=== PATIENT | female | born 1965 | race Two or more races ===

== ENCOUNTER 2020-01-31 10:23 | Emergency (ER) | payer OTHER, SELFPAY ==
[2020-01-31 11:57] VITALS: BP 127/67; PULSE 65; RESP 16; TEMP 37; O2SAT 98; BMI 37.4
[2020-01-31 13:04] VITALS: BP 124/73; PULSE 55; RESP 14; TEMP 36.7; O2SAT 97
--- NOTE | 2020-01-31 13:09 | ECG_ITS ---
Test Reason : CHEST PAIN Blood Pressure : / mmHG Vent. Rate : 055 BPM Atrial Rate : 055 BPM P-R Int : 152 ms QRS Dur : 084 ms QT Int : 430 ms P-R-T Axes : 042 014 012 degrees QTc Int : 411 ms Sinus bradycardia Otherwise normal ECG When compared with ECG of 03/20/18 No significant changes seen Referred By: Tanner Edmondson Electronically Signed By:KARLA HERNANDEZ MD
--- NOTE | 2020-01-31 13:09 | XR_ITS ---
EXAMINATION: XR CHEST CLINICAL INFORMATION: Chest pain COMPARISON: 10/26/2012 TECHNIQUE: Frontal view of the chest was obtained. FINDINGS: Cardiac leads overlie the chest. The lungs are well expanded. Right suprahilar opacity noted. No edema or effusion. No pneumothorax. The cardiomediastinal silhouette is within normal limits. No acute osseous abnormality. IMPRESSION: Right suprahilar airspace opacity may represent atelectasis or pneumonia. Aspiration possible.
[2020-01-31 13:48] LABS: MANUAL DIFF FLAG NO
[2020-01-31 13:52] LABS: Basophils Percent Auto 0.4 % (0-2); Eosinophils Absolute Auto 0.1 X10*3/uL (0.0-0.4); Eosinophils Percent Auto 1.5 % (0-4); Hematocrit 35.6 % (37-47); Hemoglobin 11.8 g/dl (12.0-16.0); Imm Gran Abs Auto 0.02 X10*3/uL (0.00-0.03); Imm Gran Pct Auto 0.4 % (0.0-0.4); Lymphocytes Absolute Auto 1.9 X10*3/uL (1.2-4.9); Lymphocytes Percent Auto 36.8 % (20-40); Mean Corpuscular HGB Conc 33.1 g/dl (31.0-35.0); Mean Corpuscular Hemoglobin 28.9 pg (27.0-33.0); Mean Platelet Volume 11.4 fL (9.4-12.3); Monocytes Absolute Auto 0.4 X10*3/uL (0.1-1.2); Monocytes Percent Auto 7.6 % (2-11); Neutrophils Absolute Auto 2.8 X10*3/uL (2.0-8.3); Neutrophils Percent Auto 53.3 % (45-73); Platelet Count 198 X10*3/uL (160-400); Red Blood Count 4.09 X10*6/uL (4.20-5.50); White Blood Count 5.3 X10*3/uL (4.8-10.8)
[2020-01-31 14:00] VITALS: BP 126/78; PULSE 58; RESP 14; TEMP 36.7; O2SAT 98
[2020-01-31 14:10] LABS: D Dimer 202 NG/ML
[2020-01-31 14:11] LABS: Anion Gap 13 (12-20); Blood Urea Nitrogen 17 mg/dL (9-16); Calcium 8.8 mg/dL (8.4-10.2); Carbon Dioxide 25 mmol/L (22-29); Chloride 105 mmol/L (96-108); Estimated Glomerular Filt Rate > 60; Glucose Random 80 mg/dL (60-115); Potassium 4.1 mmol/l (3.3-5.1); Sodium 139 mmol/L (135-145)
--- NOTE | 2020-01-31 14:16 | ED.CHESTPAIN ---
HPI - Chest Pain General Chief Complaint: Chest Pain Stated Complaint: CHEST PAIN Time Seen by Provider: 01/31/20 13:08 Source: patient Mode of arrival: ambulatory Limitations: no limitations History of Present Illness HPI narrative: otherwise healthy 55-year-old female who reports that she has had some right-sided chest pain for the past couple of days with mild rhinorrhea and some cough that resolved. She otherwise denies any fever chills. 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 She denies any travel. No recent antibiotics. No history of asthma. MD complaint: chest pain Onset (ago): day(s) Onset: during rest Pain location: right chest Pain radiation: none Severity: mild Quality: aching Relieving factors: other ( Has not done anything) Exacerbating factors: nothing Treatment prior to arrival: none Risk Factors Coronary artery disease risk factors: none Related Data Previous Rx's Medication Instructions Recorded azithromycin [Zithromax Z-Wallace] 250 mg PO DAILY 5 Days #6 tab 01/31/20 doxycycline hyclate 100 mg PO BID #20 tab 01/31/20 Allergies Allergy/AdvReac Type Severity Reaction Status Date / Time ibuprofen [IBUPROFEN] Allergy Unknown GI UPSET Unverified 01/03/20 15:17 Review of Systems Review of Systems: Constitutional: No Weight loss, No Fever, + Chills, No Night Sweats, No Fatigue, No Malaise ENT/Mouth: No Hearing loss, No Ear Pain, No Nasal Congestion, No Sinus Pain, No Hoarseness, No sore throat, No Rhinorrhea, No Swallowing Difficulty Eyes: No Eye Pain, No Swelling, No Redness, No Foreign Body, No Discharge, No Vision Changes Cardiovascular: + Chest Pain, No SOB, No Dyspnea on Exertion, No Orthopnea, No Edema, No Palpitations Respiratory: No Cough, No Sputum, No Wheezing, No Smoke Exposure, No Dyspnea Gastrointestinal: No Nausea, No Vomiting, No Diarrhea, No Constipation, No abdominal Pain, No Hematochezia, No Melena Genitourinary: no irregular bleeding, No Dysuria, No Urinary Frequency, No Hematuria, No Urinary Incontinence, No Urgency, No Flank Pain, No Urinary Flow Changes, No Hesitancy Musculoskeletal: No joint pain, No Myalgias, No Joint Swelling Skin: No Skin Lesions, No rash Neuro: No Weakness, No Numbness, No Paresthesias, No Loss of Consciousness, No Dizziness, No Headache Psych: No Anxiety/Panic, No Depression, No SI/HI/AH/VH, No Social Issues, Heme/Lymph: No Bruising, No Bleeding,No Lymphadenopathy Endocrine: No Polyuria, No Polydipsia, No Temperature Intolerance [facility] Past Medical History Medical History (Updated 01/31/20 @ 16:08 by Tanner Edmondson NP) No known health problems Surgical History (Updated 01/31/20 @ 11:59 by Clayton Smiley) Knee joint replacement status S/P cholecystectomy Social History Social History Advance Directives: No Advance Directives Information Provided: No Physical Exam Vital Signs: Vital Signs: Vital Signs Temp Pulse Resp BP Pulse Ox 01/31/20 15:37 98.2 F 61 15 99/59 L 95 01/31/20 14:00 98.1 F 58 14 126/78 98 01/31/20 13:04 98.1 F 55 14 124/73 97 01/31/20 11:57 98.6 F 65 16 127/67 98 Body Mass Index 37.4 Reviewed Const: General: cooperative and healthy appearing; No acute distress or intoxicated appearing Nutritional Appearance: average body habitus Orientation/consciousness: patient oriented x3 HENMT: Head: Yes normal to inspection Ears: hearing grossly normal bilaterally Eyes: General: appearance normal, both eyes and all related structures Visual Peñaloza: normal visual peñaloza by confrontation Neck: Neck: Yes normal visual inspection and No tender Thyroid: Thyroid normal Chest: Chest palpation & inspection: normal inspection of the chest Resp: Effort & Inspection: normal respiratory effort Cardio: Jugular venous distension: no JVD GI: Inspection: Yes normal to inspection Percussion: Yes normal to percussion Auscultation: normal bowel sounds : General: Yes no CVA tenderness Back/Spine/Pelvis: Back: no CVA tenderness Skin: General skin exam: no rashes or lesions noted Neuro: General: patient oriented x3 Extrem: General: Yes normal to inspection Course Course Course Narrative: x-ray findings consistent with atypical pneumonia in the right side did have mild cough but resolved. Mild rhinorrhea. Otherwise hemodynamically stable. No leukocytosis. Afebrile. COVID-19 negative. No shortness of breath on exertion. Pulse ox 100% on room air. Will discharge home with course of antibiotics with close follow-up for repeat x-ray for resolution. Plan reviewed and agreeable. Stable for discharge. MDM - Chest Pain Differential Diagnosis Differential diagnosis: Likely unstable angina pectoris, atypical chest pain ( pneumonia, costochondritis) and chest pain; Unlikely fracture of rib and pneumothorax Lab Data Attestation: I reviewed the patient's lab results. Result diagrams: 01/31/20 01:40 01/31/20 13:31 Labs: Lab Results 01/31/20 01/31/20 01/31/20 Range/Units 01:40 13:31 13:31 WBC 5.3 (4.8-10.8) X10*3/uL RBC 4.09 L (4.20-5.50) X10*6/uL Hgb 11.8 L (12.0-16.0) g/dl Hct 35.6 L (37-47) % MCV 87.0 (80-98) fL MCH 28.9 (27.0-33.0) pg MCHC 33.1 (31.0-35.0) g/dl RDW 14.0 (11.0-16.0) % Plt Count 198 (160-400) X10*3/uL MPV 11.4 (9.4-12.3) fL Immature Gran % (Auto) 0.4 (0.0-0.4) % Neut % (Auto) 53.3 (45-73) % Lymph % (Auto) 36.8 (20-40) % [place] % (Auto) 7.6 (2-11) % Eos % (Auto) 1.5 (0-4) % Baso % (Auto) 0.4 (0-2) % Lymph # (Auto) 1.9 (1.2-4.9) X10*3/uL [place] # (Auto) 0.4 (0.1-1.2) X10*3/uL Eos # (Auto) 0.1 (0.0-0.4) X10*3/uL Baso # (Auto) 0.0 (0.0-0.2) X10*3/uL Abs Immat Gran (auto) 0.02 (0.00-0.03) X10*3/uL Absolute Neuts (auto) 2.8 (2.0-8.3) X10*3/uL Absolute Nucleated RBC 0.000 (0.0-0.012) X10*3/uL Nucleated RBC % (auto) 0.0 (0.0-0.2) /100WBC D-Dimer NG/ML Sodium 139 (135-145) mmol/L Potassium 4.1 (3.3-5.1) mmol/l Chloride 105 (96-108) mmol/L Carbon Dioxide 25 (22-29) mmol/L Anion Gap 13 (12-20) BUN 17 H (9-16) mg/dL Creatinine 0.67 (0.5-1.4) mg/dL Estim Creat Clear Calc 115.0 Estimated GFR > 60 Random Glucose 80 (60-115) mg/dL Calcium 8.8 (8.4-10.2) mg/dL Troponin I High Sens < 3.5 (<3.5-17.0) ng/L Coronavirus (PCR) (Negative) 01/31/20 01/31/20 Range/Units 13:31 14:05 WBC (4.8-10.8) X10*3/uL RBC (4.20-5.50) X10*6/uL Hgb (12.0-16.0) g/dl Hct (37-47) % MCV (80-98) fL MCH (27.0-33.0) pg MCHC (31.0-35.0) g/dl RDW (11.0-16.0) % Plt Count (160-400) X10*3/uL MPV (9.4-12.3) fL Immature Gran % (Auto) (0.0-0.4) % Neut % (Auto) (45-73) % Lymph % (Auto) (20-40) % [place] % (Auto) (2-11) % Eos % (Auto) (0-4) % Baso % (Auto) (0-2) % Lymph # (Auto) (1.2-4.9) X10*3/uL [place] # (Auto) (0.1-1.2) X10*3/uL Eos # (Auto) (0.0-0.4) X10*3/uL Baso # (Auto) (0.0-0.2) X10*3/uL Abs Immat Gran (auto) (0.00-0.03) X10*3/uL Absolute Neuts (auto) (2.0-8.3) X10*3/uL Absolute Nucleated RBC (0.0-0.012) X10*3/uL Nucleated RBC % (auto) (0.0-0.2) /100WBC D-Dimer 202 NG/ML Sodium (135-145) mmol/L Potassium (3.3-5.1) mmol/l Chloride (96-108) mmol/L Carbon Dioxide (22-29) mmol/L Anion Gap (12-20) BUN (9-16) mg/dL Creatinine (0.5-1.4) mg/dL Estim Creat Clear Calc Estimated GFR Random Glucose (60-115) mg/dL Calcium (8.4-10.2) mg/dL Troponin I High Sens (<3.5-17.0) ng/L Coronavirus (PCR) NEGATIVE (Negative) Imaging Data Chest x-ray: Radiologist's impression: [place] [id number] XRay Report Signed Patient: Carolyn Stokes LMR#: [id number] : 1965Acct:[id number] Age/Sex: 55 / FADM Date: 01/31/20 Loc: .ED Attending Dr: Ordering Physician: Tanner Edmondson NP Date of Service: 01/31/20 Procedure(s): XR chest 1V Accession Number(s): [id number] cc: Tanner Edmondson MARKETING INFORMATION COORDINATOR~ EXAMINATION: XR CHEST CLINICAL INFORMATION: Chest pain COMPARISON: 10/26/2012 TECHNIQUE: Frontal view of the chest was obtained. FINDINGS: Cardiac leads overlie the chest. The lungs are well expanded. Right suprahilar opacity noted. No edema or effusion. No pneumothorax. The cardiomediastinal silhouette is within normal limits. No acute osseous abnormality. IMPRESSION: Right suprahilar airspace opacity may represent atelectasis or pneumonia. Aspiration possible. Dictated By:LANEY GREEN MD Signed By:<Electronically signed by LANEY GREEN MD in OV>01/31/20 1344 DD/ 1309 TD/TT: Building Cleaner: DONNA Discharge Plan Discharge Clinical Impression: Pneumonia Qualifiers: Pneumonia type: due to unspecified organism Laterality: right Lung location: unspecified part of lung Qualified Code(s): J18.9 - Pneumonia, unspecified organism Patient Disposition: Home, Self-Care Instructions: Community Acquired Pneumonia (ED) Additional Instructions: today you were evaluated for your right-sided chest pain and the workup shows that you have developing pneumonia on the right side Your blood work overall was okay including blood work for heart Your COVID test was negative Drink plenty of fluids Take medications as prescribed for the full course return if any concerns or worsening symptoms otherwise follow up with her primary care doctor and 1 week for re-evaluation. Thank you Prescriptions: New azithromycin [Zithromax Z-Wallace] 250 mg tablet 250 mg PO DAILY 5 Days Qty: 6 RF: 0 doxycycline hyclate 100 mg tablet 100 mg PO BID Qty: 20 RF: 0 Referrals: Po,Negra Mcpherson MD [Primary Care Provider] - 1 week Stand Alone Forms: Work/School Release
[2020-01-31 14:33] LABS: Troponin-I High Sensitivity < 3.5 ng/L (<3.5-17.0)
[2020-01-31 15:14] LABS: SARS COV2 PCR INHOUSE NEGATIVE (Negative)
[2020-01-31 15:37] VITALS: BP 99/59; PULSE 61; RESP 15; TEMP 36.8; O2SAT 95
== END 2020-01-31 16:42 | disposition home or self-care (01) ==
PROVIDERS: Nurse Practitioner Primary Care; Emergency Provider Emergency Medicine; PCP Internal Medicine
DX: J18.9 Pneumonia, unspecified organism (principal); Z20.828 Contact with and (suspected) exposure to other viral communicable diseases
CPT/HCPCS: 36415; 71045; 80048; 84484; 85025; 85379; 87635; 93005; 99284

== ENCOUNTER 2020-04-11 03:05 | Emergency (ER) | payer OTHER, SELFPAY ==
[2020-04-11 03:20] VITALS: BP 132/84; PULSE 120; RESP 18; TEMP 37.7; O2SAT 95; BMI 43.0
--- NOTE | 2020-04-11 03:47 | XR_ITS ---
EXAMINATION: CHEST 1 VIEW CLINICAL INFORMATION: Covid positivity. COMPARISON: 01/31/2020. TECHNIQUE: An AP view of the chest is provided. FINDINGS: The cardiac silhouette is not enlarged. The mediastinal and hilar contours are unremarkable. There are neither pleural effusions nor pneumothoraces. There are no consolidations. The osseous structures are stable. XR/XR chest 1V IMPRESSION: No evidence for acute disease.
[2020-04-11 04:46] LABS: IDNOW Serial# 9DD0AD1C
[2020-04-11] MEDS: Acetaminophen 325 MG TABLET 650 MG PO (04:46)
[2020-04-11] MEDS: dexAMETHasone 6 MG TABLET PO (04:46)
[2020-04-11 04:48] VITALS: BP 134/63; PULSE 101; RESP 18; O2SAT 95
[2020-04-11 04:48] LABS: COVID-19 Test Positive (Negative)
--- NOTE | 2020-04-11 04:53 | ED_ITS ---
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 cough body ache since yesterday also complaining of headache she worked yesterday no one at home is sick denies any shortness of breath no known COVID-19 contact MD elicited complaint: fever, cough and sore throat Onset (ago): day(s) (2) Consistency: constant Severity: moderate Description of mucous: clear Able to tolerate fluids by mouth: Yes Exacerbating factors: nothing Relieving factors: nothing Associated symptoms: fever, chills, myalgias, headache, rhinorrhea, nasal congestion and sore throat Treatments prior to arrival: none Related Data Previous Rx's Medication Instructions Recorded azithromycin [Zithromax Z-Wallace] 250 mg PO DAILY 5 Days #6 tab 01/31/20 doxycycline hyclate 100 mg PO BID #20 tab 01/31/20 azithromycin [Zithromax] 250 mg PO DAILY 4 Days #4 tab 04/11/20 dexamethasone [Decadron] 6 mg PO DAILY #7 tab 04/11/20 Allergies Allergy/AdvReac Type Severity Reaction Status Date / Time ibuprofen [IBUPROFEN] Allergy Unknown GI UPSET Unverified 01/03/20 15:17 Review of Systems Review of Systems: Constitutional : No Weight loss, ENT/Mouth : No sore throat, No Rhinorrhea Eyes: No Eye Pain, No Swelling Cardiovascular : No Chest Pain, no palpitations Respiratory : No Sputum, no shortness of breath Gastrointestinal : no Nausea, No Vomiting, No Diarrhea, No abdominal Pain, no black stools Genitourinary : No Dysuria, No Urinary Frequency Musculoskeletal : No joint pain, ++ Myalgias, No Joint Swelling Skin : No Skin Lesions, No rash Neuro : No Weakness, No Numbness, No Dizziness, No Headache Psych : No Anxiety/Panic, No Depression Heme/Lymph: No Bruising, No Lymphadenopathy Endocrine : No Polyuria, No Polydipsia All other systems reviewed and are negative PMFSH Past Medical History Medical History Hospital discharge follow-up No known health problems Pneumonia Surgical History History of arthroscopy of both knees History of foot surgery History of tubal ligation Knee joint replacement status S/P cholecystectomy Family History Family History Father Diabetes Hypertension Mother No problems noted. Social History Social History Advance Directives: No Advance Directives Information Provided: No Physical Exam Vital Signs: Vital Signs: Last Vital Signs Temp 99.9 F 04/11/20 03:20 Pulse 101 H 04/11/20 04:48 Resp 18 04/11/20 04:48 BP 134/63 04/11/20 04:48 Pulse Ox 95 04/11/20 04:48 Body Mass Index 43.0 Appearance: Alert. Oriented X3. No acute distress. Eyes: Pupils equal, round and reactive to light. ENT: Pharynx normal. Neck: Normal inspection. Neck supple. CVS: Tachycardia, normal rhythm no murmur Pulses normal. Respiratory: No respiratory distress. Breath sounds normal. Abdomen: Soft and nontender. Bowel sounds are present, no mass palpable, no CVA tenderness Skin: Skin warm and dry. Normal skin color. Normal skin turgor. Extremities: No lower extremity edema. Neuro: Oriented X 3. No motor deficit. No sensory deficit. MDM - URI/Sore Throat MDM Narrative Medical decision making narrative: Is COVID-19 positive 95% saturating at room air chest x-ray negative will discharge her home on Decadron and Zithromax Lab Data Attestation: I reviewed the patient's lab results. Labs: Lab Results 04/11/20 Range/Units 04:08 COVID-19 (STEVEN) Positive A (Negative) COVID-19 Clin Com See Note Discharge Plan Discharge Clinical Impression: COVID-19 Patient Disposition: Home, Self-Care Instructions: COVID-19 (Coronavirus Disease 2019) (ED) Additional Instructions: Drink plenty of fluid take Tylenol for fever take medication as prescribed. Keep social distancing. Report to the ER/PCP if increased shortness of breath Prescriptions: New azithromycin [Zithromax] 250 mg tablet 250 mg PO DAILY 4 Days Qty: 4 RF: 0 dexamethasone [Decadron] 6 mg tablet 6 mg PO DAILY Qty: 7 RF: 0 No Action azithromycin [Zithromax Z-Wallace] 250 mg tablet 250 mg PO DAILY 5 Days Qty: 6 RF: 0 doxycycline hyclate 100 mg tablet 100 mg PO BID Qty: 20 RF: 0
[2020-04-11] MEDS: Azithromycin 500 MG TABLET PO (05:09)
[2020-04-11 05:34] VITALS: O2SAT 95
== END 2020-04-11 05:36 | disposition home or self-care (01) ==
PROVIDERS: Emergency Provider Internal Medicine; PCP Internal Medicine
DX: U07.1 COVID-19 (principal); R05 Cough; M79.10 Myalgia, unspecified site; R51.9 Headache, unspecified; Z79.899 Other long term (current) drug therapy
CPT/HCPCS: 71045; 87635; 99283; 99285; J8540

== ENCOUNTER 2020-04-21 17:59 | Emergency (ER) | payer OTHER, SELFPAY ==
[2020-04-21 18:45] VITALS: BP 133/73; PULSE 88; RESP 20; TEMP 37.4; O2SAT 97; BMI 36.3
--- NOTE | 2020-04-21 19:02 | XR_ITS ---
EXAMINATION: XR CHEST CLINICAL INFORMATION: Worsening shortness of breath and cough COMPARISON: 04/11/2020, 01/31/2020 and 10/26/2012 TECHNIQUE: Frontal view of the chest was obtained. FINDINGS: Compared to the prior study, lung volumes are decreased. I suspect that there are subtle ill-defined patchy infiltrates present bilaterally. No gross consolidation is seen. No pleural effusions are present. Heart size normal without CHF. XR/XR chest 1V IMPRESSION: Hypoventilated lungs with ill-defined patchy infiltrates.
--- NOTE | 2020-04-21 19:24 | ED.SOB ---
HPI - SOB/Dyspnea General Chief Complaint: Dyspnea Stated Complaint: SOB Time Seen by Provider: 04/21/20 18:47 Source: patient Mode of arrival: ambulatory Limitations: no limitations History of Present Illness HPI Narrative: Patient comes to the emergency room complaining of shortness of breath. Patient states she was diagnosed with COVID on April 11. Patient states that she told a friend that she was having shortness of breath, and they told her to come to the emergency room. MD elicited complaint: shortness of breath and cough Related Data Previous Rx's Medication Instructions Recorded azithromycin [Zithromax Z-Wallace] 250 mg PO DAILY 5 Days #6 tab 01/31/20 doxycycline hyclate 100 mg PO BID #20 tab 01/31/20 azithromycin [Zithromax] 250 mg PO DAILY 4 Days #4 tab 04/11/20 dexamethasone [Decadron] 6 mg PO DAILY #7 tab 04/11/20 benzonatate [Tessalon Perles] 100 mg PO TID PRN #14 cap 04/21/20 dexamethasone 6 mg PO DAILY #5 tab 04/21/20 Allergies Allergy/AdvReac Type Severity Reaction Status Date / Time ibuprofen [IBUPROFEN] Allergy Unknown GI UPSET Verified 04/21/20 20:55 Review of Systems Review of Systems: Constitutional : No Weight loss, No Fever, No Chills, No Night Sweats, No Fatigue, No Malaise ENT/Mouth : No Hearing loss, No Ear Pain, No Nasal Congestion, No Sinus Pain, No Hoarseness, No sore throat, No Rhinorrhea, No Swallowing Difficulty Eyes: No Eye Pain, No Swelling, No Redness, No Foreign Body, No Discharge, No Vision Changes Cardiovascular : No Chest Pain, No SOB, No Dyspnea on Exertion, No Orthopnea, No Edema, No Palpitations Respiratory : Complaining of cough, shortness of breath while coughing No Wheezing, No Smoke Exposure Gastrointestinal : No Nausea, No Vomiting, No Diarrhea, No Constipation, No abdominal Pain, No Hematochezia, No Melena Genitourinary : no irregular bleeding, No Dysuria, No Urinary Frequency, No Hematuria, No Urinary Incontinence, No Urgency, No Flank Pain, No Urinary Flow Changes, No Hesitancy Musculoskeletal : No joint pain, No Myalgias, No Joint Swelling Skin : No Skin Lesions, No rash Neuro : No Weakness, No Numbness, No Paresthesias, No Loss of Consciousness, No Dizziness, No Headache Psych : No Anxiety/Panic, No Depression, No SI/HI/AH/VH, No Social Issues, Heme/Lymph: No Bruising, No Bleeding,No Lymphadenopathy Endocrine : No Polyuria, No Polydipsia, No Temperature Intolerance [facility] Past Medical History Medical History Hospital discharge follow-up No known health problems Pneumonia Surgical History History of arthroscopy of both knees History of foot surgery History of tubal ligation Knee joint replacement status S/P cholecystectomy Family History Family History Father Diabetes Hypertension Mother No problems noted. Social History Social History Alcohol intake: never Smoking Status: Never smoker Advance Directives: No Advance Directives Information Provided: Yes Physical Exam Vital Signs: Vital Signs: Last Vital Signs Temp 99.3 F 04/21/20 18:45 Pulse 88 04/21/20 18:45 Resp 20 04/21/20 18:45 BP 133/73 04/21/20 18:45 Pulse Ox 97 04/21/20 18:45 Body Mass Index 36.3 Appearance: Alert. Oriented X3. No acute distress. Eyes: Pupils equal, round and reactive to light. ENT: Pharynx normal. Neck: Normal inspection. Neck supple. No lymph nodes noted. No crepitus CVS: Normal heart rate and rhythm. Pulses normal. Normal S1 and S2 Respiratory: No respiratory distress. Breath sounds normal. No Wheezing. No rales , actively coughing Abdomen: Soft and nontender. No rigidity. No distention. good BS x4 Skin: Skin warm and dry. Normal skin color. Normal skin turgor. Extremities: No lower extremity edema. No lower extremity edema. No Lacerations. No Rash Neuro: Oriented X 3. No motor deficit. No sensory deficit. Moving all extermities. No slurred speech. Course Course Course Narrative: Patient is known to have COVID-19. Chest x-ray shows that there is decrease lung volume, however, patient's oxygen saturation remains constantly at 95-96%. Patient will be sent home with oral Decadron MDM - SOB/Dyspnea Imaging Data Chest x-ray: Radiologist's impression: Compared to the prior study, lung volumes are decreased. I suspect that there are subtle ill-defined patchy infiltrates present bilaterally. No gross consolidation is seen. No pleural effusions are present. Heart size normal without CHF. XR/XR chest 1V IMPRESSION: Hypoventilated lungs with ill-defined patchy infiltrates. Discharge Plan Discharge Clinical Impression: COVID-19, Cough Patient Disposition: Home, Self-Care Instructions: COVID-19 (Coronavirus Disease 2019) (ED) Additional Instructions: Please follow-up with your primary care physician tomorrow. If you have any worsening or new symptoms, please return to the emergency room or call 911 Prescriptions: New benzonatate [Tessalon Perles] 100 mg capsule 100 mg PO TID PRN (Reason: cough) Qty: 14 RF: 0 dexamethasone 6 mg tablet 6 mg PO DAILY Qty: 5 RF: 0 No Action azithromycin [Zithromax] 250 mg tablet 250 mg PO DAILY 4 Days Qty: 4 RF: 0 dexamethasone [Decadron] 6 mg tablet 6 mg PO DAILY Qty: 7 RF: 0 azithromycin [Zithromax Z-Wallace] 250 mg tablet 250 mg PO DAILY 5 Days Qty: 6 RF: 0 doxycycline hyclate 100 mg tablet 100 mg PO BID Qty: 20 RF: 0
[2020-04-21] MEDS: dexAMETHasone 6 MG TABLET PO (21:06)
[2020-04-21] MEDS: Benzonatate 100 MG CAPSULE PO (21:06)
[2020-04-21 21:07] VITALS: PULSE 91; O2SAT 97
== END 2020-04-21 21:11 | disposition home or self-care (01) ==
PROVIDERS: Emergency Provider Emergency Medicine
DX: R05 Cough (principal); R06.02 Shortness of breath; Z86.16 Personal history of COVID-19
CPT/HCPCS: 71045; 99283; 99284; J8540

== ENCOUNTER → 2020-06-17 14:27 | Outpatient (BNVA) | payer OTHER, SELFPAY | PROVIDERS: PCP Internal Medicine; Visit Provider Orthopaedic Surgery | DX: M17.12 Unilateral primary osteoarthritis, left knee (principal) | CPT/HCPCS: 20610; J1040 ==

== ENCOUNTER → 2021-01-05 09:16 | Outpatient (BNVA) | payer SELFPAY | PROVIDERS: PCP Internal Medicine ==

== ENCOUNTER 2021-02-07 08:04 | Outpatient (REF) | payer OTHER, SELFPAY ==
--- NOTE | ~2021-02-07 | MM_ITS ---
EXAMINATION: MM SCREENING DIGITAL BREAST TOMOSYNTHESIS, BILATERAL CLINICAL INFORMATION: Screening. Asymptomatic. The lifetime risk of breast cancer based on the Tyrer-Cuzick Model is 6%. COMPARISON: Mammography: 10/13/2019, 09/23/2018, 08/13/2017 TECHNIQUE: Digital breast tomosynthesis is performed in both the craniocaudal and mediolateral oblique views along with computer-aided detection (CAD). Synthesized 2D images are generated from the tomosynthesis. FINDINGS: The breasts are almost entirely fatty (ACR BI-RADS breast composition Category a). There are no significant masses, abnormal calcifications, or other abnormalities. Background stromal markings are stable. The axilla and skin contours are unremarkable. No significant changes. MM/MM tomosynthesis screening BI IMPRESSION: No mammographic evidence of malignancy. ASSESSMENT: BI-RADS 1: Negative RECOMMENDATION: Routine annual mammography screening. This patient's information was entered into a reminder system with a target due date for their next mammogram.
== END 2021-02-07 08:05 | disposition home or self-care (01) ==
LOC: HO.MAMMO 08:04
PROVIDERS: PCP Internal Medicine; Visit Provider Internal Medicine
DX: Z12.31 Encounter for screening mammogram for malignant neoplasm of breast (principal)
CPT/HCPCS: 77063; 77067

== ENCOUNTER 2021-02-26 07:23 | Outpatient (REF) | payer OTHER, SELFPAY ==
[2021-02-26 11:16] LABS: MANUAL DIFF FLAG NO
[2021-02-26 11:24] LABS: Basophils Percent Auto 0.5 % (0-2); Eosinophils Absolute Auto 0.1 X10*3/uL (0.0-0.4); Eosinophils Percent Auto 1.6 % (0-4); Hematocrit 39.7 % (37.0-47.0); Hemoglobin 12.5 g/dl (12.0-16.0); Imm Gran Abs Auto 0.01 X10*3/uL (0.00-0.03); Imm Gran Pct Auto 0.2 % (0.0-0.4); Lymphocytes Absolute Auto 1.9 X10*3/uL (1.2-4.9); Lymphocytes Percent Auto 33.3 % (20-40); Mean Corpuscular HGB Conc 31.5 g/dl (31.0-35.0); Mean Corpuscular Hemoglobin 27.1 pg (27.0-33.0); Mean Corpuscular Volume 86.1 fL (80.0-98.0); Mean Platelet Volume 12.4 fL (9.4-12.3); Monocytes Absolute Auto 0.5 X10*3/uL (0.1-1.2); Monocytes Percent Auto 8.5 % (2-11); Neutrophils Absolute Auto 3.2 x10*3/uL (2.0-8.3); Neutrophils Percent Auto 55.9 % (45-73); Platelet Count 254 X10*3/uL (160-400); Red Blood Count 4.61 X10*6/uL (4.20-5.50); Red Cell Distribution Width 14.8 % (11.0-16.0); White Blood Count 5.7 X10*3/uL (4.8-10.8)
[2021-02-26 11:46] LABS: Alanine Aminotransferase 18 U/L (0-31); Albumin Level 4.2 g/dL (3.5-5.0); Alkaline Phosphatase 106 U/L (39-117); Anion Gap 12 (12-20); Aspartate Amino Transferase 17 U/L (5-31); Bilirubin Total 0.5 mg/dL (0.0-1.0); Blood Urea Nitrogen 15 mg/dL (9-16); Calcium 8.5 mg/dL (8.4-10.2); Carbon Dioxide 24 mmol/L (22-29); Chloride 107 mmol/L (96-108); Cholesterol 196 mg/dL; Estimated Glomerular Filt Rate > 60; Glucose Random 95 mg/dL (60-115); HDL Cholesterol 62 mg/dL; LDL Cholesterol Calculated 115 mg/dl; Potassium 4.3 mmol/L (3.3-5.1); Sodium 139 mmol/L (135-145); Total Protein 7.4 g/dL (6.5-8.0); Triglycerides 96 mg/dL
[2021-02-26 11:59] LABS: Free T4 (Free Thyroxine) 1.02 ng/dL (0.71-1.85); Thyroid Stimulating Hormone 1.38 uIU/mL (0.32-4.0); Vitamin D 25-OH Total 7.7 ng/mL (>30)
[2021-02-26 12:19] LABS: Folate 7.9 ng/mL (> or = 4.0); Vitamin B12 280 pg/mL (200-900)
== END 2021-02-26 07:24 | disposition home or self-care (01) ==
LOC: HO.HMGCLDS 07:23
PROVIDERS: PCP Internal Medicine; Visit Provider Internal Medicine
DX: E78.00 Pure hypercholesterolemia, unspecified (principal); K21.9 Gastro-esophageal reflux disease without esophagitis
CPT/HCPCS: 36415; 80053; 80061; 82306; 82607; 82746; 84439; 84443; 85025

== ENCOUNTER → 2021-06-25 15:22 | Outpatient (BNVA) | payer OTHER, SELFPAY | PROVIDERS: PCP Internal Medicine; Visit Provider Orthopaedic Surgery ==

== ENCOUNTER → 2021-08-03 12:12 | Outpatient (REF) | payer OTHER, SELFPAY ==
--- NOTE | 2021-08-03 12:23 | ECG_ITS ---
Test Reason : CHEST PAIN Blood Pressure : / mmHG Vent. Rate : 076 BPM Atrial Rate : 076 BPM P-R Int : 150 ms QRS Dur : 072 ms QT Int : 368 ms P-R-T Axes : 033 009 001 degrees QTc Int : 414 ms Normal sinus rhythm Normal ECG When compared with ECG of 31-JAN-2020 13:38, No significant change was found Referred By: Negra Herrera Electronically Signed By:ABHINAV ALEJANDRO MD
[2021-08-03 12:37] LABS: MANUAL DIFF FLAG NO
[2021-08-03 13:24] LABS: Basophils Percent Auto 0.6 % (0-2); Eosinophils Absolute Auto 0.1 X10*3/uL (0.0-0.4); Eosinophils Percent Auto 1.7 % (0-4); Hematocrit 39.6 % (37.0-47.0); Hemoglobin 12.7 g/dl (12.0-16.0); Imm Gran Abs Auto 0.01 X10*3/uL (0.00-0.03); Imm Gran Pct Auto 0.1 % (0.0-0.4); Lymphocytes Absolute Auto 2.5 X10*3/uL (1.2-4.9); Lymphocytes Percent Auto 34.2 % (20-40); Mean Corpuscular HGB Conc 32.1 g/dl (31.0-35.0); Mean Corpuscular Hemoglobin 27.9 pg (27.0-33.0); Mean Platelet Volume 12.4 fL (9.4-12.3); Monocytes Absolute Auto 0.5 X10*3/uL (0.1-1.2); Monocytes Percent Auto 7.3 % (2-11); Neutrophils Absolute Auto 4.1 x10*3/uL (2.0-8.3); Neutrophils Percent Auto 56.1 % (45-73); Platelet Count 254 X10*3/uL (160-400); Red Blood Count 4.55 X10*6/uL (4.20-5.50); Red Cell Distribution Width 14.5 % (11.0-16.0); White Blood Count 7.3 X10*3/uL (4.8-10.8)
== END ==
LOC: HO.CARD 12:12
PROVIDERS: PCP Internal Medicine; Visit Provider Internal Medicine
DX: R07.9 Chest pain, unspecified (principal)
CPT/HCPCS: 36415; 85025; 93005

== ENCOUNTER → 2021-08-27 15:07 | Outpatient (BNVA) | payer OTHER, SELFPAY | PROVIDERS: Visit Provider Physician Assistant | DX: M17.12 Unilateral primary osteoarthritis, left knee (principal) ==

== ENCOUNTER 2021-09-01 07:49 | Inpatient (IN) | payer OTHER, SELFPAY ==
[2021-08-27 14:11] VITALS: BP 131/73; PULSE 86; RESP 20; O2SAT 97; BMI 40.6
--- NOTE | 2021-08-27 14:20 | P.CONAN_ITS ---
Documented by User: Marielle Kennedy NP 08/27/21 14:32 HPI - Anesthesia Eval Consult details Narrative: 56yo F for Left Knee Replacement Total PCP cleared s/p R TKA 2018 with spinal/block Pt with nasal piercing that will not remove. Aware of risks. PMFSH Active Problems Active Problems: All Active Problems (Updated 08/26/21 @ 08:26 by Genesis Garcia RN) Primary osteoarthritis of left knee (Acute) Hypercholesterolemia (Acute) Macromastia (Acute) Constipation (Acute) Annual physical exam (Acute) Right-sided chest pain (Acute) Obesity (BMI 30-39.9) (Acute) GERD (gastroesophageal reflux disease) (Acute) Past Medical History Medical History (Updated 08/26/21 @ 08:26 by Genesis Garcia RN) Anxiety and depression COVID-19 Fibromyalgia GERD (gastroesophageal reflux disease) History of anemia History of vitamin D deficiency Hx of low back pain IBS (irritable bowel syndrome) Migraine Obesity (BMI 30-39.9) Osteoarthritis Peripheral vascular disease Pneumonia Psoriasis Recurrent major depression Family History Family History Father Diabetes Hypertension Mother No problems noted. Surgical History Surgical History (Updated 08/26/21 @ 08:30 by Genesis Garcia RN) History of arthroscopy of both knees History of bunionectomy of both great toes History of colonoscopy History of foot surgery History of total right knee replacement (TKR) History of tubal ligation S/P cholecystectomy S/P right unicompartmental knee replacement Social History Social History (Updated 07/20/21 @ 18:37 by Negra Herrera MD) Household Members: Spouse Housing: House Are you a primary progressive care nurse to a significant other at home: No Do you presently have visiting nurse or other home services: No Alcohol intake: never Patient Tobacco Use Status: Former Tobacco user Quit Date: 20 yrs ago Tobacco use type: Cigarette Years Smoked: 2009 quit e-Cigarette/Vaping Use: Never Used Second Hand Smoke Exposure: No Current occupational status: employed Cognitive needs: No Hearing needs: No Vision needs: Yes Narrative Narrative: No recent illness No CP/SOB within limits of pain Increased GERD symptoms recently, PCP started on omeprazole but patient hasnt taken yet. Will start today. Meds Allergies Allergy/AdvReac Type Severity Reaction Status Date / Time ibuprofen [IBUPROFEN] Allergy Unknown GI UPSET Verified 08/26/21 08:36 Home Medications Medication Instructions Recorded Confirmed Last Taken Type acetaminophen 325 mg tablet 325 mg PO QID PRN 02/19/21 08/26/21 Unknown History (Tylenol) axlijli-otmqgchxqejff-jmjmwrtt 250 1 tab PO Q4-6H PRN 07/20/21 08/26/21 Unknown History mg-250 mg-65 mg tablet (Excedrin Migraine) Exam Exam Date and Time: August 27, 2021 1420 Height,Weight and Vital Signs: Height 5 ft 5 in Weight 110.677 kg Last Vital Signs Pulse 86 08/27/21 14:11 Resp 20 08/27/21 14:11 BP 131/73 08/27/21 14:11 Pulse Ox 97 08/27/21 14:11 Narrative Narrative: EKG 07/2021 Vent. Rate : 076 BPM ? ? Atrial Rate : 076 BPM ?? P-R Int : 150 ms? QRS Dur : 072 ms ? ? QT Int : 368 ms ? ? ? P-R-T Axes : 033 009 001 degrees ?? QTc Int : 414 ms ? Normal sinus rhythm Normal ECG When compared with ECG of 31-JAN-2020 13:38, No significant change was found Airway Mallampati Class: II TM Dist: >3cm Neck ROM: Full Loose/Missing/Broken Teeth: Yes (Molars pulled) Heart: RRR Lungs: CTAB Assessment and Plan Assessment Anesthesia Assessment: Anesthesia Plan Discussed and PAT Visit Documented by User: Mark Pimentel MD 09/01/21 18:34 [facility] Past Medical History Medical History (Updated 08/26/21 @ 08:26 by Genesis Garcia RN) Anxiety and depression COVID-19 Fibromyalgia GERD (gastroesophageal reflux disease) History of anemia History of vitamin D deficiency Hx of low back pain IBS (irritable bowel syndrome) Migraine Obesity (BMI 30-39.9) Osteoarthritis Peripheral vascular disease Pneumonia Psoriasis Recurrent major depression Family History Family History Father Diabetes Hypertension Mother No problems noted. Family history of problems with anesthesia: No Surgical History Surgical History (Updated 08/26/21 @ 08:30 by Genesis Garcia RN) History of arthroscopy of both knees History of bunionectomy of both great toes History of colonoscopy History of foot surgery History of total right knee replacement (TKR) History of tubal ligation S/P cholecystectomy S/P right unicompartmental knee replacement History of Problems with Anesthesia: No Social History Social History (Updated 07/20/21 @ 18:37 by Negra Herrera MD) Household Members: Spouse Housing: House Are you a primary progressive care nurse to a significant other at home: No Do you presently have visiting nurse or other home services: No Alcohol intake: never Patient Tobacco Use Status: Former Tobacco user Quit Date: 20 yrs ago Tobacco use type: Cigarette Years Smoked: 2009 quit e-Cigarette/Vaping Use: Never Used Second Hand Smoke Exposure: No Current occupational status: employed Cognitive needs: No Hearing needs: No Vision needs: Yes Meds Allergies Allergy/AdvReac Type Severity Reaction Status Date / Time ibuprofen [IBUPROFEN] Allergy Unknown GI UPSET Verified 08/26/21 08:36 Home Medications Medication Instructions Recorded Confirmed Last Taken Type acetaminophen 325 mg tablet 325 mg PO QID PRN 02/19/21 08/26/21 Unknown History (Tylenol) fxzgfox-kgrmjwkmewhrg-krgckrka 250 1 tab PO Q4-6H PRN 07/20/21 08/26/21 Unknown History mg-250 mg-65 mg tablet (Excedrin Migraine) Exam Airway Mallampati Class: III Loose/Missing/Broken Teeth: Yes (Molars pulled, chipped teeth ) Assessment and Plan Assessment Anesthesia Assessment: Chart Reviewed Final Anesthetic Review Family History of Problems with Anesthesia: No History of Problems with Anesthesia: No NPO: Yes ASA Class: III Final Preanesthetic Review: Meds/Allgs Chart Reviewed, Consent Obtained/Reviewed and Anes Risks/Benef Reviewed Patient Risk: Intermediate Procedure Risk: Intermediate Anesthetic Plan Anesthetic Plan: Spinal and Regional Block Disposition: Inp. Admit - Standard Bed
[2021-08-27 16:33] LABS: Anion Gap 12 (12-20); Blood Urea Nitrogen 10 mg/dL (9-16); Calcium 9.1 mg/dL (8.4-10.2); Carbon Dioxide 28 mmol/L (22-29); Chloride 108 mmol/L (96-108); Creatinine Clr Calc Pharmacy 98.3; Estimated Glomerular Filt Rate > 60; Glucose Random 79 mg/dL (60-115); Potassium 4.5 mmol/L (3.3-5.1); Sodium 143 mmol/L (135-145)
[2021-08-28 11:45] LABS: MRSA Nasal PCR NEGATIVE (Negative); SA Nasal PCR NEGATIVE (Negative)
[2021-09-01] VITALS (22 sets, daily range): BP systolic 90–141; BP diastolic 32–75; PULSE 53–99; RESP 12–20; TEMP 36.2–37.2; O2SAT 94–100
--- NOTE | ~2021-09-01 | XR_ITS ---
EXAMINATION: XR KNEE, LEFT CLINICAL INFORMATION: Left total knee arthroplasty COMPARISON: 04/03/2019 TECHNIQUE: Two views of the left knee. FINDINGS: Patient is postop with surgical satnam present. A new left knee arthroplasty is present with components in good position. Air is seen in the surrounding tissues consistent with a postop state. XR/XR knee LT 2V IMPRESSION: Appropriate alignment of the left total knee arthroplasty.
--- NOTE | 2021-09-01 08:22 | PHA.MEDREC ---
Pharmacy Consult ? Medication Reconciliation Pharmacy has reviewed the medication reconciliation.
[2021-09-01 08:30] LABS: Hematocrit 39.8 % (37.0-47.0); Hemoglobin 12.8 g/dl (12.0-16.0)
[2021-09-01 08:41] LABS: IDNOW Serial# 16C4AD1C
[2021-09-01 08:42] LABS: COVID-19 Test Negative (Negative)
[2021-09-01] MEDS: Lactated Ringers 1,000 ML 100 ML IVCONT ×2 (09:17→16:34)
--- NOTE | 2021-09-01 10:04 | PC.NURSE ---
Patient unable to remove nose piercing x1. Patient educated on risks of bringing metal into the OR. Piercing taped.
--- NOTE | 2021-09-01 10:20 | MHC.SHP ---
Pre-Procedural Eval Section A Date of Service: 09/01/21 The patient is an INPATIENT: No Changes since office visit: Yes Patient answered all questions; No Cold of Flu in the past 2 weeks, No New Medical Problems and No Changes in Medication The History & Physical has been completed within 30 days and I have reviewed it.: Yes Section B Chief Complaint: LT TKA Allergies: Allergies Allergy/AdvReac Type Severity Reaction Status Date / Time ibuprofen [IBUPROFEN] Allergy Unknown GI UPSET Verified 08/26/21 08:36 Plan I have reviewed the history and physical and performed a pertinent physical examination on my patient. No changes have occurred unless specified.
--- NOTE | 2021-09-01 12:51 | PM.OP ---
Brief Operative Note Date of Service: 09/01/21 Pre-op diagnosis: Left knee OA Post-op diagnosis: same Procedure: Left TKA Implants: [place] Triathalon cruciate retaining press fit 05/21/11 Surgeon: Elder Whitaker MD Anesthesia: regional and spinal Was an Engineer Automated Equipment used for this Procedure?: Yes Engineer Automated Equipment: Sherry Amador Estimated blood loss (mL): 150 IV fluids (mL): 1,000 Pathology: other Condition: stable Disposition: PACU
[2021-09-01] MEDS: Acetaminophen 325 MG TABLET 650 MG PO (13:07)
[2021-09-01] MEDS: fentaNYL citrate/PF 100 MCG/2 ML VIAL 25 MCG IVPUSH (13:08)
[2021-09-01] MEDS: HYDROmorphone HCl 0.5 MG/0.5 ML SYRINGE 0.25 MG IVPUSH ×5 (13:30→15:53)
[2021-09-01] MEDS: oxyCODONE HCl Immed Release 5 MG TABLET PO (15:35)
[2021-09-01] MEDS: ceFAZolin Sodium/Dextrose,Iso 2 GM/50 ML PIGGYBACK IV (16:34)
[2021-09-01] MEDS: oxyCODONE HCl Immed Release 5 MG TABLET 10 MG PO (17:18)
[2021-09-01] MEDS: Docusate Sodium 100 MG CAPSULE PO (20:46)
[2021-09-01] MEDS: Celecoxib 200 MG CAPSULE PO (20:46)
[2021-09-01] MEDS: oxyCODONE HCl ER 10 MG TAB.ER.12H 20 MG PO (20:46)
[2021-09-01] MEDS: HYDROmorphone HCl 1 MG/ML SYRINGE 0.25 MG IVPUSH (20:46)
[2021-09-01] MEDS: 0.9 % Sodium Chloride Flush 3 ML SYRINGE IVFLUSH (20:50)
[2021-09-02] VITALS (8 sets, daily range): BP systolic 115–134; BP diastolic 52–68; PULSE 76–100; RESP 16–18; TEMP 36.3–37.2; O2SAT 91–96
[2021-09-02] MEDS: oxyCODONE HCl Immed Release 5 MG TABLET 10 MG PO ×3 (00:45→18:45)
[2021-09-02] MEDS: Lactated Ringers 1,000 ML 100 ML IVCONT (03:20)
[2021-09-02] MEDS: Acetaminophen 325 MG TABLET 650 MG PO (04:27)
[2021-09-02 06:25] LABS: MANUAL DIFF FLAG NO
[2021-09-02 06:38] LABS: Basophils Percent Auto 0.2 % (0-2); Eosinophils Percent Auto 0.2 % (0-4); Hematocrit 30.9 % (37.0-47.0); Hemoglobin 10.2 g/dl (12.0-16.0); Imm Gran Abs Auto 0.04 X10*3/uL (0.00-0.03); Imm Gran Pct Auto 0.4 % (0.0-0.4); Lymphocytes Absolute Auto 1.6 X10*3/uL (1.2-4.9); Mean Corpuscular Hemoglobin 28.3 pg (27.0-33.0); Mean Corpuscular Volume 85.6 fL (80.0-98.0); Mean Platelet Volume 12.5 fL (9.4-12.3); Monocytes Absolute Auto 0.8 X10*3/uL (0.1-1.2); Monocytes Percent Auto 7.9 % (2-11); Neutrophils Absolute Auto 7.3 x10*3/uL (2.0-8.3); Neutrophils Percent Auto 75.3 % (45-73); Platelet Count 172 X10*3/uL (160-400); Red Blood Count 3.61 X10*6/uL (4.20-5.50); Red Cell Distribution Width 14.6 % (11.0-16.0); White Blood Count 9.7 X10*3/uL (4.8-10.8)
[2021-09-02 07:05] LABS: Anion Gap 11 (12-20); Blood Urea Nitrogen 12 mg/dL (9-16); Carbon Dioxide 27 mmol/L (22-29); Chloride 100 mmol/L (96-108); Creatinine Clr Calc Pharmacy 104.8; Estimated Glomerular Filt Rate > 60; Glucose Fasting 111 mg/dL (60-99); Potassium 4.3 mmol/L (3.3-5.1); Sodium 134 mmol/L (135-145)
--- NOTE | 2021-09-02 07:33 | P.PNOP_ITS ---
Subjective Subjective Date of Service: 09/02/21 Interval history: POD1 s/p LTKA. Pain is well managed. Resting comfortably in bed. No overnight events. No additional complaints. Physical Exam Vital Signs: Vital Signs: Last Vital Signs Temp 97.6 F 09/02/21 03:09 Pulse 98 09/02/21 03:09 Resp 16 09/02/21 03:09 BP 123/54 L 09/02/21 03:09 Pulse Ox 93 09/02/21 03:09 BMI result Body Mass Index 40.6 Const: General: cooperative, healthy appearing and no acute distress Resp: Effort & Inspection: normal respiratory effort and able to speak in c omplete sentences Cardio: Rate: regular rate Peripheral pulses: Peripheral pulses 2+ throughout GI: Palpation (GI): Soft to palpation Skin: Lesions: no lesions Rashes: no rashes Extrem: Other: Left knee Aquacel is clean, dry, and intact. NVI Procedures Date of Service Date of Service: 09/02/21 Progress Note: A&P Assessment and plan (1) Status post total knee replacement, left: Status: Acute Plan Continue pain mgmnt Begin ASA for dvt ppx begin PT for LTKA Dispo planning-Pending PT eval, pain mgmnt Time Spent With Patient Time: Total time spent is greater than 50% in coordination of care (as documented) at patient's floor/unit and/or counseling patient: Quality Stroke Does the patient have a stroke diagnosis?: No VTE Prior VTE?: No VTE Risk Level:: Surgical - very high VTE Device Contraindication: N/A - Device Ordered VTE Drug Contraindication: N/A - Med Ordered
[2021-09-02 07:34] LABS: Calcium 8.2 mg/dL (8.4-10.2)
[2021-09-02] MEDS: oxyCODONE HCl ER 10 MG TAB.ER.12H 20 MG PO ×2 (09:08→21:14)
[2021-09-02] MEDS: Docusate Sodium 100 MG CAPSULE PO ×2 (09:09→21:13)
[2021-09-02] MEDS: Omeprazole 20 MG CAPSULE.DR PO (09:09)
[2021-09-02] MEDS: Celecoxib 200 MG CAPSULE PO ×2 (09:09→21:14)
[2021-09-02] MEDS: Aspirin 325 MG TABLET PO ×2 (09:09→21:14)
--- NOTE | 2021-09-02 14:14 | HO.POSTANES ---
Post Anesthesia Evaluation Post Anesthesia Evaluation Vital Signs: Vital Signs Temp Pulse Resp BP Pulse Ox 09/02/21 11:32 98.6 F 94 18 129/66 96 09/02/21 08:48 95 122/68 96 09/02/21 07:30 97.4 F 95 18 122/68 96 09/02/21 03:09 97.6 F 98 16 123/54 L 93 Anesthesia: Spinal and Nerve Block Mental Status: Awake Pain Control: Satisfactory Nausea/Vomiting: None Hydration: Adequate Anesthesia-Related Issues: No Anes. Related Issues
--- NOTE | 2021-09-02 15:45 | PC.NURSE ---
11:35 am Patient PIV infiltrated,patient c/o pain at site. Notified Rory MONSALVE who gave order via [employer] connect to d/c iv fluid and iv access could remain out as long as patient is not getting iv dilaudid. IV not restarted.
[2021-09-03 03:29] VITALS: BP 103/43; PULSE 99; RESP 16; O2SAT 92
[2021-09-03] MEDS: Acetaminophen 325 MG TABLET 650 MG PO (03:34)
[2021-09-03] MEDS: Omeprazole 20 MG CAPSULE.DR PO (05:51)
[2021-09-03 06:45] LABS: MANUAL DIFF FLAG NO
[2021-09-03 07:13] LABS: Basophils Percent Auto 0.3 % (0-2); Eosinophils Absolute Auto 0.1 X10*3/uL (0.0-0.4); Eosinophils Percent Auto 1.2 % (0-4); Hematocrit 28.1 % (37.0-47.0); Hemoglobin 9.1 g/dl (12.0-16.0); Imm Gran Abs Auto 0.04 X10*3/uL (0.00-0.03); Imm Gran Pct Auto 0.4 % (0.0-0.4); Lymphocytes Absolute Auto 1.7 X10*3/uL (1.2-4.9); Lymphocytes Percent Auto 17.3 % (20-40); Mean Corpuscular HGB Conc 32.4 g/dl (31.0-35.0); Mean Corpuscular Hemoglobin 27.7 pg (27.0-33.0); Mean Corpuscular Volume 85.7 fL (80.0-98.0); Mean Platelet Volume 11.8 fL (9.4-12.3); Monocytes Absolute Auto 0.8 X10*3/uL (0.1-1.2); Monocytes Percent Auto 8.6 % (2-11); Neutrophils Percent Auto 72.2 % (45-73); Platelet Count 141 X10*3/uL (160-400); Red Blood Count 3.28 X10*6/uL (4.20-5.50); Red Cell Distribution Width 14.6 % (11.0-16.0); White Blood Count 9.7 X10*3/uL (4.8-10.8)
[2021-09-03 07:16] LABS: Anion Gap 11 (12-20); Blood Urea Nitrogen 9 mg/dL (9-16); Calcium 8.1 mg/dL (8.4-10.2); Carbon Dioxide 27 mmol/L (22-29); Chloride 102 mmol/L (96-108); Creatinine Clr Calc Pharmacy 110.6; Estimated Glomerular Filt Rate > 60; Glucose Fasting 115 mg/dL (60-99); Potassium 3.7 mmol/L (3.3-5.1); Sodium 136 mmol/L (135-145)
--- NOTE | 2021-09-03 08:03 | P.CDIC_ITS ---
CDI Concurrent Query Documentation Clarification: PHYSICIAN'S DOCUMENTATION REQUEST Date of Query: 09/03/2105 Patient Name: Carolyn Stokes Admit Date: 09/01/21 Dear Doctor, A review of the medical record indicates additional documentation may be needed. Please review below and update the documentation accordingly. Clinical Indicators: Risk Factors/Clinical Indicators/Treatments Body mass index: 40.6 5' 5 in height. If possible, please provide an associated diagnosis related to the abnormal BMI, such as: For a BMI >= 40: * Overweight * Obesity * Due to excess calories * Drug induced * Due to other cause * Severe or Morbid Obesity * With alveolar hypoventilation * Without alveolar hypoventilation Or: * BMI is not significant * Other (please specify) * Unable to determine Use of terms such as suspected, likely, concern for, or probable (associated with a specific diagnosis that is being evaluated, monitored, or treated as if it exists) are acceptable and can be coded in the inpatient setting, when documented at the time of discharge. Thank you, Gabriela Echols [facility], CDIS Extension: [phone] Please use your independent medical judgment in providing your response. THIS QUERY IS PART OF THE PERMANENT MEDICAL RECORD
--- NOTE | 2021-09-03 08:03 | MHC.CDI.CONC ---
CDI Concurrent Query Documentation Clarification: PHYSICIAN'S DOCUMENTATION REQUEST Date of Query: 09/03/2105 Patient Name: Carolyn Stokes Admit Date: 09/01/21 Dear Doctor, A review of the medical record indicates additional documentation may be needed. Please review below and update the documentation accordingly. Clinical Indicators: Risk Factors/Clinical Indicators/Treatments Body mass index: 40.6 5' 5 in height. If possible, please provide an associated diagnosis related to the abnormal BMI, such as: For a BMI >= 40: Overweight Obesity Due to excess calories Drug induced Due to other cause Severe or Morbid Obesity With alveolar hypoventilation Without alveolar hypoventilation Or: BMI is not significant Other (please specify) Unable to determine Use of terms such as suspected, likely, concern for, or probable (associated with a specific diagnosis that is being evaluated, monitored, or treated as if it exists) are acceptable and can be coded in the inpatient setting, when documented at the time of discharge. Thank you, Gabriela Echols [facility], CDIS Extension: [phone] Please use your independent medical judgment in providing your response. THIS QUERY IS PART OF THE PERMANENT MEDICAL RECORD
[2021-09-03 08:05] VITALS: BP 109/66; PULSE 97; RESP 18; TEMP 36.3; O2SAT 97
--- NOTE | 2021-09-03 08:36 | MHC.CM.PN ---
PATIENT LIVES WITH SPOUSE HAS CANE AND WALKER PLAN [facility] SP[facility]SE TO TRANSPORT.
--- NOTE | 2021-09-03 09:10 | P.DS_ITS ---
DS: Providers Provider Date of Service: 09/04/21 Date of admission: 09/01/21 07:49 Primary care physician: Negra Herrera MD DS: Diagnosis Discharge Diagnosis (1) Status post total knee replacement, left: Status: Acute DS: Summary Hospital Course Hospital Course: The patient underwent a successful left total knee arthroplasty, they were transferred to PACU and then to the floor to recover. During their stay, their vitals were stable, afebrile at 97.4. Labs were unremarkable, H/H 9.1/28.1. POD 1 they were started on Aspirin 325mg po bid for DVT ppx, they also received Physical Therapy services twice a day. Prior to discharge, their dressing was changed, incision clean dry and intact, new Aquacel dressing applied and the plan was to be discharged home with VNA services. Time Spent with Patient Time attestation: Total time spent providing and/or coordinating discharge services: Discharge coordination time: Less than 30 minutes Quality: Safe Use of Opioids Does Pt have an Active Cancer Diagnosis on the Problem List?: No Quality: Stroke Does the patient have a stroke diagnosis?: No Physical Exam Vital Signs: Vital Signs: Last Vital Signs Temp 97.4 F 09/03/21 08:05 Pulse 97 09/03/21 08:05 Resp 18 09/03/21 08:05 BP 109/66 09/03/21 08:05 Pulse Ox 97 09/03/21 08:05 BMI result Body Mass Index 40.6 Const: General: cooperative, healthy appearing and no acute distress Resp: Effort & Inspection: normal respiratory effort and able to speak in complete sentences Cardio: Rate: regular rate Peripheral pulses: Peripheral pulses 2+ throughout GI: Palpation (GI): Soft to palpation Skin: Lesions: no lesions Rashes: no rashes Extrem: Other: Left knee Teresa intact No erythema or drainage. Patient is ambulating with a walker. Sensation intact. New Aquacel dressing applied. NVI DS: Data Data Completed and Pending Pending studies at discharge: Pending at discharge 09/01/21 11:59 Surgical [PTH] Routine Labs on day of discharge: Laboratory Results - last 24 hr 09/03/21 09/03/21 06:35 06:40 WBC 9.7 RBC 3.28 L Hgb 9.1 L Hct 28.1 L MCV 85.7 MCH 27.7 MCHC 32.4 RDW 14.6 Plt Count 141 L MPV 11.8 Immature Gran % (Auto) 0.4 Neut % (Auto) 72.2 Lymph % (Auto) 17.3 L Clinch % (Auto) 8.6 Eos % (Auto) 1.2 Baso % (Auto) 0.3 Lymph # (Auto) 1.7 Clinch # (Auto) 0.8 Eos # (Auto) 0.1 Baso # (Auto) 0.0 Abs Immat Gran (auto) 0.04 H Absolute Neuts (auto) 7.0 Absolute Nucleated RBC 0.000 Nucleated RBC % (auto) 0.0 Sodium 136 Potassium 3.7 Chloride 102 Carbon Dioxide 27 Anion Gap 11 L BUN 9 Creatinine 0.72 Estim Creat Clear Calc 110.6 Estimated GFR > 60 Fasting Glucose 115 H Calcium 8.1 L Discharge Plan Discharge Patient Disposition: Home Health Service Discharge Diagnosis: s/p LTKA Referrals: Astrid PYLE [Outside] - 1 Week Sherry Amador PA-C [Physician Systems Development Manager] - 09/17/21 1:30 am Discharge Medications: New celecoxib 200 mg Capsule 200 mg PO BID 30 Days Qty: 60 0RF acetaminophen 325 mg Tablet 650 mg PO Q6H PRN (Reason: Pain, Mild (Pain Scale 1-3)) 30 Days Qty: 240 0RF aspirin 325 mg Tablet 325 mg PO BID 42 Days Qty: 84 0RF docusate sodium 100 mg Capsule 100 mg PO BID 30 Days Qty: 60 0RF oxycodone 5 mg Tablet 10 mg PO Q4H PRN (Reason: Pain, Moderate (Pain Scale 4-6) 7 Days Qty: 42 0RF Continued omeprazole 20 mg capsule,delayed release(DR/EC) 20 mg PO DAILY 90 Days Qty: 90 2RF Excedrin Migraine 250-250-65 mg tablet 1 tab PO Q4-6H PRN (Reason: Migraine Headache) 0RF Discontinued acetaminophen [Tylenol] 325 mg tablet 325 mg PO QID PRN (Reason: Pain) 0RF Discharge Orders: Discharge Order (Routine); Ordered 09/03/21 Ordered By: Ann Ordoñez Diet: regular diet Activity on Discharge: Use cane or walker Stand Alone Forms: Patient Portal Discharge page Care Plan Goals: restor fxn to left knee Health Concerns: none Plan of Treatment: Physical Therapy for ROM 0-120, quad strength, gait training. Use walker for ambulation Limit stair climbing, No shower, No tub bath, No driving Continue anticoagulant Keep Aquacel dressing clean, dry and intact. Follow up with orthopedics in 2 weeks Assessment: stable for d/c Discharge Date/Time: 09/03/21 12:00
--- NOTE | 2021-09-03 09:23 | MHC.CM.PN ---
DC HOME TODAY - NEW [facility] RN AWARE OF PLAN.
[2021-09-03] MEDS: Docusate Sodium 100 MG CAPSULE PO (10:27)
[2021-09-03] MEDS: Aspirin 325 MG TABLET PO (10:27)
[2021-09-03] MEDS: Celecoxib 200 MG CAPSULE PO (10:27)
[2021-09-03] MEDS: oxyCODONE HCl ER 10 MG TAB.ER.12H 20 MG PO (10:28)
--- NOTE | 2021-09-03 10:37 | P.F2F_ITS ---
Service Date Service Date: 09/03/21 Encounter Date of encounter: 09/03/21 Reasons for Services Signs and symptoms assessed: Pt. is considered homebound due to recent surgery. Unable to drive, poor balance, poor gait mechanics. Reason for physical therapy: home safety and mobility, therapeutic exercises, restore joint function, gait/transfer training and ADL training Reason for occupational therapy: home safety and mobility, therapeutic exercises, restore joint function, gait/transfer training and ADL training Homebound: Leaving the home is medically contraindicated at this time without the asist of a device and/or another person due th the listed conditions above and below. Reason homebound: unsteady gait / fall risk, leg weakness, pain with ambulation, pain with transfers, poor balance / fall risk and unable to drive Homebound supporting statement: Pt. is considered homebound due to recent surgery. Unable to drive, poor balance, poor gait mechanics. Certification: Based on the above findings, I certify that this patient is confined to the home and needs intermittent care home care, physical therapy and/or speech therapy, or continues to need occupational therapy. The patient is under my care, and I have initiated the establishment of the plan of care. The patient will be followed by a physician who will periodically review the plan of care.
--- NOTE | 2021-09-08 10:26 | P.OP_ITS ---
Operative Note Operative Note Date of Service: 09/01/21 Narrative: Date of Service: 09/01/21 Pre-op diagnosis: Left knee OA Post-op diagnosis: same Procedure: Left TKA Implants: [place] Triathalon cruciate retaining press fit 05/21/11 Surgeon: Elder Whitaker MD Anesthesia: regional and spinal Was an Transit Clerk used for this Procedure?: Yes Transit Clerk: Sherry Amador Estimated blood loss (mL): 150 IV fluids (mL): 1,000 Pathology: other Condition: stable Disposition: PACU Procedure in detail: The patient was brought to the operating room and prepped and draped in standard sterile fashion. A time-out was called to identify proper site proper procedure proper surgeon and IV antibiotics were administered. 1 g of IV tranexamic acid was administered. I began by making a midline incision to the retinaculum and performed a medial parapatellar arthrotomy. The patella was translated laterally and the knee was flexed up. The medial compartment was eburnated. I performed a small medial peel and resected the infrapatellar fat pad. Harper's line was then used to drill my intramedullary femoral guide and my distal femur cut of 12 mm was made in 5 degrees of valgus while protecting the soft tissues. I then measured a # 2 femur and placed my cutting guide and made my anterior posterior and chamfer cuts protecting the soft tissues at all times. Once I was satisfied with my cuts I turned my attention to the tibia. I removed the meniscus medially and laterally and , using an external cutting guide, in line with the tibial crest and the third ray, I made my distal tibial cut in 3 deg slope of while protecting the PCL the posterior soft tissues at all times. An extension block was used to confirm appropriate amount of bony resection. I then sized a #3 tibia and once I was satisfied that there was complete tibial coverage I placed my trial and with the trial femur in place took the knee through range of motion. I was satisfied with the extension and flexion as well as the stability at 0, 30 and 90 degrees. I then turned my attention to the patella where I removed 1 cm from the undersurface of the patella and then trialed a 29a patellar button. Again the knee was taken through range of motion I was satisfied with the tracking. I then returned to the femur and drilled my femoral lug holes and prepared the tibia. A femoral bone plug was placed and the knee was irrigated copiously. I then press fit the patella, tibia and femur in standard fashion. I trialed different inserts until I selected a #12 insert. The final insert was placed and a 3 minutes iodine soak with local TXA was performed. A Werewolf cautery wand was used to maintain hemostasis over the capsule and meniscal beds, the gutters and peripatellar soft tissues. The knee was then closed with a running Quill suture, a 3 0 Vicryl and satnam on the skin. Patient was then placed in sterile dressing and brought to recovery room in stable condition there were no known complications.
== END 2021-09-03 12:00 | disposition home health service (06) | DRG 302 ==
LOC: HO.SSSA 07:55 → HO.S3 16:03
PROVIDERS: Nurse Practitioner; Physician Assistant; Admitting Provider Orthopaedic Surgery; PCP Internal Medicine; Visit Provider Orthopaedic Surgery
PROC: 0SRD0JA Replacement of Left Knee Joint with Synthetic Substitute, Uncemented, Open Approach (ICD-10-PCS; CPT 27447; principal; 2021-09-01 10:00)
DX: M17.12 Unilateral primary osteoarthritis, left knee (principal); E66.01 Morbid (severe) obesity due to excess calories; F32.A Depression, unspecified; F41.9 Anxiety disorder, unspecified; Z86.16 Personal history of COVID-19; M79.7 Fibromyalgia; Z20.822 Contact with and (suspected) exposure to COVID-19; Z87.01 Personal history of pneumonia (recurrent); Z87.891 Personal history of nicotine dependence; Z88.6 Allergy status to analgesic agent; Z79.899 Other long term (current) drug therapy
CPT/HCPCS: 36415; 73560; 80048; 85014; 85018; 85025; 86850; 86900; 86901; 87635; 87640; 87641; 88305; 88311; 97110; 97116; 97162; 97530; C1776; J0690; J1170; J2250; J2550; J2795; J3010

== ENCOUNTER → 2021-09-08 07:37 | Outpatient (BNVA) | payer OTHER, SELFPAY | PROVIDERS: PCP Internal Medicine; Visit Provider Orthopaedic Surgery | DX: Z13.89 Encounter for screening for other disorder (principal) ==

== ENCOUNTER → 2021-09-17 13:20 | Outpatient (BNVA) | payer OTHER, SELFPAY | PROVIDERS: PCP Internal Medicine; Visit Provider Physician Assistant | DX: Z13.89 Encounter for screening for other disorder (principal) ==

== ENCOUNTER 2021-11-16 08:04 | Outpatient (REF) | payer OTHER, SELFPAY ==
--- NOTE | ~2021-11-16 | XR_ITS ---
EXAMINATION: XR KNEE, LEFT XR KNEE AP STANDING CLINICAL INFORMATION: Pain. COMPARISON: Radiographs dated 09/01/2021. TECHNIQUE: Lateral and axial views of the left knee were obtained. AP bilateral standing view of the knees was obtained. FINDINGS: Prosthetic components of the bilateral total knee arthroplasties are appropriately aligned without periprosthetic fracture or abnormal lucency. No component migration. A small left knee joint effusion is suspected. XR/XR knee standing BI IMPRESSION: 1. Appropriate alignment of the bilateral total knee arthroplasties. 2. A small left knee joint effusion is suspected.
--- NOTE | ~2021-11-16 | XR_ITS ---
EXAMINATION: XR KNEE, LEFT XR KNEE AP STANDING CLINICAL INFORMATION: Pain. COMPARISON: Radiographs dated 09/01/2021. TECHNIQUE: Lateral and axial views of the left knee were obtained. AP bilateral standing view of the knees was obtained. FINDINGS: Prosthetic components of the bilateral total knee arthroplasties are appropriately aligned without periprosthetic fracture or abnormal lucency. No component migration. A small left knee joint effusion is suspected. XR/XR knee LT 2V IMPRESSION: 1. Appropriate alignment of the bilateral total knee arthroplasties. 2. A small left knee joint effusion is suspected.
== END 2021-11-16 08:05 | disposition home or self-care (01) ==
LOC: HO.HOSX 08:04
PROVIDERS: Visit Provider Orthopaedic Surgery
DX: M25.562 Pain in left knee (principal)
CPT/HCPCS: 73560; 73565

== ENCOUNTER 2021-11-16 17:00 | Outpatient (RCR) | payer OTHER, SELFPAY ==
--- NOTE | 2021-09-17 14:53 | MHC.PT.EP ---
[facility] [place] Office [place] Office [place] Office [address] Jennifer Velazquez [address] [phone] F: [phone] F: [phone] F: [phone] F: [phone] Physical Therapy Plan of Care Date of Evaluation: Date of Surgery: 09/01/21 Diagnosis: S/P LEFT TKA Assessment: Pt IS A 56 YO FEMALE REF TO PT S/P LEFT TKA 09/01/21- SHE IS CURRENTLY AMB W A W/WALKER AND HAS BEEN OOW SINCE HER SURGERY- SHE WORKS FULL-TIME A [employer] FOR [employer] (IN AN OFF-SITE OFFICE). SHE RESIDES W HER SPOUSE IN A 1 LEVEL HOME AND IS CURRENTLY AMB W A W/WALKER . OBJECTIVE FINDINGS: LIMITED AROM (roxanne exten)Lt KNEE, TIGHT PSOAS MM SONY AND DECR ANKLE DF SONY; DECR STRENGTH IN PROX / LUMBOPELVIC AND Lt LE, POST-OP PAIN IN LEFT KNEE ,AND HEALING ANT Lt KNEE INCISION. FUNCTIONALLY, Pt HAS COMPENSATORY GAIT, MODIFIED STAIR MGMT, DECR STANDING, SLEEPING, AND DECR YURI TO ADLs. Pt IS A VERY GOOD PT CANDIDATE TO GUIDE HER IN HER POST-OP TKA COURSE AND TO ADDRESS THE ABOVE FINDINGS, PAIN MGMT, DEV A PROGRESSIVE HEP AND SELF- SX MGMT STRATEGIES, AND MAXIMIZING FUNCTIONAL INDEPENDENCE. Frequency and Duration: The patient will be seen 2 x WK x 8 WKS Short Term Goals: Pt DEMON PROPER QUAD SET IN 1 WK Pt'S KNEE PAIN DECREASED TO 2-3/10 IN 2 WKS Pt DEMON WFL AROM HIP EXT AND ANKLE DF/PF AND AROM LEFT KNEE 0* TO 120* IN 4 WKS Pt DEMO IMPROVED GAIT MECH W LEAST RESTRICTIVE AD ON LEVEL GROUND AND STAIRS IN 2 WKS Pt INDEP W SCAR MOBILITY LEFT ANT KNEE IN 3 WKS Alf Goals: Pt INDEP W HEP PROGRESSION AND SELF-SX MGMT STRATEGIES IN 8 WKS Pt RESUME REG ADLs EVIDENT W IMPROVED LEFI SCORE BY 8-10 POINTS (AT EVAL 47/80) IN 8 WKS Pt INCR LE STRENGTH BY 1 GRADE IN 8 WKS Treatment Plan: Modalities to reduce pain, spasms and effusion. Manual therapy to restore motion and function. Therapeutic exercise to improve strength and flexibility. Neuromuscular re-education for posture and balance. Therapeutic activities to return to functional activities of daily living. Electronically signed by: Gayathri GilmorePT Please sign and return to therapist. Thank you for your referral.
== END 2022-03-15 12:38 | disposition home or self-care (01) ==
LOC: HO.PT 17:00
PROVIDERS: Visit Provider Physician Assistant
DX: Z96.652 Presence of left artificial knee joint (principal)
CPT/HCPCS: 97110; 97116; 97140; 97162; 97530

== ENCOUNTER 2022-02-13 10:07 | Outpatient (REF) | payer OTHER, SELFPAY ==
--- NOTE | ~2022-02-13 | MM_ITS ---
EXAMINATION: MM SCREENING DIGITAL BREAST TOMOSYNTHESIS, BILATERAL CLINICAL INFORMATION: Screening. Asymptomatic. The lifetime risk of breast cancer based on the Tyrer-Cuzick Model is 5%. COMPARISON: Mammography: 02/07/2021, 10/13/2019, 09/23/2018 TECHNIQUE: Digital breast tomosynthesis is performed in both the craniocaudal and mediolateral oblique views along with computer-aided detection (CAD). Synthesized 2D images are generated from the tomosynthesis. FINDINGS: The breasts are almost entirely fatty (ACR BI-RADS breast composition Category a). There are no significant masses, abnormal calcifications, or other abnormalities. Background stromal markings are normal. No developing density or architectural abnormality. The axilla and skin contours are unremarkable. MM/MM tomosynthesis screening BI IMPRESSION: No mammographic evidence of malignancy. ASSESSMENT: BI-RADS 1: Negative RECOMMENDATION: Routine annual mammography screening. This patient's information was entered into a reminder system with a target due date for their next mammogram.
== END 2022-02-13 10:08 | disposition home or self-care (01) ==
LOC: HO.MAMMO 10:07
PROVIDERS: PCP Internal Medicine; Visit Provider Internal Medicine
DX: Z12.31 Encounter for screening mammogram for malignant neoplasm of breast (principal)
CPT/HCPCS: 77063; 77067

== ENCOUNTER 2022-04-23 08:17 | Emergency (ER) | payer OTHER, SELFPAY ==
--- NOTE | ~2022-04-23 | CT_ITS ---
EXAMINATION: CT ANGIOGRAM OF THE CHEST WITH AND WITHOUT CONTRAST (CT PULMONARY ANGIOGRAM FOR PE) CLINICAL INFORMATION: Reason for Exam r/o PE elevated d-dimer COMPARISON: Radiograph from today. TECHNIQUE: Prior to contrast administration, noncontrast localization images were obtained. Subsequently, multidetector volumetric imaging was performed from the thoracic inlet to below the diaphragms following the administration of 65 mL Omnipaque 350 intravenous contrast. No contrast reaction reported Sagittal, coronal, and MIP oblique sagittal reformatted images were obtained on the CT workstation, uploaded to PACS, and reviewed. This CT examination was performed using dose optimization techniques as appropriate, variously including the following: *Automated exposure control *Adjustment of mA and/or kV according to patient size (this includes techniques or standardized protocols for targeted exams where dose is matched to indication/reason for exam; i.e. extremities or head) *Use of iterative reconstruction technique Total exam dose-length product 468 mGy-cm FINDINGS: QUALITY OF STUDY/CONTRAST BOLUS: Satisfactory. PULMONARY ARTERIES: No central or segmental pulmonary emboli. THORACIC AORTA: No aneurysm or dissection. LUNG: The central airways are patent. Dependent atelectasis on the right. No dense consolidation. No pulmonary nodule identified. PLEURA: No pleural effusion or pneumothorax. MEDIASTINUM: Normal heart size. No pericardial effusion. No hilar or mediastinal lymphadenopathy. No evidence of septal bowing or right heart strain. CORONARY ARTERY CALCIFICATION: None visualized on this study. CHEST WALL/AXILLA: No axillary or internal mammary lymphadenopathy. OSSEOUS STRUCTURES: No acute or suspicious osseous abnormality. UPPER ABDOMEN: No acute abnormalities. Cholecystectomy. No reflux of contrast into the hepatic veins to suggest elevated right heart pressures. CT/CT angio chest PE protocol IMPRESSION: No pulmonary embolism or other acute intrathoracic abnormality. VTE: negative
--- NOTE | ~2022-04-23 | XR_ITS ---
EXAMINATION: XR CHEST CLINICAL INFORMATION: Short of breath COMPARISON: 04/21/2020 TECHNIQUE: 2 views of the chest were obtained. FINDINGS: The lungs are well expanded. There is no focal consolidation, edema, or effusion. No pneumothorax. The cardiomediastinal silhouette is within normal limits. No acute osseous abnormality. Mild degenerative changes throughout the spine. XR/XR chest 2V IMPRESSION: Clear lungs.
[2022-04-23 08:19] VITALS: BP 123/61; PULSE 87; RESP 20; TEMP 36.6; O2SAT 98; BMI 38.6
[2022-04-23 08:39] LABS: MANUAL DIFF FLAG NO
[2022-04-23 08:41] LABS: Basophils Percent Auto 0.6 % (0-2); Eosinophils Absolute Auto 0.2 X10*3/uL (0.0-0.4); Eosinophils Percent Auto 2.8 % (0-4); Hematocrit 40.5 % (37.0-47.0); Hemoglobin 13.1 g/dl (12.0-16.0); Imm Gran Abs Auto 0.02 X10*3/uL (0.00-0.03); Imm Gran Pct Auto 0.3 % (0.0-0.4); Lymphocytes Absolute Auto 2.4 X10*3/uL (1.2-4.9); Lymphocytes Percent Auto 34.3 % (20-40); Mean Corpuscular HGB Conc 32.3 g/dl (31.0-35.0); Mean Corpuscular Hemoglobin 27.5 pg (27.0-33.0); Mean Corpuscular Volume 85.1 fL (80.0-98.0); Mean Platelet Volume 11.2 fL (9.4-12.3); Monocytes Absolute Auto 0.5 X10*3/uL (0.1-1.2); Monocytes Percent Auto 7.5 % (2-11); Neutrophils Absolute Auto 3.8 x10*3/uL (2.0-8.3); Neutrophils Percent Auto 54.5 % (45-73); Platelet Count 283 X10*3/uL (160-400); Red Blood Count 4.76 X10*6/uL (4.20-5.50); Red Cell Distribution Width 14.7 % (11.0-16.0); White Blood Count 6.9 X10*3/uL (4.8-10.8)
--- NOTE | 2022-04-23 08:46 | ED_ITS ---
HPI - SOB/Dyspnea General Chief Complaint: Dyspnea Stated Complaint: SOB Time Seen by Provider: 04/23/22 08:36 Source: patient Mode of arrival: ambulatory Limitations: no limitations History of Present Illness HPI Narrative: This is 57 years old of female presented to the emergency department complaining shortness of breath she was diagnosed last week we could withcovid, she went back today to work the 1st time he is complaining of shortness of breath therefore she came here for eval. Denies any fever chills vomiting and diarrhea MD elicited complaint: shortness of breath Pertinent past history: other (covid 1 week ago) Onset (ago): week(s) (1) Timing: constant Severity: moderate Exacerbating factors: nothing Relieving factors: nothing Related Data Home Medications Medication Instructions Recorded Confirmed [id number] 250 1 tab PO Q4-6H PRN Migraine 07/20/21 08/26/21 mg-250 mg-65 mg tablet (Excedrin Headache Migraine) Previous Rx's Medication Instructions Recorded omeprazole 20 mg capsule,delayed 20 mg PO DAILY 90 days #90 caps 05/19/21 release aspirin 325 mg tablet 325 mg PO BID 42 days #84 tabs 09/03/21 celecoxib 200 mg capsule 200 mg PO BID 30 days #60 caps 09/03/21 oxycodone 5 mg tablet 5 mg PO Q4H PRN Pain, Moderate 10/14/21 (Pain Scale 4-6 7 days #42 tabs docusate sodium 100 mg capsule 100 mg PO BID #60 caps 11/02/21 acetaminophen 325 mg tablet 650 mg PO Q6H PRN for pain #240 12/17/21 tabs Allergies Allergy/AdvReac Type Severity Reaction Status Date / Time ibuprofen [IBUPROFEN] Allergy Unknown GI UPSET Verified 11/16/21 11:24 Review of Systems Constitutional: Constitutional: Reports no additional constitutional complaints Eyes: Eyes: Reports no additional eye complaints Respiratory: Respiratory: Reports no additional respiratory complaints PMFSH Past Medical History Attestation statement: The following information was validated with the patient. Medical History Anxiety and depression COVID-19 Fibromyalgia GERD (gastroesophageal reflux disease) History of anemia History of vitamin D deficiency Hx of low back pain IBS (irritable bowel syndrome) Migraine Obesity (BMI 30-39.9) Osteoarthritis Peripheral vascular disease Pneumonia Psoriasis Recurrent major depression Surgical History History of arthroscopy of both knees History of bunionectomy of both great toes History of colonoscopy History of foot surgery History of total right knee replacement (TKR) History of tubal ligation S/P cholecystectomy S/P right unicompartmental knee replacement Family History Family History Father Diabetes Hypertension Mother No problems noted. Social History Social History Household Members: Spouse Housing: House Are you a primary animal care technician to a significant other at home: No Do you presently have visiting nurse or other home services: No Alcohol intake: never Patient Tobacco Use Status: Former Tobacco user Quit Date: 20 yrs ago Tobacco use type: Cigarette Years Smoked: 2009 quit Smoked in Last 30 Days: No e-Cigarette/Vaping Use: Never Used Second Hand Smoke Exposure: No Use of substances other than those prescribed or required for medical reasons: No Advance Directives: Yes Advance Directives Information Provided: Yes Advance Directives on File: No Patient : No service: No Current occupational status: employed Cognitive needs: No Hearing needs: No Vision needs: Yes Physical Exam Vital Signs: Vital Signs: Last Vital Signs Temp 97.6 F 04/23/22 08:55 Pulse 91 04/23/22 08:55 Resp 16 04/23/22 08:55 BP 141/46 H 04/23/22 08:55 Pulse Ox 95 04/23/22 08:55 O2 Del Method 04/23/22 08:55 BMI result Body Mass Index 38.6 Const: General: cooperative, comfortable, no acute distress, well developed and alert Nutritional Appearance: well nourished Orientation/consciousness: oriented to person, oriented to place, oriented to time and patient oriented x3 Limitations: no limitations HEENT: Head: Yes normal to inspection General nose exam: Normal external nose present Face and sinus: Yes normal facial exam Mouth: Normal oral and palatal mucosa present Neck: Neck: Yes normal visual inspection and Yes full ROM Thyroid: Thyroid normal Chest: Chest palpation & inspection: normal inspection of the chest Resp: Effort & Inspection: normal respiratory effort Auscultation: clear to auscultation bilaterally Percussion: percussion normal Cardio: Jugular venous distension: no JVD Rate: regular rate Rhythm: regular rhythm GI: Inspection: Yes normal to inspection Palpation (GI): Soft to palpation, not firm and nontender Skin: General skin exam: no rashes or lesions noted and elasticity normal Lesions: no lesions Rashes: no rashes Neuro: General: oriented to person, oriented to place, oriented to time and patient oriented x3 Course Reevaluation(s) Reevaluation #1: feels better w/u negative will d/c Time: 11:29 Medications Administered Discontinued Medications Generic Name Dose Route Start Last Admin Trade Name Freq PRN Reason Stop Dose Admin Iohexol 65 ml 04/23/22 10:42 04/23/22 10:43 Iohexol 350 Mg/Ml 100 Ml Infus..Btl IV 04/23/22 10:43 65 ml ONCE ONE Administration Medical Decision Making Medical Decision Making [facility] Narrative: Patient presented with shortness of breath she is post COVID a week ago will get chest x-ray D-dimer Differential Diagnosis Differential Diagnoses: The differential diagnosis associated with the presentation includes Differential diagnoses post COVID pneumonia, pulmonary emboli Admission/Observation Consideration of admission/observation: Escalation of care including admission/observation considered Lab Data [facility] Lab Attestation statement: I reviewed the patient's lab results. 04/23/22 08:35 04/23/22 08:35 Labs: Lab Results 04/23/22 04/23/22 04/23/22 Range/Units 08:35 08:35 09:53 WBC 6.9 (4.8-10.8) X10*3/uL RBC 4.76 D (4.20-5.50) X10*6/uL Hgb 13.1 D (12.0-16.0) g/dl Hct 40.5 D (37.0-47.0) % MCV 85.1 (80.0-98.0) fL MCH 27.5 (27.0-33.0) pg MCHC 32.3 (31.0-35.0) g/dl RDW 14.7 (11.0-16.0) % Plt Count 283 D (160-400) X10*3/uL MPV 11.2 (9.4-12.3) fL Immature Gran % (Auto) 0.3 (0.0-0.4) % Neut % (Auto) 54.5 (45-73) % Lymph % (Auto) 34.3 (20-40) % [place] % (Auto) 7.5 (2-11) % Eos % (Auto) 2.8 (0-4) % Baso % (Auto) 0.6 (0-2) % Lymph # (Auto) 2.4 (1.2-4.9) X10*3/uL [place] # (Auto) 0.5 (0.1-1.2) X10*3/uL Eos # (Auto) 0.2 (0.0-0.4) X10*3/uL Baso # (Auto) 0.0 (0.0-0.2) X10*3/uL Abs Immat Gran (auto) 0.02 (0.00-0.03) X10*3/uL Absolute Neuts (auto) 3.8 (2.0-8.3) x10*3/uL Absolute Nucleated RBC 0.000 (0.0-0.012) X10*3/uL Nucleated RBC % (auto) 0.0 (0.0-0.2) /100WBC D-Dimer High Sensitivty 646 NG/ML Sodium 141 (135-145) mmol/L Potassium 4.6 D (3.3-5.1) mmol/L Chloride 107 (96-108) mmol/L Carbon Dioxide 23 (22-29) mmol/L Anion Gap 16 (12-20) BUN 17 H (9-16) mg/dL Creatinine 0.79 (0.5-1.4) mg/dL Estim Creat Clear Calc 96.9 Estimated GFR > 60 Random Glucose 99 (60-115) mg/dL Calcium 9.1 D (8.4-10.2) mg/dL Independent Interpretation I performed an independent interpretation of an: CT Scan Interpretation: I personally reviewed ct no PE Discharge Plan Discharge Clinical Impression: Dyspnea Prescriptions: No Action omeprazole 20 mg capsule,delayed release(DR/EC) 20 mg PO DAILY 90 Days Qty: 90 2RF oxycodone 5 mg tablet 5 mg PO Q4H PRN (Reason: Pain, Moderate (Pain Scale 4-6) 7 Days Qty: 42 0RF docusate sodium 100 mg capsule 100 mg PO BID Qty: 60 0RF acetaminophen 325 mg tablet 650 mg PO Q6H PRN (Reason: for pain) Qty: 240 0RF celecoxib 200 mg Capsule 200 mg PO BID 30 Days Qty: 60 0RF aspirin 325 mg Tablet 325 mg PO BID 42 Days Qty: 84 0RF Excedrin Migraine 250-250-65 mg tablet 1 tab PO Q4-6H PRN (Reason: Migraine Headache)
[2022-04-23 08:54] LABS: Anion Gap 16 (12-20); Blood Urea Nitrogen 17 mg/dL (9-16); Calcium 9.1 mg/dL (8.4-10.2); Carbon Dioxide 23 mmol/L (22-29); Chloride 107 mmol/L (96-108); Creatinine Clr Calc Pharmacy 96.9; Estimated Glomerular Filt Rate > 60; Glucose Random 99 mg/dL (60-115); Potassium 4.6 mmol/L (3.3-5.1); Sodium 141 mmol/L (135-145)
[2022-04-23 08:55] VITALS: BP 141/46; PULSE 91; RESP 16; TEMP 36.4; O2SAT 95
--- NOTE | 2022-04-23 09:28 | PC.NURSE ---
pt is a/.o x 4 no sob/terri noted speaks in full sentences. lungs - cta. heart sounds regular. abd soft and non-distended/tender. bx + X 4 quads. no edema noted. pt aware of plan of care.
[2022-04-23 10:09] LABS: D Dimer High Sensitivity 646 NG/ML
[2022-04-23] MEDS: iohexoL 350 MG/ML 100 ML INFUS..BTL 65 ML IV (10:43)
[2022-04-23 11:45] VITALS: BP 106/63; PULSE 72; RESP 18; TEMP 36.4; O2SAT 99
== END 2022-04-23 12:00 | disposition home or self-care (01) ==
PROVIDERS: Emergency Provider Emergency Medicine; PCP Internal Medicine
DX: R06.02 Shortness of breath (principal); Z87.891 Personal history of nicotine dependence; Z79.899 Other long term (current) drug therapy
CPT/HCPCS: 36415; 71046; 71275; 80048; 85025; 85379; 99284; Q9967

== ENCOUNTER 2022-07-28 06:02 | Outpatient (REF) | payer OTHER, SELFPAY ==
[2022-07-28 06:10] LABS: MANUAL DIFF FLAG NO
[2022-07-28 07:35] LABS: Basophils Percent Auto 0.6 % (0-2); Eosinophils Absolute Auto 0.1 X10*3/uL (0.0-0.4); Eosinophils Percent Auto 1.7 % (0-4); Hematocrit 39.5 % (37.0-47.0); Hemoglobin 12.5 g/dl (12.0-16.0); Imm Gran Abs Auto 0.01 X10*3/uL (0.00-0.03); Imm Gran Pct Auto 0.2 % (0.0-0.4); Lymphocytes Absolute Auto 2.5 X10*3/uL (1.2-4.9); Lymphocytes Percent Auto 39.4 % (20-40); Mean Corpuscular HGB Conc 31.6 g/dl (31.0-35.0); Mean Corpuscular Hemoglobin 27.6 pg (27.0-33.0); Mean Corpuscular Volume 87.2 fL (80.0-98.0); Monocytes Absolute Auto 0.5 X10*3/uL (0.1-1.2); Monocytes Percent Auto 8.3 % (2-11); Neutrophils Absolute Auto 3.2 x10*3/uL (2.0-8.3); Neutrophils Percent Auto 49.8 % (45-73); Platelet Count 252 X10*3/uL (160-400); Red Blood Count 4.53 X10*6/uL (4.20-5.50); Red Cell Distribution Width 14.4 % (11.0-16.0); White Blood Count 6.4 X10*3/uL (4.8-10.8)
[2022-07-28 08:01] LABS: Alanine Aminotransferase 17 U/L (0-31); Albumin Level 4.2 g/dL (3.5-5.0); Alkaline Phosphatase 115 U/L (39-117); Anion Gap 13 (12-20); Aspartate Amino Transferase 21 U/L (5-31); Bilirubin Total 0.6 mg/dL (0.0-1.0); Blood Urea Nitrogen 14 mg/dL (9-16); Calcium 8.7 mg/dL (8.4-10.2); Carbon Dioxide 26 mmol/L (22-29); Chloride 107 mmol/L (96-108); Cholesterol 212 mg/dL; Estimated Glomerular Filt Rate > 60; Glucose Random 88 mg/dL (60-115); HDL Cholesterol 62 mg/dL; LDL Cholesterol Calculated 126 mg/dl; Potassium 4.5 mmol/L (3.3-5.1); Sodium 141 mmol/L (135-145); Total Protein 7.2 g/dL (6.5-8.0); Triglycerides 121 mg/dL
[2022-07-28 08:23] LABS: Appearance Urine Cloudy; Color Urine Yellow; Glucose Urine UA Negative (Negative); Leukocyte Esterase Urine Negative (Negative); Nitrite Urine Negative (Negative); Specific Gravity - Urine 1.025 (1.005-1.025); Urine Blood Negative (Negative); Urine Ketones Negative (Negative); Urine Protein Trace mg/dL (Neg-Trace)
[2022-07-28 08:28] LABS: Bacteria Urine 2+ (None Seen); Hyaline Casts Urine 0-2 /LPF (0-2); RBC Urine 0-2 /HPF (0-2); Squamous Epithelial Cell Urine >20 /HPF (0-2); WBC Urine 0-5 /HPF (0-5)
[2022-07-28 08:37] LABS: Folate > 20.0 ng/mL (> or = 4.0); Free T4 (Free Thyroxine) 1.02 ng/dL (0.71-1.85); Thyroid Stimulating Hormone 1.56 uIU/mL (0.32-4.0); Vitamin B12 517 pg/mL (200-900)
[2022-07-28 08:58] LABS: Vitamin D 25-OH Total 13.2 ng/mL (>30)
== END 2022-07-28 06:03 | disposition home or self-care (01) ==
LOC: HO.LAB 06:02
PROVIDERS: PCP Internal Medicine; Visit Provider Internal Medicine
DX: E78.00 Pure hypercholesterolemia, unspecified (principal); E55.9 Vitamin D deficiency, unspecified
CPT/HCPCS: 36415; 80053; 80061; 81001; 82306; 82607; 82746; 84439; 84443; 85025

== ENCOUNTER 2023-03-12 10:06 | Outpatient (REF) | payer OTHER, SELFPAY | END 2023-03-12 10:07 | disposition home or self-care (01) | LOC: HO.MAMMO 10:06 | PROVIDERS: PCP Internal Medicine; Visit Provider Internal Medicine | DX: Z12.31 Encounter for screening mammogram for malignant neoplasm of breast (principal) | CPT/HCPCS: 77063; 77067 ==

== ENCOUNTER → 2023-03-12 10:15 | Outpatient (BNV) | payer OTHER, SELFPAY | PROVIDERS: PCP Internal Medicine; Visit Provider Radiology Diagnostic Radiology | DX: Z12.31 Encounter for screening mammogram for malignant neoplasm of breast (principal) | CPT/HCPCS: 77063; 77067 ==

== ENCOUNTER 2023-08-26 12:26 | Outpatient (AMB) | payer OTHER, SELFPAY ==
--- NOTE | 2023-08-26 12:39 | MHC.OFFVIS ---
Intake Visit Reasons: OV-Left TKA 09/01/21 NE Intake Note: Carolyn is a 58 year old female who presents today with complaints of bilateral knee pain and swelling. Hx of left TKA 09/01/21, Right TKA 04/03/2018 Her pain is felt on the lateral aspect of the left knee Allergies ibuprofen [IBUPROFEN] Allergy (Unknown, Verified 07/26/22 17:19) GI UPSET HPI HPI OV-Left TKA 09/01/21 NE: Details: Carolyn is now about 2 years status post left knee replacement. She describes lateral left thigh pain. She states that she is pain with hyperflexion of the knee and difficulty throughout her daily activities. She would like to be more active. [facility] Medical History (Updated 09/02/23 @ 18:42 by Elder Whitaker MD) Osteoarthritis of right knee History of anemia History of vitamin D deficiency Hx of low back pain IBS (irritable bowel syndrome) Anxiety and depression Psoriasis Fibromyalgia Migraine Recurrent major depression Peripheral vascular disease Osteoarthritis Obesity (BMI 30-39.9) GERD (gastroesophageal reflux disease) Primary osteoarthritis of left knee COVID-19 Pneumonia Surgical History History of colonoscopy History of total right knee replacement (TKR) History of bunionectomy of both great toes S/P right unicompartmental knee replacement History of foot surgery History of tubal ligation History of arthroscopy of both knees S/P cholecystectomy Family History (Updated 07/26/22 @ 17:38 by Negra Herrera MD) Father Diabetes Hypertension Mother Myocardial infarct Other CVA (cerebral vascular accident) Social History (Updated 07/26/22 @ 17:39 by Negra Herrera MD) Household Members: Spouse Housing: House Are you a primary healthcare advisory services manager to a significant other at home: No Do you presently have visiting nurse or other home services: No Alcohol intake: current Alcohol intake frequency: holidays/special occasions only Patient Tobacco Use Status: Former Tobacco user Quit Date: 20 yrs ago Tobacco use type: Cigarette Years Smoked: 2009 quit e-Cigarette/Vaping Use: Never Used Second Hand Smoke Exposure: No service: No Current occupational status: employed Cognitive needs: No Hearing needs: No Vision needs: Yes Physical Exam Extrem Other: Left total knee incision clean dry and intact. Stable arc of motion. She does have very tight iliotibial band on the left. Assessment & Plan Assessment & Plan (1) Status post total knee replacement, left: Comment: August 2021 Dr. Whitaker Code(s): Z96.652 - Presence of left artificial knee joint Category: Surgical Plan: Left knee in stable position with full range of motion. No obvious problems. (2) Iliotibial band syndrome: Code(s): M76.30 - Iliotibial band syndrome, unspecified leg Category: Medical Plan: Patient has iliotibial band syndrome. I recommend physical therapy which she does not feel like she can do at this point in time. I taught her some stretching exercises. If she does not improve she will contact me for formal therapy. Coding Level of Care Code Est Pt Level 4 (46727) Diagnoses Status post total knee replacement, left Z96.652 Iliotibial band syndrome M76.30
== END 2023-08-26 12:59 | disposition home or self-care (01) ==
PROVIDERS: PCP Internal Medicine; Visit Provider Orthopaedic Surgery
DX: M76.32 Iliotibial band syndrome, left leg (principal); Z96.653 Presence of artificial knee joint, bilateral
CPT/HCPCS: 99214

== ENCOUNTER → 2023-08-26 12:26 | Outpatient (BNVA) | payer OTHER, SELFPAY | PROVIDERS: PCP Internal Medicine; Visit Provider Orthopaedic Surgery ==

== ENCOUNTER 2023-12-12 17:01 | Outpatient (AMB) | payer OTHER, SELFPAY ==
[2023-12-12 17:04] VITALS: BP 128/80; PULSE 67; O2SAT 98; BMI 38.6
--- NOTE | 2023-12-12 17:04 | MHC.PC.OV ---
Vital Signs 12/12/23 17:04 Height 5 ft 5 in Weight 232 lb 4 oz BMI 38.6 BP 128/80 Blood Pressure Location Lt brachial Position Sitting Pulse 67 Pulse Source Pulse Oximeter Pulse Oximetry (%) 98 Oxygen Delivery Method Room Air Intake Visit Reasons: Physical Exam Ict Business Development Manager Required: No Accompanied by: Self / Same As Patient Allergies ibuprofen [IBUPROFEN] Allergy (Unknown, Verified 12/12/23 17:05) GI UPSET Medication List - Last Reconciled 12/12/23 by Negra Herrera MD acetaminophen 650 mg (2 x 325 mg) PO Q6H PRN cgtarju-kkfqcbruwqifs-syccrjyq 250-250-65 mg (Excedrin Migraine) 1 tab PO Q4-6H PRN omeprazole 20 mg PO DAILY 90 days semaglutide 0.25 mg (0.368 mL) subcut QWEEK 30 days sennosides-docusate sodium 8.6-50 mg (Senna Plus) 2 tab-caps (2 x 8.6-50 mg) PO BEDTIME Tobacco use date assessed: 12/12/23 Dental Screening Dental Screen Date: 12/12/23 Did you have a dental visit in the last 12 months?: Yes Did you have a dental problem in the last 6 months where you did not have access to dental care?: No Was dental information given to patient?: Patient has dentist HPI Physical Exam HPI Details 58-year-old obese female with GERD hypercholesterolemia coming in for physical exam last seen in 08/05/2022. Mammogram is up-to-date colonoscopy is up-to-date. Review of the notes has been following up with orthopedics 09/05/2023 had left total knee arthroplasty in 09/04/2021 right total knee arthroplasty March 2018 complaining of bilateral knee pain and swelling. Describes lateral left thigh pain diagnosis of iliotibial band and has advised physical therapy. dizzy occ [facility] Medical History (Updated 09/02/23 @ 18:42 by Elder Whitaker MD) Osteoarthritis of right knee History of anemia History of vitamin D deficiency Hx of low back pain IBS (irritable bowel syndrome) Anxiety and depression Psoriasis Fibromyalgia Migraine Recurrent major depression Peripheral vascular disease Osteoarthritis Obesity (BMI 30-39.9) GERD (gastroesophageal reflux disease) Primary osteoarthritis of left knee COVID-19 Pneumonia Surgical History History of colonoscopy History of total right knee replacement (TKR) History of bunionectomy of both great toes S/P right unicompartmental knee replacement History of foot surgery History of tubal ligation History of arthroscopy of both knees S/P cholecystectomy Family History (Updated 12/12/23 @ 17:42 by Negra Herrera MD) Father Diabetes Hypertension Mother Myocardial infarct Sister Myocardial infarct Other CVA (cerebral vascular accident) Social History (Updated 12/12/23 @ 17:43 by Negra Herrera MD) Household Members: Spouse Housing: House Are you a primary child care centre manager to a significant other at home: No Do you presently have visiting nurse or other home services: No Alcohol intake: current Alcohol intake frequency: holidays/special occasions only Comment: once q 3 months 1 glass Patient Tobacco Use Status: Former Tobacco user Tobacco use type: Cigarette Years Smoked: 2009 quit e-Cigarette/Vaping Use: Never Used Second Hand Smoke Exposure: No service: No Current occupational status: employed Cognitive needs: No Hearing needs: No Vision needs: Yes Questionnaire PHQ-9 Over the last 2 weeks, how often have you been bothered by any of the following problems? 1. Little interest or pleasure in doing things: not at all 2. Feeling down, depressed, or hopeless: not at all 3. Trouble falling or staying asleep, or sleeping too much: not at all 4. Feeling tired or having little energy: not at all 5. Poor appetite or overeating: not at all 6. Feeling bad about yourself - or that you are a failure or have let yourself or your family down: not at all 7. Trouble concentrating on things, such as reading the newspaper or watching television: not at all 8. Moving or speaking so slowly that other people could have noticed. Or the opposite - being so fidgety or restless that you have been moving around a lot more than usual: not at all 9. Thoughts that you would be better off or of hurting yourself in some way: not at all Total score: 0 Depression Screening Interpretation: Negative Depression Screening Done: Yes Source: Developed by Drs. Raffaele Bowman, Tomasa Rivas, John Gonzalez and colleagues, with an educational alexandra from [employer]. Thrive Questionnaire Date Thrive assessed: 12/12/23 I am a: Patient What is your living situation today?: I have a steady place to live Within the past 12 months, did the food you bought not last and you didn't have the money to get more?: Never true Within the past 12 months, did you worry whether your food would run out before you got money to buy more?: Never true Do you have trouble paying for medicines?: No Do you have trouble getting transportation to medical appointments?: No Do you have trouble paying your heating and electricity bill?: No Do you have trouble taking care of your child, family member or friend?: No Do you have trouble with day-to-day activities such as bathing, preparing meals, shopping, managing finances, etc.?: No Are you currently unemployed and looking for a job?: No Are you interested in more education?: No Please select the resources that you would like help with: None Currently or been in a relationship where the following occur: No concerns reported THRIVE Score: 0 AUDIT C Alcohol Use Questionnaire (AUDIT-C) 1. How often do you have a drink containing alcohol?: Monthly or less 2. How many drinks containing alcohol do you have on a typical day when you are drinking?: 1 or 2 3. How often do you have six or more drinks on one occasion?: Never Total Score: 1 HARRIS-7 AMB Questionnaire HARRIS-7 Date HARRIS - 7 assessed: 12/12/23 Feeling nervous, anxious, or on edge: 0 = Not at all Not being able to stop or control worryin = Not at all Worrying too much about different things: 0 = Not at all Trouble relaxin = Not at all Being so restless that it is hard to sit still: 0 = Not at all Becoming easily annoyed or irritable: 0 = Not at all Feeling afraid as if something awful might happen: 0 = Not at all Total HARRIS-7 score (0-4 normal; 5-9 mild; 10-14 moderate; 15-21 severe): 0 Source: Developed by Drs. Raffaele Bowman, Tomasa Rivas, John Gonzalez and colleagues, with an educational alexandra from [employer]. Review of Systems Const Denies poor appetite and Denies weakness Eyes Denies no additional complaints ENT Reports Normal hearing present, Denies dizziness, Denies nasal congestion, Denies tinnitus and Denies sore throat Card Denies chest pain, Denies syncope, Denies rapid heart rate and Denies dyspnea Resp Denies cough and Denies dyspnea GI Denies change in stool character, Reports constipation, Denies diarrhea, Denies nausea and Denies vomiting Denies urinary frequency, Denies difficulty voiding and Denies dysuria Neuro Reports Normal hearing present, Denies confusion, Denies dizziness, Denies syncope and Denies weakness Psych Denies confusion Physical exam (Primary Care) Vital Signs: Last Vital Signs Pulse 67 12/12/23 17:04 BP 128/80 12/12/23 17:04 Pulse Ox 98 12/12/23 17:04 Oxygen Delivery Method Room Air 12/12/23 17:04 BMI result Body Mass Index 38.6 Tobacco/Smoking Status: Tobacco use Status Tobacco use date assessed 12/12/23 12/12/23 17:11 Patient Tobacco Use Status Former Tobacco user 12/12/23 17:11 Tobacco use type Cigarette 12/12/23 17:11 e-Cigarette/Vaping Use Never Used 12/12/23 17:11 PHQ-9: PHQ-9 Score PHQ-9: Total score 0 12/12/23 17:11 Depression Screening Interpretation: Negative Thrive Assessment: Date of Thrive Assessment Date Thrive assessed 12/12/23 12/12/23 17:11 Currently or been in a relationship where the following occur: No concerns reported Const General: No confusion Orientation/consciousness: No confusion HENMT Head: Yes normocephalic Ears: external ears normal and TM's normal bilaterally Face and sinus: Yes normal facial exam Mouth: moist mucous membranes Throat: Yes tonsils normal Eyes Conjunctivae: conjunctivae normal Pupils: Equal, round and reactive pupils present and Pupil accommodation reflex normal Direct Ophthalmoscopy: normal light reflex Neck Neck: No lymphadenopathy Thyroid: Thyroid normal Chest Chest palpation & inspection: normal inspection of the chest Resp Effort & Inspection: normal respiratory effort and no audible wheezes Auscultation: clear to auscultation bilaterally, no crackles, no wheezes and lung sounds not diminished Cardio Rate: regular rate Rhythm: regular rhythm Peripheral pulses: radial pulses present and dorsalis pedis present GI Other: guaiac negative Palpation (GI): no masses Auscultation: normal bowel sounds and normoactive bowel sounds Skin General skin exam: no rashes or lesions noted Rashes: no rashes Neuro General: No confusion Cranial nerves: Yes Equal, round and reactive pupils present and Yes Normal hearing present Cognition (Neuro): normal cognition Gait exam (Neuro): Normal gait present Motor exam (neuro): 5/5 motor strength present throughout Deep tendon reflexes (DTR's): Right brachioradialis reflex intensity grade: 2+, Left brachioradialis reflex intensity grade: 2+, Right patellar reflex intensity grade: 2+ and Left patellar reflex intensity grade: 2+ Extrem General: No edema Assessment and Plan Assessment & Plan (1) Annual physical exam: Code(s): Z00.00 - Encounter for general adult medical examination without abnormal findings Plan: Patient is advised to eat healthy, keep well hydrated, keep active and have adequate sleep. (2) Obesity (BMI 30-39.9): Code(s): E66.9 - Obesity, unspecified Plan: Diet and exercise (3) GERD (gastroesophageal reflux disease): Comment: 2013 Code(s): K21.9 - Gastro-esophageal reflux disease without esophagitis Plan: Avoid the foods that causes that usually spicy foods, tomato products, juices, coffee, soda and foods that your sensitive to. After eating do not lie down, allow 3-4 hours before in lie down. And keep the head of bed above 30 degrees to avoid the acid from going up. (4) Hypercholesterolemia: Code(s): E78.00 - Pure hypercholesterolemia, unspecified Plan: Avoid fried foods, chicken skin, eggs, butter margarine, pastries and meat. Be it pork or beef they have a lot of cholesterol LDL goal of less than 130 and triglyceride of less than 150 (5) Iliotibial band syndrome: Code(s): M76.30 - Iliotibial band syndrome, unspecified leg Plan: Patient has seen ortho and has advised physical therapy Orders: Orders Complete Blood Count Auto Diff Today E78.00 - Pure hypercholesterolemia, unspecified Comprehensive Met. Panel Today E78.00 - Pure hypercholesterolemia, unspecified Lipid Panel Today E78.00 - Pure hypercholesterolemia, unspecified Thyroid Stimulating Hormone Today E78.00 - Pure hypercholesterolemia, unspecified UA CC w/rflx Micro + Cult Today E78.00 - Pure hypercholesterolemia, unspecified, R30.0 - Dysuria Free T4 (Free Thyroxine) Today E78.00 - Pure hypercholesterolemia, unspecified Hemoglobin A1c Today E78.00 - Pure hypercholesterolemia, unspecified Vitamin B12 and Folate Today E78.00 - Pure hypercholesterolemia, unspecified Vitamin D 25-OH Total Today E78.00 - Pure hypercholesterolemia, unspecified Medications: Refilled semaglutide for 4 weeks 0.25 mg (0.368 mL) subcut QWEEK 30 days 4 ea 1RF E66.9 - Obesity, unspecified Coding Level of Care Code Est Pt Prev Care 40-64y(65443) Diagnoses Annual physical exam Z00.00 Obesity (BMI 30-39.9) E66.9 GERD (gastroesophageal reflux disease) K21.9 Hypercholesterolemia E78.00 Iliotibial band syndrome M76.30
== END 2023-12-12 18:04 | disposition home or self-care (01) ==
PROVIDERS: PCP Internal Medicine; Visit Provider Internal Medicine
DX: Z00.00 Encounter for general adult medical examination without abnormal findings (principal); E66.9 Obesity, unspecified; Z68.38 Body mass index [BMI] 38.0-38.9, adult; K21.9 Gastro-esophageal reflux disease without esophagitis; E78.00 Pure hypercholesterolemia, unspecified; M76.30 Iliotibial band syndrome, unspecified leg
CPT/HCPCS: 99396

== ENCOUNTER 2023-12-13 07:46 | Outpatient (REF) | payer OTHER, SELFPAY ==
[2023-12-13 07:58] LABS: MANUAL DIFF FLAG NO
[2023-12-13 08:12] LABS: Basophils Percent Auto 0.6 % (0-2); Eosinophils Absolute Auto 0.2 X10*3/uL (0.0-0.4); Eosinophils Percent Auto 2.8 % (0-4); Hematocrit 40.1 % (37.0-47.0); Hemoglobin 13.1 g/dl (12.0-16.0); Imm Gran Abs Auto 0.01 X10*3/uL (0.00-0.03); Imm Gran Pct Auto 0.1 % (0.0-0.4); Lymphocytes Absolute Auto 2.5 X10*3/uL (1.2-4.9); Lymphocytes Percent Auto 35.5 % (20-40); Mean Corpuscular HGB Conc 32.7 g/dl (31.0-35.0); Mean Corpuscular Hemoglobin 28.9 pg (27.0-33.0); Mean Corpuscular Volume 88.3 fL (80.0-98.0); Mean Platelet Volume 12.1 fL (9.4-12.3); Monocytes Absolute Auto 0.6 X10*3/uL (0.1-1.2); Neutrophils Absolute Auto 3.7 x10*3/uL (2.0-8.3); Platelet Count 211 X10*3/uL (160-400); Red Blood Count 4.54 X10*6/uL (4.20-5.50); Red Cell Distribution Width 13.9 % (11.0-16.0); White Blood Count 7.1 X10*3/uL (4.8-10.8)
[2023-12-13 08:31] LABS: Estimated Average Glucose 111 mg/dL; Hemoglobin A1c % 5.5 % (<6.0)
[2023-12-13 08:46] LABS: Alanine Aminotransferase 19 U/L (0-31); Albumin Level 4.1 g/dL (3.5-5.0); Alkaline Phosphatase 96 U/L (39-117); Anion Gap 16 (12-20); Aspartate Amino Transferase 14 U/L (5-31); Bilirubin Total 0.3 mg/dL (0.0-1.0); Blood Urea Nitrogen 18 mg/dL (9-16); Calcium 9.2 mg/dL (8.4-10.2); Carbon Dioxide 21 mmol/L (22-29); Chloride 108 mmol/L (96-108); Cholesterol 203 mg/dL (<200); Estimated Glomerular Filt Rate > 60; Glucose Random 101 mg/dL (60-115); HDL Cholesterol 65 mg/dL (>40); LDL Cholesterol Calculated 109 mg/dL (<100); Potassium 4.1 mmol/L (3.3-5.1); Sodium 141 mmol/L (135-145); Total Protein 7.8 g/dL (6.5-8.0); Triglycerides 145 mg/dL (<150)
[2023-12-13 08:50] LABS: Appearance Urine Clear; Color Urine Yellow; Glucose Urine UA Negative (Negative); Leukocyte Esterase Urine Negative (Negative); Nitrite Urine Negative (Negative); PH 5.5 (5.0-9.0); Specific Gravity - Urine 1.025 (1.005-1.025); Urine Blood Negative (Negative); Urine Ketones Negative (Negative); Urine Protein Negative (Neg-Trace)
[2023-12-13 09:02] LABS: Free T4 (Free Thyroxine) 0.92 ng/dL (0.71-1.85); Thyroid Stimulating Hormone 1.55 uIU/mL (0.32-4.0); Vitamin D 25-OH Total 15.5 ng/mL (>30)
[2023-12-13 09:15] LABS: Folate 4.5 ng/mL (> or = 4.0); Vitamin B12 357 pg/mL (200-900)
== END 2023-12-13 07:47 | disposition home or self-care (01) ==
LOC: HO.LAB 07:46
PROVIDERS: PCP Internal Medicine; Visit Provider Internal Medicine
DX: E78.00 Pure hypercholesterolemia, unspecified (principal); R30.0 Dysuria; Z13.1 Encounter for screening for diabetes mellitus
CPT/HCPCS: 36415; 80053; 80061; 81003; 82306; 82607; 82746; 83036; 84439; 84443; 85025

== ENCOUNTER 2024-03-07 15:21 | Outpatient (AMB) | payer OTHER, SELFPAY ==
--- NOTE | 2024-03-07 15:38 | MHC.PC.OV ---
Vital Signs 03/07/24 15:39 Height 5 ft 5 in Weight 241 lb 0.6 oz BMI 40.1 BP 114/70 Blood Pressure Location Lt brachial Position Sitting Pulse 96 Pulse Source Pulse Oximeter Pulse Oximetry (%) 96 Oxygen Delivery Method Room Air Intake Visit Reasons: obesity Allergies ibuprofen [IBUPROFEN] Allergy (Unknown, Verified 12/12/23 17:05) GI UPSET Medication List - Last Reconciled 03/07/24 by June Guillermo PA-C acetaminophen 650 mg (2 x 325 mg) PO Q6H PRN ihjqwad-xrqmuquapllwu-ezrogwty 250-250-65 mg (Excedrin Migraine) 1 tab PO Q4-6H PRN liraglutide (weight loss) (Saxenda) 3 mg (0.5 mL) subcut DAILY 4 weeks omeprazole 20 mg PO DAILY 90 days sennosides-docusate sodium 8.6-50 mg (Senna Plus) 2 tab-caps (2 x 8.6-50 mg) PO BEDTIME Tobacco use date assessed: 12/12/23 Dental Screening Dental Screen Date: 12/12/23 HPI obesity HPI Details 59-year-old female with past medical history of GERD, hypercholesterolemia last seen by Dr. Herrera 12/12/2023 coming in for follow up.? At her last visit patient was started on semaglutide for weight loss. Patient states her insurance would not cover the Ozempic or Saxenda that was sent to the pharmacy for weight loss. She has been working on increasing her exercise but does find that she has limited due to pain and occasional leg swelling. Leg swelling is usually towards the end of the day and resolves with elevation. She also mentioned she has been having increased abdominal pain and IBS and was previously seen by GI in the past. She states most foods that she eats she will have abdominal pain and has been feeling more full. Lastly she mentions she has been having increased dyspnea on exertion without chest pain and finds that even a flight of stairs she has to stop to catch her breath. [facility] Medical History (Updated 03/08/24 @ 07:46 by June Guillermo PA-C) Osteoarthritis of right knee History of anemia History of vitamin D deficiency Hx of low back pain IBS (irritable bowel syndrome) Anxiety and depression Psoriasis Fibromyalgia Migraine Recurrent major depression Peripheral vascular disease Osteoarthritis Obesity (BMI 30-39.9) GERD (gastroesophageal reflux disease) Primary osteoarthritis of left knee COVID-19 Pneumonia Surgical History History of colonoscopy History of total right knee replacement (TKR) History of bunionectomy of both great toes S/P right unicompartmental knee replacement History of foot surgery History of tubal ligation History of arthroscopy of both knees S/P cholecystectomy Family History Father Diabetes Hypertension Mother Myocardial infarct Sister Myocardial infarct Other CVA (cerebral vascular accident) Social History Household Members: Spouse Housing: House Are you a primary director of managed care to a significant other at home: No Do you presently have visiting nurse or other home services: No Alcohol intake: current Alcohol intake frequency: holidays/special occasions only Comment: once q 3 months 1 glass Patient Tobacco Use Status: Former Tobacco user Tobacco use type: Cigarette Years Smoked: 2009 quit e-Cigarette/Vaping Use: Never Used Second Hand Smoke Exposure: No service: No Current occupational status: employed Cognitive needs: No Hearing needs: No Vision needs: Yes Questionnaire Thrive Questionnaire Date Thrive assessed: 12/12/23 HARRIS-7 AMB Questionnaire HARRIS-7 Date HARRIS - 7 assessed: 12/12/23 Source: Developed by Drs. Raffaele Bowman, Tomasa Rivas, John Gonzalez and colleagues, with an educational alexandra from [employer]. Review of Systems Const Denies body aches, Denies chills, Denies fever(s), Denies headache(s) and Denies poor appetite Eyes Reports no additional complaints ENT Denies dysphagia, Denies dizziness, Denies headache(s) and Denies odynophagia Card Denies chest pain, Denies syncope, Denies edema, Denies irregular heart rhythm, Denies lightheadedness, Denies dyspnea and Reports dyspnea on exertion Resp Denies cough, Denies dyspnea and Reports dyspnea on exertion GI Reports abdominal pain, Denies melena, Denies bloating, Denies hematochezia, Reports constipation, Denies dysphagia, Reports diarrhea, Reports nausea, Denies odynophagia and Denies vomiting Reports no additional complaints Musc Reports no additional complaints and Denies abnormal gait Skin/Breast Reports system reviewed and no additional complaints, except as documented Neuro Denies abnormal gait, Denies dizziness, Denies syncope and Denies headache(s) Psych Reports no additional complaints Physical exam (Primary Care) Vital Signs: Last Vital Signs Pulse 96 03/07/24 15:39 BP 114/70 03/07/24 15:39 Pulse Ox 96 03/07/24 15:39 Oxygen Delivery Method Room Air 03/07/24 15:39 BMI result Body Mass Index 40.1 Tobacco/Smoking Status: Tobacco use Status Tobacco use date assessed 12/12/23 03/07/24 15:42 Patient Tobacco Use Status Former Tobacco user 03/07/24 15:42 Tobacco use type Cigarette 03/07/24 15:42 e-Cigarette/Vaping Use Never Used 03/07/24 15:42 Thrive Assessment: Date of Thrive Assessment Date Thrive assessed 12/12/23 03/07/24 15:42 Const General: cooperative, healthy appearing, comfortable and no acute distress Orientation/consciousness: patient oriented x3 HENMT Head: Yes normocephalic Ears: hearing grossly normal bilaterally General nose exam: Normal external nose present Eyes General: appearance normal, both eyes and all related structures Conjunctivae: conjunctivae normal Neck Neck: Yes full ROM and Yes no lymphadenopathy Resp Effort & Inspection: normal respiratory effort Auscultation: clear to auscultation bilaterally, no crackles, no rales, no rhonchi and no wheezes Cardio Rate: regular rate Rhythm: regular rhythm GI Palpation (GI): Soft to palpation, not firm, Tenderness to palpation present (GI) in the epigastrum, no guarding, not rigid and no masses Skin General skin exam: no rashes or lesions noted Neuro General: patient oriented x3 Gait exam (Neuro): Normal gait present Extrem General: Yes normal to inspection, Yes full ROM and Yes edema (Nonpitting bilateral lower extremity) Psych Affect: normal affect Attitude: cooperative Insight: Good insight present (Psych) Judgement: Good judgement present (Psych) Coding Level of Care Code Est Pt Level 4 (28194) Diagnoses Hypercholesterolemia E78.00 Obesity (BMI 30-39.9) E66.9 GERD (gastroesophageal reflux disease) K21.9 IBS (irritable bowel syndrome) K58.9 Epigastric pain R10.13 Dyspnea on exertion R06.09 Peripheral vascular disease I73.9 Assessment & Plan Assessment & Plan (1) Hypercholesterolemia: Code(s): E78.00 - Pure hypercholesterolemia, unspecified Category: Medical Plan: Avoid foods that are high in cholesterol such as red meat, fried foods, eggs and baked goods. Triglyceride goal of less than 150 and LDL goal of less than 100. (2) Obesity (BMI 30-39.9): Code(s): E66.9 - Obesity, unspecified Category: Medical Plan: Healthy diet and regular exercise is encouraged. Referral placed to supervisor cd area and we will trial Zepbound. (3) GERD (gastroesophageal reflux disease): Comment: 2013 Code(s): K21.9 - Gastro-esophageal reflux disease without esophagitis Category: Medical Plan: Avoid trigger foods such as citrus, tomato products, soda, caffeine, spicy foods and other foods that may be irritating to your stomach. Avoid laying flat 3-4 hours after eating and elevate the head of the bed 30 degrees to prevent acid from moving into the esophagus. Continue on omeprazole (4) IBS (irritable bowel syndrome): Code(s): K58.9 - Irritable bowel syndrome, unspecified Category: Medical Plan: Patient has been seeing GI in the past but has not been seen in several years. She has noticed increased abdominal pain with eating and has extreme tenderness in the epigastric area. Ordered for abdominal ultrasound and we will refer to GI. (5) Epigastric pain: Code(s): R10.13 - Epigastric pain Category: Medical Plan: Patient having tenderness to palpation in epigastric area we will order for abdominal ultrasound and refer to GI. (6) Dyspnea on exertion: Code(s): R06.09 - Other forms of dyspnea Category: Medical Plan: Patient having increased dyspnea on exertion over the last several months without chest pain. We will order for pulmonary function testing and cardiac stress test to rule out pulm or cardiac involvement. Healthy diet and regular exercise is encouraged. (7) Peripheral vascular disease: Code(s): I73.9 - Peripheral vascular disease, unspecified Category: Medical Plan: Advised exercise as tolerated, compression stockings and leg elevation. Plan This note was constructed using voice recognition software. While every effort has been made to ensure accuracy and field servicer, still areas may have been included sometimes these areas may affect the content or meeting of the given symptoms. Total time spent caring for the patient today was 30 minutes. This includes time spent before the visit reviewing the chart, time spent during the visit, and time spent after the visit and documentation. Orders: Orders US abdomen complete 03/07/24 R10.13 - Epigastric pain CA stress test 03/07/24 R06.09 - Other forms of dyspnea PFT pulmonary function test 03/07/24 R06.09 - Other forms of dyspnea Referrals Gastroenterology Referral K58.9 - Irritable bowel syndrome, unspecified Fusing Line Inspector Nutrition Referral E66.9 - Obesity, unspecified Medications: New tirzepatide (weight loss) (Zepbound) for 4 weeks 2.5 mg (0.5 mL) subcut QWEEK 2 mL 0RF Discontinued liraglutide (weight loss) (Saxenda) Discontinued Reason: Insurance Denied 3 mg (0.5 mL) subcut DAILY 4 weeks 14 mL 0RF E66.9 - Obesity, unspecified
[2024-03-07 15:39] VITALS: BP 114/70; PULSE 96; O2SAT 96; BMI 40.1
== END 2024-03-07 16:18 | disposition home or self-care (01) ==
PROVIDERS: PCP Internal Medicine
DX: E78.00 Pure hypercholesterolemia, unspecified (principal); I73.9 Peripheral vascular disease, unspecified; E66.9 Obesity, unspecified; Z68.41 Body mass index [BMI] 40.0-44.9, adult; K21.9 Gastro-esophageal reflux disease without esophagitis; K58.9 Irritable bowel syndrome, unspecified; R10.13 Epigastric pain; R06.09 Other forms of dyspnea

== ENCOUNTER 2024-04-03 07:33 | Outpatient (REF) | payer OTHER, SELFPAY ==
--- NOTE | ~2024-04-03 | US_ITS ---
EXAMINATION: US ABDOMEN COMPLETE CLINICAL INFORMATION: Epigastric pain. COMPARISON: Ultrasound abdomen complete 12/09/2015. TECHNIQUE: Real-time imaging of the abdominal viscera. Technically limited study secondary to bowel gas. FINDINGS: PANCREAS: Visualized portions are unremarkable. ABDOMINAL AORTA: The proximal, mid, and distal segments are normal in caliber. INFERIOR VENA CAVA: Visualized portions are normal. LIVER: The liver is normal in size. The liver contour is normal. Increased echogenicity of the liver parenchyma, this can be seen in the setting of hepatic steatosis or liver parenchymal disease. No focal hepatic lesion. There is no intrahepatic biliary duct dilatation seen. GALLBLADDER: Surgically absent. COMMON BILE DUCT: Normal in caliber measuring 0.17 cm in diameter. RIGHT KIDNEY: No hydronephrosis. No renal calculi or focal parenchymal lesions. The kidney measures 9.7 cm in maximum dimension. LEFT KIDNEY: No hydronephrosis. No renal calculi or focal parenchymal lesions. The kidney measures 9.7 cm in maximum dimension. SPLEEN: The spleen measures 9.5 cm in maximum dimension. Spleen dilatation to the spleen 1.2 cm. FREE FLUID: None. US/US abdomen complete IMPRESSION: * Increased echogenicity of the liver parenchyma, this can be seen in the setting of hepatic steatosis or liver parenchymal disease. * Spleen is normal in size 9.5 cm. * No ultrasound evidence of intra or extrahepatic biliary dilatation. * Gallbladder has been removed. Electronically signed by: Nemesio Max MD 04/09/2024 05:48 PM [facility] [place]
--- NOTE | 2024-04-03 08:06 | CA_ITS ---
Acquisition Time: 2024-04-03 08:54:01 Total Exercise Time: 00:05:02 Test Indications: Dyspnea Medications: OMEPRAZOLE LIRAGLUTIDE Protocol: MARCIE Max HR: 142 BPM 87% of Pred: 163 BPM Max BP: 140/080 mmHG Max Work Load: 7.0 METS Exercise stress test with exercise 5 mins 2 secs of Marcie Protocol, acheiving 86% MPHR, with reports of moderate SOB, with 7/10 right sided chest tenderness that is reproducible, quickly resolved, without any arrythmias, with normotensive response to exercise. Without EKG changes meeting criteria for ischemia. In recovery, pt feeling back to baseline. Test reviewed with Dr. Adame. Referred By: June Guillermo Overread By: JUAN MANUEL HAM
== END 2024-04-03 07:34 | disposition home or self-care (01) ==
LOC: HO.US 07:33
PROVIDERS: PCP Internal Medicine
DX: R06.09 Other forms of dyspnea (principal); R10.13 Epigastric pain
CPT/HCPCS: 76700; 93017

== ENCOUNTER → 2024-04-03 08:06 | Outpatient (BNV) | payer OTHER, SELFPAY | PROVIDERS: PCP Internal Medicine; Visit Provider Nurse Practitioner Family | DX: R06.02 Shortness of breath (principal) | CPT/HCPCS: 93016; 93018 ==

== ENCOUNTER 2024-04-04 13:54 | Outpatient (AMB) | payer OTHER, SELFPAY ==
--- NOTE | 2024-04-04 14:10 | MHC.AMNUTRGE ---
VS Expanded 04/04/24 14:11 04/22/24 18:09 Height 5 ft 5 in 5 ft 5 in Weight 244 lb 4.355 oz 244 lb BMI 40.6 40.6 Intake Visit Reasons: Obesity/Confirmed Allergies ibuprofen [IBUPROFEN] Allergy (Unknown, Verified 12/12/23 17:05) GI UPSET Nutrition Presentation Details: Pt presents for MNT for obesity. Pt was referred by PCP food frequency fruits : 0-2/d ve/d dairy: 0-2/d prot: 12oz/d starches > 15 serving/d beverages: water/juice/tea/coffee physical activity : ADL ETOH/SMoking---- BS Monitoring Most Recent Diabetes Results: Cholesterol 203 mg/dL (<200) H 12/13/23 HDL Cholesterol 65 mg/dL (>40) 12/13/23 Triglycerides 145 mg/dL (<150) 12/13/23 Creatinine 0.83 mg/dL (0.5-1.4) 12/13/23 Blood Urea Nitrogen 18 mg/dL (9-16) H 12/13/23 Sodium 141 mmol/L (135-145) 12/13/23 Potassium 4.1 mmol/L (3.3-5.1) 12/13/23 Chloride 108 mmol/L (96-108) 12/13/23 Carbon Dioxide 21 mmol/L (22-29) L 12/13/23 Calcium 9.2 mg/dL (8.4-10.2) 12/13/23 AST 14 U/L (5-31) 12/13/23 ALT 19 U/L (0-31) 12/13/23 Total Protein 7.8 g/dL (6.5-8.0) 12/13/23 Albumin 4.1 g/dL (3.5-5.0) 12/13/23 ACP-Afxthfs-Gc.Jeor Equation Height: 5 ft 5 in Weight: 244 lb Resting Metabolic Rate: 1696.09 Calculated Activity Level: Sedentary Calories Needed to Maintain Weight: 2034.31 Diagnosis Nutrition problem #1: food nutri know defi As related to (etiology) #1: diagnosis As evidenced by (sign/symptom) #1: knowledge deficit of diet [facility] Medical History (Updated 03/08/24 @ 07:46 by June Guillermo PA-C) Osteoarthritis of right knee History of anemia History of vitamin D deficiency Hx of low back pain IBS (irritable bowel syndrome) Anxiety and depression Psoriasis Fibromyalgia Migraine Recurrent major depression Peripheral vascular disease Osteoarthritis Obesity (BMI 30-39.9) GERD (gastroesophageal reflux disease) Primary osteoarthritis of left knee COVID-19 Pneumonia Surgical History History of colonoscopy History of total right knee replacement (TKR) History of bunionectomy of both great toes S/P right unicompartmental knee replacement History of foot surgery History of tubal ligation History of arthroscopy of both knees S/P cholecystectomy Family History Father Diabetes Hypertension Mother Myocardial infarct Sister Myocardial infarct Other CVA (cerebral vascular accident) Social History Household Members: Spouse Housing: House Are you a primary insurance healthcare consultant to a significant other at home: No Do you presently have visiting nurse or other home services: No Alcohol intake: current Alcohol intake frequency: holidays/special occasions only Comment: once q 3 months 1 glass Patient Tobacco Use Status: Former Tobacco user Tobacco use type: Cigarette Years Smoked: 2009 quit e-Cigarette/Vaping Use: Never Used Second Hand Smoke Exposure: No service: No Current occupational status: employed Cognitive needs: No Hearing needs: No Vision needs: Yes Assessment & Plan Assessment & Plan (1) Obesity (BMI 30-39.9): Code(s): E66.9 - Obesity, unspecified Category: Medical Plan: Wt: 111 Kg (04/10 ) Est kcal needs as per MSJ: 2000 (40% carb, 30% protein/fat) Est fluid needs as per 25-30 ml/d: 3300 Est prot per day as per 1 g/kg bw: 111 Recommend fiber intake : 8-10 g per day and gradually increase to 25-28 g per day for women and 35-38 g for men or as tolerated Recommend sodium intake per day : less than 2300 mg Educated patient on: ( R = reviewed V = verbalizes understanding N/R = needs review N/A = not applicable Food sources of carbohydrate, adequate serving sizes and its role in various health conditions: R Differences between complex carbohydrates a simple carbohydrates, role of fiber in diet: R Lean protein sources of foods: R Differences between types of fats and role in diet (mono on saturated fat fatty acids, saturated fatty acids, trans fats): R V N/R Food sources of sodium in salt and healthy modifications for heart health in kidney health: R V R/V Vitamins and minerals: R V N/R Healthy plate method concept: R Physical activity: Benefits a precaution: R V N/R Patient Instructions: Practice mindful eating Have one meal replacement a day Work on reducing portions, reduce total carb to less than 75 g at dinner include fiber rich foods (salads /fruits, fruit/veg smoothies as example) Coding Level of Care Code Nutr Indiv Intake (29225) Diagnoses Obesity (BMI 30-39.9) E66.9 Time Spent (min) 30
[2024-04-04 14:11] VITALS: BMI 40.6
[2024-04-22 18:09] VITALS: BMI 40.6
== END 2024-04-04 14:45 | disposition home or self-care (01) ==
PROVIDERS: PCP Internal Medicine; Visit Provider Dietitian, Registered
DX: E66.9 Obesity, unspecified (principal)

== ENCOUNTER 2024-04-14 08:27 | Outpatient (REF) | payer OTHER, SELFPAY | END 2024-04-14 08:28 | disposition home or self-care (01) | LOC: HO.MAMMO 08:27 | PROVIDERS: PCP Internal Medicine; Visit Provider Internal Medicine | DX: Z12.31 Encounter for screening mammogram for malignant neoplasm of breast (principal) | CPT/HCPCS: 77063; 77067 ==

== ENCOUNTER → 2024-04-14 08:45 | Outpatient (BNV) | payer OTHER, SELFPAY | PROVIDERS: PCP Internal Medicine; Visit Provider Internal Medicine | DX: Z12.31 Encounter for screening mammogram for malignant neoplasm of breast (principal) | CPT/HCPCS: 77063; 77067 ==

== ENCOUNTER 2024-06-11 16:50 | Outpatient (AMB) | payer OTHER, SELFPAY ==
--- NOTE | 2024-06-11 17:25 | A.OFFPC_ITS ---
Vital Signs 06/11/24 17:26 Height 5 ft 5 in Weight 243 lb BMI 40.4 BP 120/82 Blood Pressure Location Lt brachial Position Sitting Pulse 78 Pulse Source Pulse Oximeter Pulse Oximetry (%) 98 Oxygen Delivery Method Room Air Intake Visit Reasons: f/u dyspnea and obesity Intake Note: Patient here for a follow up Dyspnea and Obesity Director Of Preclinical Research Required: No Accompanied by: Self / Same As Patient Allergies ibuprofen [IBUPROFEN] Allergy (Unknown, Verified 06/11/24 17:30) GI UPSET Medication List - Last Reconciled 06/11/24 by Negra Herrera MD acetaminophen 650 mg (2 x 325 mg) PO Q6H PRN iqukezt-ypnnjlduoabdx-mlmtlmry 250-250-65 mg (Excedrin Migraine) 1 tab PO Q4-6H PRN sennosides-docusate sodium 8.6-50 mg (Senna Plus) 2 tab-caps (2 x 8.6-50 mg) PO BEDTIME Tobacco use date assessed: 06/11/24 Dental Screening Dental Screen Date: 06/11/24 Did you have a dental visit in the last 12 months?: No Did you have a dental problem in the last 6 months where you did not have access to dental care?: No Was dental information given to patient?: Patient has dentist HPI f/u dyspnea and obesity HPI Details The patient is a 59-year-old female presenting for follow-up on several chronic health issues. She is known to have Gastroesophageal Reflux Disease (GERD) with symptoms exacerbated by larger meals. The condition has been managed without current pharmacotherapy, as the patient is not taking omeprazole for stomach or heartburn symptoms. Hypercholesterolemia is another concern, for which her cholesterol levels are reportedly good. The patient also has a history of morbid obesity, with previous attempts at weight management including exercise, such as using a treadmill and bike. The recent abdominal ultrasound showed hepatic steatosis, a condition explained as benign at this stage but potentially leading to liver complications if unmanaged. Arthritis presents another chronic issue, with management including the use of Excedrin for pain. Despite mild elevation in blood sugar levels, the patient's hemoglobin A1c remains normal. Finally, a low vitamin D level was identified, especially concerning during winter months. [facility] Medical History (Updated 06/11/24 @ 17:43 by Negra Herrera MD) Osteoarthritis of right knee History of anemia History of vitamin D deficiency Hx of low back pain IBS (irritable bowel syndrome) Anxiety and depression Psoriasis Fibromyalgia Migraine Recurrent major depression Peripheral vascular disease Osteoarthritis Obesity (BMI 30-39.9) GERD (gastroesophageal reflux disease) Primary osteoarthritis of left knee COVID-19 Pneumonia Surgical History History of colonoscopy History of total right knee replacement (TKR) History of bunionectomy of both great toes S/P right unicompartmental knee replacement History of foot surgery History of tubal ligation History of arthroscopy of both knees S/P cholecystectomy Family History Father Diabetes Hypertension Mother Myocardial infarct Sister Myocardial infarct Other CVA (cerebral vascular accident) Social History Household Members: Spouse Housing: House Are you a primary care associate to a significant other at home: No Do you presently have visiting nurse or other home services: No Alcohol intake: current Alcohol intake frequency: holidays/special occasions only Comment: once q 3 months 1 glass Patient Tobacco Use Status: Former Tobacco user Tobacco use type: Cigarette Years Smoked: 2009 quit e-Cigarette/Vaping Use: Never Used Second Hand Smoke Exposure: No service: No Current occupational status: employed Cognitive needs: No Hearing needs: No Vision needs: Yes Questionnaire PHQ-9 Over the last 2 weeks, how often have you been bothered by any of the following problems? 1. Little interest or pleasure in doing things: not at all 2. Feeling down, depressed, or hopeless: not at all 3. Trouble falling or staying asleep, or sleeping too much: not at all 4. Feeling tired or having little energy: not at all 5. Poor appetite or overeating: not at all 6. Feeling bad about yourself - or that you are a failure or have let yourself or your family down: not at all 7. Trouble concentrating on things, such as reading the newspaper or watching television: not at all 8. Moving or speaking so slowly that other people could have noticed. Or the opposite - being so fidgety or restless that you have been moving around a lot more than usual: not at all 9. Thoughts that you would be better off or of hurting yourself in some way: not at all Total score: 0 Depression Screening Interpretation: Negative Depression Screening Done: Yes Source: Developed by Drs. Raffaele Bowman, Tomasa Rivas, John Gonzalez and colleagues, with an educational alexandra from [employer]. Thrive Questionnaire Date Thrive assessed: 06/11/24 I am a: Patient What is your living situation today?: I have a steady place to live Within the past 12 months, did the food you bought not last and you didn't have the money to get more?: Never true Within the past 12 months, did you worry whether your food would run out before you got money to buy more?: Never true Do you have trouble paying for medicines?: No Do you have trouble getting transportation to medical appointments?: No Do you have trouble paying your heating and electricity bill?: No Do you have trouble taking care of your child, family member or friend?: No Do you have trouble with day-to-day activities such as bathing, preparing meals, shopping, managing finances, etc.?: No Are you currently unemployed and looking for a job?: No Are you interested in more education?: No Please select the resources that you would like help with: None Currently or been in a relationship where the following occur: No concerns reported THRIVE Score: 0 AUDIT C Alcohol Use Questionnaire (AUDIT-C) 1. How often do you have a drink containing alcohol?: Monthly or less 2. How many drinks containing alcohol do you have on a typical day when you are drinking?: 1 or 2 3. How often do you have six or more drinks on one occasion?: Never Total Score: 1 HARRIS-7 AMB Questionnaire HARRIS-7 Date HARRIS - 7 assessed: 06/11/24 Feeling nervous, anxious, or on edge: 0 = Not at all Not being able to stop or control worryin = Not at all Worrying too much about different things: 0 = Not at all Trouble relaxin = Not at all Being so restless that it is hard to sit still: 0 = Not at all Becoming easily annoyed or irritable: 0 = Not at all Feeling afraid as if something awful might happen: 0 = Not at all Total HARRIS-7 score (0-4 normal; 5-9 mild; 10-14 moderate; 15-21 severe): 0 Source: Developed by Drs. Raffaele Bowman, Tomasa Rivas, John Gonzalez and colleagues, with an educational alexandra from [employer]. Physical exam (Primary Care) Vital Signs: Last Vital Signs Pulse 78 06/11/24 17:26 BP 120/82 06/11/24 17:26 Pulse Ox 98 06/11/24 17:26 Oxygen Delivery Method Room Air 06/11/24 17:26 BMI result Body Mass Index 40.4 Tobacco/Smoking Status: Tobacco use Status Tobacco use date assessed 06/11/24 06/11/24 17:31 Patient Tobacco Use Status Former Tobacco user 06/11/24 17:31 Tobacco use type Cigarette 06/11/24 17:31 e-Cigarette/Vaping Use Never Used 06/11/24 17:31 PHQ-9: PHQ-9 Score PHQ-9: Total score 0 06/11/24 17:31 Depression Screening Interpretation: Negative Thrive Assessment: Date of Thrive Assessment Date Thrive assessed 06/11/24 06/11/24 17:31 Currently or been in a relationship where the following occur: No concerns re ported Const General: alert; No acute distress Eyes Conjunctivae: conjunctivae normal Resp Auscultation: clear to auscultation bilaterally Cardio Rate: regular rate Rhythm: regular rhythm GI Inspection: Yes normal to inspection Extrem General: Yes normal to inspection and No edema Coding Level of Care Code Est Pt Level 4 (52353) Diagnoses Morbid obesity E66.01 GERD (gastroesophageal reflux disease) K21.9 Hypercholesterolemia E78.00 Impaired glucose tolerance R73.02 Assessment & Plan Assessment & Plan (1) Morbid obesity: Code(s): E66.01 - Morbid (severe) obesity due to excess calories Category: Medical Plan: Diet and exercise (2) GERD (gastroesophageal reflux disease): Comment: 2013 Code(s): K21.9 - Gastro-esophageal reflux disease without esophagitis Category: Medical Plan: Avoid the foods that causes that usually spicy foods, tomato products, juices, coffee, soda and foods that your sensitive to. After eating do not lie down, allow 3-4 hours before in lie down. And keep the head of bed above 30 degrees to avoid the acid from going up. (3) Hypercholesterolemia: Code(s): E78.00 - Pure hypercholesterolemia, unspecified Category: Medical Plan: Avoid fried foods, chicken skin, eggs, butter margarine, pastries and meat. Be it pork or beef they have a lot of cholesterol (4) Impaired glucose tolerance: Code(s): R73.02 - Impaired glucose tolerance (oral) Category: Medical Plan: Decrease the amount of carbohydrate intake, pasta, bread, rice and potatoes are all sugar and that is aside from all the sweet stuff, remember that fruits are good but they are Sweet also. Plan - Continue monitoring GERD symptoms; consider lifestyle adjustments for symptom relief. - Maintain cholesterol management strategies, monitor levels regularly. - Address morbid obesity with continued emphasis on diet and exercise. Consider specialist support if needed. - Monitor hepatic steatosis progression; encourage lifestyle changes to prevent liver damage. - For arthritis, continue with current analgesics and consider alternative pain relief methods if needed. - Initiate vitamin D supplementation, particularly during winter. I advised the patient on the importance of managing hepatic steatosis through a healthy diet and regular exercise to prevent progression to cirrhosis. We discussed her current medication and vitamin regimen, emphasizing the need for vitamin D supplementation during winter. I addressed her weight management concerns, offering referral help with insurance barriers should she choose. I reinforced the negative stress test result and encouraged the continuation of current cardiovascular health measures. Lastly, we reviewed precautionary measures for the flu season and other viral illnesses. - Eat healthy, balanced meals to manage GERD and liver health. - Engage in regular physical activity such as walking or using a treadmill and bicycle. - Take prescribed vitamin D supplements, especially during winter. - Monitor portion sizes during meals to prevent stomach distress. - Continue taking current pain medication for arthritis as needed. - Contact the office if swelling or new symptoms develop. - Maintain regular follow-ups for chronic condition management. Orders: Orders Complete Blood Count Auto Diff 6 Months R73.02 - Impaired glucose tolerance (oral) Vitamin B12 and Folate 6 Months R73.02 - Impaired glucose tolerance (oral) Hemoglobin A1c 6 Months R73.02 - Impaired glucose tolerance (oral) Comprehensive Met. Panel 6 Months R73.02 - Impaired glucose tolerance (oral) Free T4 (Free Thyroxine) 6 Months R73.02 - Impaired glucose tolerance (oral) Lipid Panel 6 Months E78.00 - Pure hypercholesterolemia, unspecified, R73.02 - Impaired glucose tolerance (oral) Thyroid Stimulating Hormone 6 Months R73.02 - Impaired glucose tolerance (oral) Vitamin D 25-OH Total 6 Months R73.02 - Impaired glucose tolerance (oral) Referrals Medical Weight Management Referral E66.01 - Morbid (severe) obesity due to excess calories Medications: New cholecalciferol (vitamin D3) 50 mcg PO DAILY 90 days 90 caps 3RF E55.9 - Vitamin D deficiency, unspecified, R73.02 - Impaired glucose tolerance (oral)
[2024-06-11 17:26] VITALS: BP 120/82; PULSE 78; O2SAT 98; BMI 40.4
== END 2024-06-11 17:52 | disposition home or self-care (01) ==
PROVIDERS: PCP Internal Medicine; Visit Provider Internal Medicine
DX: K21.9 Gastro-esophageal reflux disease without esophagitis (principal); E66.01 Morbid (severe) obesity due to excess calories; Z68.41 Body mass index [BMI] 40.0-44.9, adult; R73.02 Impaired glucose tolerance (oral); E78.00 Pure hypercholesterolemia, unspecified

== ENCOUNTER → 2024-06-11 16:50 | Outpatient (BNVA) | payer OTHER, SELFPAY | PROVIDERS: PCP Internal Medicine; Visit Provider Internal Medicine ==

== ENCOUNTER → 2024-06-26 07:14 | Outpatient (BNVA) | payer OTHER, SELFPAY | PROVIDERS: PCP Internal Medicine; Visit Provider Physician Assistant Surgical ==

== ENCOUNTER 2024-06-29 08:06 | Outpatient (AMB) | payer OTHER, SELFPAY ==
--- NOTE | 2024-06-29 08:01 | MHC.OFFVISWM ---
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 Allergies ibuprofen [IBUPROFEN] Allergy (Unknown, Verified 06/29/24 08:02) GI UPSET Medication List - Last Reconciled 06/29/24 by Anthony Crabtree MD [id number] 250-250-65 mg (Excedrin Migraine) 1 tab PO Q4-6H PRN cholecalciferol (vitamin D3) 50 mcg PO DAILY 90 days multivitamin 1 tab PO DAILY omeprazole 20 mg PO DAILY HPI HPI 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: Details: Start time: 7.52am, End time: 8.42am ?I spent 45 minutes speaking with the patient on the phone plus an additional 5 minutes reviewing and updating records for a total of 50 minutes HPI Comments Details: Previous weight loss efforts: calorie counting Wakes up: 5am, Sleeps: 10.30pm Breakfast: skips Lunch: skips Dinner: 6.30pm (fish, chicken, broccoli, pork) Snacks: twice between wake-up and dinner (yogurt, nuts), one snack after dinner (fruits, or ice cream) Exercise: has home treadmill and bike Beverages: Coffee: none, tea: 1-2 cups/day (honey), soda: none, juice: Runnells water, ETOH: 1/wk (glass of wine) PFSH Medical History (Updated 06/29/24 @ 08:05 by Anthony Crabtree MD) Steatosis, liver Osteoarthritis of right knee History of anemia History of vitamin D deficiency Hx of low back pain IBS (irritable bowel syndrome) Anxiety and depression Psoriasis Fibromyalgia Migraine Recurrent major depression Peripheral vascular disease Osteoarthritis Obesity (BMI 30-39.9) GERD (gastroesophageal reflux disease) Primary osteoarthritis of left knee COVID-19 Pneumonia Surgical History (Updated 06/29/24 @ 08:05 by Anthony Crabtree MD) History of laparoscopic cholecystectomy History of endoscopy History of colonoscopy History of total right knee replacement (TKR) History of bunionectomy of both great toes S/P right unicompartmental knee replacement History of foot surgery History of tubal ligation History of arthroscopy of both knees S/P cholecystectomy Family History (Updated 06/26/24 @ 08:01 by Carmel Aragon CMA) Father Diabetes Hypertension Mother Myocardial infarct Sister Myocardial infarct Daughter Migraine Daughter Migraine Other CVA (cerebral vascular accident) Social History Household Members: Spouse Housing: House Are you a primary care transitions nurse to a significant other at home: No Do you presently have visiting nurse or other home services: No Alcohol intake: current Alcohol intake frequency: holidays/special occasions only Comment: once q 3 months 1 glass Patient Tobacco Use Status: Former Tobacco user Tobacco use type: Cigarette Years Smoked: 2009 quit e-Cigarette/Vaping Use: Never Used Second Hand Smoke Exposure: No service: No Current occupational status: employed Cognitive needs: No Hearing needs: No Vision needs: Yes Telehealth Telehealth Telehealth Platform: Telephone Location of provider rendering services: practice address Location of patient: address on file Patient Identification confirmed using: Name, : Yes Telehealth method: voice only Patient verbally consented to treatment: Yes Patient verbally consented to billing insurance company: Yes Patient informed of any privacy concerns related to visit: Yes Minutes spent on Phone/Video with Pt.: 50 Assessment & Plan Assessment & Plan (1) Morbid obesity: Code(s): E66.01 - Morbid (severe) obesity due to excess calories Category: Medical Plan: 1.? Plan for lap sleeve gastrectomy. If diaphragmatic or ventral hernias are present at time of surgery, these will be repaired laparoscopically as well. I emphasized the importance of close follow-up, adherence to instructions and good communication. The surgery does not replace the need to change your lifestlyle which is the cause of the obesity problem. The surgery provides the motivation to try again to change your lifestyle, it reduces the appetite and make the transition to a better lifestyle easier and doubles the amount of weight you would lose compared to doing the lifestyle change without the surgery. You will need to be on a liquid diet with protein shakes for 2 weeks before surgery to maximize weight loss and boost your nutritional status to recover better from surgery and also for the first two weeks after surgery to let the stomach heal before we introduce other foods. After the first 2 weeks we will introduce protein bars and soft foods like scrambled eggs, cottage cheese and yogurt and after the 6th week will introduce meat, fish and cooked vegetables in small amounts. Over time you should be able to eat everything in small amounts. Side effects like nausea, vomiting, heartburn or abdominal pain are not common in the practice unless you are not following in the practice. This operation requires lifetime commitment to following in our practice and communication with me. You will much less weight and experience side effects if you don?t communicate or not following in the practice. Complications are rare and in our practice is about 1/10 of the national average. However, you can develop bleeding that may require transfusion (hasn?t happened for year in the practice), you may from complications (we did not have any deaths in the practice) and infections. Infections are usually a result of breakdown in communication or not understanding or following directions correctly. They are difficult to treat, they can happen during the first 6 weeks, they may require to be in the hospital for weeks or even months, not being able to eat by mouth and you may have drains and surgeries to try and correct the issue. Other risks and complications include possible conversion to an open procedure, leaks, small bowel obstruction, blood clots, cardiac, or pulmonary complications, as terminal computer operator complications such as ulcers, insufficient weight loss and vitamin deficiencies. 2. You will receive a link of our software fabricio to generate an individualized nutritional and exercise plan specific for you. Please send me a screenshot of the plans you will generate Meal to include lean meat (beef, fish, pork, turkey, chicken), or kinyarwanda yogurt, or egg whites, or beans with a salad with olive oil and fruits (berries, pears, apples, kiwi). Avoid salt, breads, potatoes, rice, pasta, desserts. ?3. If you choose shakes, each shake would be drunk slowly, like coffee in a period of 2 hours. ?4. If you choose bars, cut each bar in 4 pieces and eat each piece in 30min ?to make each bar last 2 hours. ?5. I emphasized the importance of measuring accurately the food portion and measure it when serving the food in plate ?6. The meal portions include a specific number of forks of meat and salad. You always eat the meat portion but you can replace up to half of salad/vegetables portion with rice, potatoes or pasta, or a fruit ?if you like. The less you do it the better weight loss will be. ?7. One full-size fork is what it can be scooped on the fork without falling aside and not what can be bit with the fork. Use regular forks like those you find in a typical restaurant. ?8.? Please buy the body composition scale we discussed and send me weight measurements as soon as possible and then once a week. Always include your diet and exercise plan. 9. The best choice would be to purchase a stationary bike, elliptical or treadmill at home that can track calories. Let me know if you do so I can give you an exercise plan. ?10.?It is important of avoiding and for at least 18 months postoperatively and has been discussed at the infosession. ?11. Goal is to lose at least 1.5-2lbs per week ?12. Goal to lose 10% of your weight before surgery, which is about 24lbs. Ultimate weight goal: 217lbs before surgery 13. Please follow the diet plan exactly without any change. If you don't like something about the plan or you feel hungry you need to communicate with me so I can help you revise the plan. You should not change the plan yourself. 14. To be scheduled for EGD due to the history of sleeve gastrectomy and anemia. The possibility of biopsies was discussed. Patient needs to avoid use of NSAIDs and aspirin for 1 week prior to EGD. You must be on liquids only the day before your endoscopy. Risks of perforation and bleeding was discussed with the patient. This will be an outpatient procedure with IV sedation. Orders: Orders Insulin Today E66.01 - Morbid (severe) obesity due to excess calories, K21.9 - Gastro-esophageal reflux disease without esophagitis, K76.0 - Fatty (change of) liver, not elsewhere classified Hemoglobin A1c Today E66.01 - Morbid (severe) obesity due to excess calories, K21.9 - Gastro-esophageal reflux disease without esophagitis, K76.0 - Fatty (change of) liver, not elsewhere classified H Pylori Breath Test Today E66.01 - Morbid (severe) obesity due to excess calories, K21.9 - Gastro-esophageal reflux disease without esophagitis, K76.0 - Fatty (change of) liver, not elsewhere classified Lipid Panel Today E66.01 - Morbid (severe) obesity due to excess calories, K21.9 - Gastro-esophageal reflux disease without esophagitis, K76.0 - Fatty (change of) liver, not elsewhere classified IRON PROFILE Today E66.01 - Morbid (severe) obesity due to excess calories, K21.9 - Gastro-esophageal reflux disease without esophagitis, K76.0 - Fatty (change of) liver, not elsewhere classified Vitamin B12 and Folate Today E66.01 - Morbid (severe) obesity due to excess calories, K21.9 - Gastro-esophageal reflux disease without esophagitis, K76.0 - Fatty (change of) liver, not elsewhere classified C Reactive Protein Today E66.01 - Morbid (severe) obesity due to excess calories, K21.9 - Gastro-esophageal reflux disease without esophagitis, K76.0 - Fatty (change of) liver, not elsewhere classified Vitamin A Today E66.01 - Morbid (severe) obesity due to excess calories, K21.9 - Gastro-esophageal reflux disease without esophagitis, K76.0 - Fatty (change of) liver, not elsewhere classified Vitamin D 25-OH Total Today E66.01 - Morbid (severe) obesity due to excess calories, K21.9 - Gastro-esophageal reflux disease without esophagitis, K76.0 - Fatty (change of) liver, not elsewhere classified XR chest 2V Today E66.01 - Morbid (severe) obesity due to excess calories, K21.9 - Gastro-esophageal reflux disease without esophagitis, K76.0 - Fatty (change of) liver, not elsewhere classified ECG 12 lead EKG Today E66.01 - Morbid (severe) obesity due to excess calories, K21.9 - Gastro-esophageal reflux disease without esophagitis, K76.0 - Fatty (change of) liver, not elsewhere classified FL upper GI w air Today E66.01 - Morbid (severe) obesity due to excess calories, K21.9 - Gastro-esophageal reflux disease without esophagitis, K76.0 - Fatty (change of) liver, not elsewhere classified Complete Blood Count Auto Diff Today E66.01 - Morbid (severe) obesity due to excess calories, K21.9 - Gastro-esophageal reflux disease without esophagitis, K76.0 - Fatty (change of) liver, not elsewhere classified Comprehensive Met. Panel Today E66.01 - Morbid (severe) obesity due to excess calories, K21.9 - Gastro-esophageal reflux disease without esophagitis, K76.0 - Fatty (change of) liver, not elsewhere classified Zinc Today E66.01 - Morbid (severe) obesity due to excess calories, K21.9 - Gastro-esophageal reflux disease without esophagitis, K76.0 - Fatty (change of) liver, not elsewhere classified Vitamin B1 Today E66.01 - Morbid (severe) obesity due to excess calories, K21.9 - Gastro-esophageal reflux disease without esophagitis, K76.0 - Fatty (change of) liver, not elsewhere classified TSH reflex Free T4 Today E66.01 - Morbid (severe) obesity due to excess calories, K21.9 - Gastro-esophageal reflux disease without esophagitis, K76.0 - Fatty (change of) liver, not elsewhere classified Ferritin Today E66.01 - Morbid (severe) obesity due to excess calories, K21.9 - Gastro-esophageal reflux disease without esophagitis, K76.0 - Fatty (change of) liver, not elsewhere classified US abdomen comp w elastography Today E66.01 - Morbid (severe) obesity due to excess calories, K21.9 - Gastro-esophageal reflux disease without esophagitis, K76.0 - Fatty (change of) liver, not elsewhere classified Referrals Behavioral Health Referral E66.01 - Morbid (severe) obesity due to excess calories, K21.9 - Gastro-esophageal reflux disease without esophagitis, K76.0 - Fatty (change of) liver, not elsewhere classified Nutrition/Dietitian Referral E66.01 - Morbid (severe) obesity due to excess calories, K21.9 - Gastro-esophageal reflux disease without esophagitis, K76.0 - Fatty (change of) liver, not elsewhere classified
[2024-06-29 08:10] VITALS: BMI 40.1
== END 2024-06-29 08:43 | disposition home or self-care (01) ==
LOC: HO.HBS 08:06
PROVIDERS: PCP Internal Medicine; Visit Provider Surgery
DX: E66.813 Obesity, class 3 (principal); Z68.41 Body mass index [BMI] 40.0-44.9, adult
CPT/HCPCS: 99204

== ENCOUNTER → 2024-06-29 08:06 | Outpatient (BNVA) | payer OTHER, SELFPAY | PROVIDERS: PCP Internal Medicine; Visit Provider Surgery ==

== ENCOUNTER 2024-07-03 07:05 | Outpatient (REF) | payer OTHER, SELFPAY ==
--- NOTE | ~2024-07-03 | XR_ITS ---
CLINICAL HISTORY: E66.01 - Morbid (severe) obesity due to excess calories 2 view chest x-ray Comparison: CR/SR - XR CHEST 2V - 04/23/22 09:14 EST Findings: The lungs are clear. Heart size is normal. No acute fracture. IMPRESSION: 1. No acute cardiopulmonary abnormality. This document has been electronically signed by: Theresa Wells on 07/04/2024 09:01:51
[2024-07-03 07:28] LABS: MANUAL DIFF FLAG NO
--- NOTE | 2024-07-03 07:30 | ECG_ITS ---
Test Reason : E66.01 Blood Pressure : */* mmHG Vent. Rate : 74 BPM Atrial Rate : 74 BPM P-R Int : 148 ms QRS Dur : 80 ms QT Int : 374 ms P-R-T Axes : 19 6 -2 degrees QTcB Int : 415 ms Normal sinus rhythm Minimal voltage criteria for LVH, may be normal variant ( R in aVL ) Borderline ECG When compared with ECG of 03-Aug-2021 12:23, No significant change was found Referred By: Anthony Crabtree Electronically Signed By: Kin Diaz
[2024-07-03 08:06] LABS: Basophils Percent Auto 0.3 % (0-2); Eosinophils Absolute Auto 0.1 X10*3/uL (0.0-0.4); Eosinophils Percent Auto 1.9 % (0-4); Hematocrit 39.7 % (37.0-47.0); Hemoglobin 13.1 g/dl (12.0-16.0); Imm Gran Abs Auto 0.01 X10*3/uL (0.00-0.03); Imm Gran Pct Auto 0.2 % (0.0-0.4); Lymphocytes Percent Auto 34.4 % (20-40); Mean Corpuscular Hemoglobin 28.9 pg (27.0-33.0); Mean Corpuscular Volume 87.6 fL (80.0-98.0); Mean Platelet Volume 12.2 fL (9.4-12.3); Monocytes Absolute Auto 0.4 X10*3/uL (0.1-1.2); Monocytes Percent Auto 7.4 % (2-11); Neutrophils Absolute Auto 3.3 x10*3/uL (2.0-8.3); Neutrophils Percent Auto 55.8 % (45-73); Platelet Count 212 X10*3/uL (160-400); Red Blood Count 4.53 X10*6/uL (4.20-5.50); White Blood Count 5.8 X10*3/uL (4.8-10.8)
[2024-07-03 08:21] LABS: Estimated Average Glucose 117 mg/dL; Hemoglobin A1c % 5.7 % (<6.0)
[2024-07-03 08:45] LABS: Alanine Aminotransferase 31 U/L (0-31); Albumin Level 4.2 g/dL (3.5-5.0); Anion Gap 13 (12-20); Aspartate Amino Transferase 31 U/L (5-31); Bilirubin Total 0.9 mg/dL (0.0-1.0); Blood Urea Nitrogen 15 mg/dL (9-16); Calcium 8.8 mg/dL (8.4-10.2); Carbon Dioxide 25 mmol/L (22-29); Chloride 108 mmol/L (96-108); Cholesterol 205 mg/dL (<200); Estimated Glomerular Filt Rate > 60; Glucose Random 96 mg/dL (60-115); HDL Cholesterol 62 mg/dL (>40); Iron 96 mcg/dL (30-160); LDL Cholesterol Calculated 118 mg/dL (<100); Percent Iron Saturation 31 % (15-50); Potassium 3.9 mmol/L (3.3-5.1); Sodium 142 mmol/L (135-145); Total Iron Binding Capacity 314 mcg/dL (228-428); Total Protein 8.1 g/dL (6.5-8.0); Triglycerides 128 mg/dL (<150); Unsaturated Iron Binding 218 ug/dL
[2024-07-03 09:08] LABS: Ferritin 84 ng/mL (10-250); TSH reflex Free T4 1.46 uIU/mL (0.32-4.0); Vitamin D 25-OH Total 26.4 ng/mL (>30)
[2024-07-03 09:12] LABS: Folate 15.6 ng/mL (> or = 4.0); Vitamin B12 643 pg/mL (200-900)
[2024-07-03 09:22] LABS: Alkaline Phosphatase 99 U/L (39-117); Insulin 12 uU/mL (2-29)
[2024-07-05 20:40] LABS: Zinc 78 mcg/dL (60-130)
[2024-07-06 11:53] LABS: Vitamin A 62 mcg/dL (38-98)
[2024-07-09 14:34] LABS: Vitamin B1 8 nmol/L (8-30)
== END 2024-07-03 07:06 | disposition home or self-care (01) ==
LOC: HO.XRAY 07:05
PROVIDERS: PCP Internal Medicine; Visit Provider Surgery
DX: E66.01 Morbid (severe) obesity due to excess calories (principal); K21.9 Gastro-esophageal reflux disease without esophagitis; K76.0 Fatty (change of) liver, not elsewhere classified
CPT/HCPCS: 36415; 71046; 80053; 80061; 82306; 82607; 82728; 82746; 83036; 83525; 83540; 84425; 84443; 84590; 84630; 85025; 86140; 93005

== ENCOUNTER → 2024-07-03 07:30 | Outpatient (BNV) | payer OTHER, SELFPAY | PROVIDERS: PCP Internal Medicine; Visit Provider Internal Medicine Cardiovascular Disease | DX: E66.01 Morbid (severe) obesity due to excess calories (principal) | CPT/HCPCS: 93010 ==

== ENCOUNTER → 2024-07-03 07:41 | Outpatient (BNV) | payer OTHER, SELFPAY | PROVIDERS: PCP Internal Medicine; Visit Provider Radiology Vascular & Interventional Radiology | DX: E66.01 Morbid (severe) obesity due to excess calories (principal) | CPT/HCPCS: 71046 ==

== ENCOUNTER → 2024-07-04 13:57 | Outpatient (BNVA) | payer OTHER, SELFPAY | PROVIDERS: PCP Internal Medicine; Visit Provider Dietitian, Registered ==

== ENCOUNTER 2024-07-18 15:52 | Outpatient (AMB) | payer OTHER, SELFPAY ==
[2024-07-18 15:54] VITALS: BP 126/58; PULSE 82; BMI 40.1
--- NOTE | 2024-07-18 15:54 | A.OFFVIS_ITS ---
Vital Signs 07/18/24 15:54 Height 5 ft 5 in Weight 241 lb BMI 40.1 BP 126/58 L Blood Pressure Location Lt brachial Position Sitting Pulse 82 Intake Visit Reasons: screening, fatty liver Intake Note: Carolyn presents in the office as a new patient for fatty liver. CC: She states that she has an EGD scheduled with weight management on August 07 - she is a little confused as to why she was sent here if she has that appt. She is aware that she has fatty liver. 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 She reports epigastric pain X 1 year, primarily experienced post prandial Associated symptoms: occ nausea Aggravating factors:red sauce, sweet, greasy and fried foods Alleviating attempts: none identified Patient denies: systemic symptoms, vomiting, melena/hematochezia or evidence of hemorrhoids Reports long hx of constipation, takes OTC laxative and hot tea every other day during flare. Also consuming OTC fiber gummies. Shares most recent flare 3 days ago. Bowel movement today. She is established with bariatric surgery and is following a high protein bariatric diet, does consume some fiber. Known GERD, fairly managed with omeprazole 20 mg daily and by avoiding triggers Last colonoscopy 2017, complete with good prep- noted 1 small HP polyp. Surgical history: [facility], years ago Social hx: ETOH, 1-2 glass of wine/month denies recreational drug use former smoker, smoked 4 cigarettes/day for total of 15 years ( 3 pack-year hx) denies personal CA hx Denies family CA or liver diease hx PFSH Medical History Steatosis, liver Osteoarthritis of right knee History of anemia History of vitamin D deficiency Hx of low back pain IBS (irritable bowel syndrome) Anxiety and depression Psoriasis Fibromyalgia Migraine Recurrent major depression Peripheral vascular disease Osteoarthritis Obesity (BMI 30-39.9) GERD (gastroesophageal reflux disease) Primary osteoarthritis of left knee COVID-19 Pneumonia Surgical History History of laparoscopic cholecystectomy History of endoscopy History of colonoscopy History of total right knee replacement (TKR) History of bunionectomy of both great toes S/P right unicompartmental knee replacement History of foot surgery History of tubal ligation History of arthroscopy of both knees S/P cholecystectomy Family History Father Diabetes Hypertension Mother Myocardial infarct Sister Myocardial infarct Daughter Migraine Daughter Migraine Other CVA (cerebral vascular accident) Social History Household Members: Spouse Housing: House Are you a primary care clinician to a significant other at home: No Do you presently have visiting nurse or other home services: No Alcohol intake: current Alcohol intake frequency: holidays/special occasions only Comment: once q 3 months 1 glass Patient Tobacco Use Status: Former Tobacco user Tobacco use type: Cigarette Years Smoked: 2009 quit e-Cigarette/Vaping Use: Never Used Second Hand Smoke Exposure: No service: No Current occupational status: employed Cognitive needs: No Hearing needs: No Vision needs: Yes Review of Systems Const Reports as per HPI Reports as per HPI Neuro Reports Abnormal speech present Physical Exam Vital Signs: Last Vital Signs Pulse 82 07/18/24 15:54 BP 126/58 L 07/18/24 15:54 BMI result Body Mass Index 40.1 Const General: cooperative, healthy appearing, comfortable, no acute distress, alert and awake Nutritional Appearance: obese Orientation/consciousness: patient oriented x3 Limitations: no limitations GI Inspection: Yes obesity Neuro General: patient oriented x3 Cognition (Neuro): normal cognition Speech: Abnormal speech present Gait exam (Neuro): Normal gait present Psych Appearance: grossly normal Speech and movement: Normal speech and movement present Affect: normal affect Attitude: cooperative Thought process: Normal thought process present Thought content: Normal thought content present Insight: Good insight present (Psych) Judgement: Good judgement present (Psych) Assessment & Plan Assessment & Plan (1) Steatosis, liver: Code(s): K76.0 - Fatty (change of) liver, not elsewhere classified Category: Medical Plan: Likely 2/2 to MAFLD given underlying risk factoes. Reviewed 03/2024 U/S and 06/2024 labs. Based on normal LFTs low suspicion for active MITCHELL. Fib 4 is 1.50. Plan: - Agree with U/S elastography ordered by bariatrics. - Labs ordered to r/o other causes of liver disease including AIH (high protein/albumin ratio noted) and chronic hep - Education on progression prevention including LDL < 100, optimal < 70; - 10 % TBW loss advised over next 6 months - 150 mins of mod intensity exercise per week ? (2) Constipation: Code(s): K59.00 - Constipation, unspecified Category: Medical Plan: Overall consistent with CIC. Encouraged increased hydration and fiber. OK to take OTC miralax as needed. (3) GERD (gastroesophageal reflux disease): Code(s): K21.9 - Gastro-esophageal reflux disease without esophagitis Category: Medical Plan: Risk factors include obesity compromising reflux barriers, dietary triggers. UGIS pending - can check for hiatal hernia. Plan: - Pt already scheduled for EGD through bariatrics - Cont omeprazole 20 once daily to be taken on empty stomach (4) Morbid obesity: Code(s): E66.01 - Morbid (severe) obesity due to excess calories Category: Medical (5) Colon cancer screening: Code(s): Z12.11 - Encounter for screening for malignant neoplasm of colon Category: Medical Plan: Last colo in 2018. Due for next in 2027. Pt aware. Plan Follow up 6 months with Sharmin Alfonso for fatty liver Orders: Orders Hepatitis C Antibody 07/18/24 K76.0 - Fatty (change of) liver, not elsewhere classified KARIE Reflex Titer and Pattern 07/18/24 K76.0 - Fatty (change of) liver, not elsewhere classified Smooth Muscle Antibody 07/18/24 K76.0 - Fatty (change of) liver, not elsewhere classified Liver Kidney Microsomal Ab 07/18/24 K76.0 - Fatty (change of) liver, not elsewhere classified Mitochondrial Antibody 07/18/24 K76.0 - Fatty (change of) liver, not elsewhere classified Hepatitis B Core Antibody 07/18/24 K76.0 - Fatty (change of) liver, not elsewhere classified Hepatitis B Surface Ab Qnt 07/18/24 K76.0 - Fatty (change of) liver, not elsewhere classified Hepatitis B Surface Antibody 07/18/24 K76.0 - Fatty (change of) liver, not elsewhere classified Hepatitis B Surface Antigen 07/18/24 K76.0 - Fatty (change of) liver, not elsewhere classified Hepatitis A IgG 07/18/24 K76.0 - Fatty (change of) liver, not elsewhere classified Immunoglobulins,IgG IgA IgM 07/18/24 K76.0 - Fatty (change of) liver, not elsewhere classified Coding Level of Care Code New Pt Level 4 (03630) Complex EM visit Add On G2211 Diagnoses Steatosis, liver K76.0 Constipation K59.00 GERD (gastroesophageal reflux disease) K21.9 Morbid obesity E66.01 Colon cancer screening Z12.11
--- NOTE | 2024-07-18 16:51 | MHC.OFFVISCO ---
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 Education Record Steel Wheel Engraver Required: No Education Intervention/Brief Description of Teaching 9. Demonstrates understanding of notifying all providers of pending dental 10. Able to state Home Care instructions Questionnaires Maxim Prediction Score Rsk VTE .: BMI result Body Mass Index 40.1 Coding Assessment & Plan Assessment & Plan Orders: Orders Hepatitis C Antibody Today K76.0 - Fatty (change of) liver, not elsewhere classified KARIE Reflex Titer and Pattern Today K76.0 - Fatty (change of) liver, not elsewhere classified Smooth Muscle Antibody Today K76.0 - Fatty (change of) liver, not elsewhere classified Liver Kidney Microsomal Ab Today K76.0 - Fatty (change of) liver, not elsewhere classified Mitochondrial Antibody Today K76.0 - Fatty (change of) liver, not elsewhere classified Hepatitis B Core Antibody Today K76.0 - Fatty (change of) liver, not elsewhere classified Hepatitis B Surface Ab Qnt Today K76.0 - Fatty (change of) liver, not elsewhere classified Hepatitis B Surface Antibody Today K76.0 - Fatty (change of) liver, not elsewhere classified Hepatitis B Surface Antigen Today K76.0 - Fatty (change of) liver, not elsewhere classified Hepatitis A IgG Today K76.0 - Fatty (change of) liver, not elsewhere classified Immunoglobulins,IgG IgA IgM Today K76.0 - Fatty (change of) liver, not elsewhere classified
== END 2024-07-18 16:36 | disposition home or self-care (01) ==
LOC: HO.HGI 15:53
PROVIDERS: PCP Internal Medicine; Visit Provider Internal Medicine
DX: K76.0 Fatty (change of) liver, not elsewhere classified (principal); K59.00 Constipation, unspecified; K21.9 Gastro-esophageal reflux disease without esophagitis
CPT/HCPCS: 99204

== ENCOUNTER 2024-07-20 07:06 | Outpatient (REF) | payer OTHER, SELFPAY ==
[2024-07-20 08:56] LABS: HBS Num1 0.84 mIU/mL (0-7.99); HBc Num1 0.16 S/CO (0.00-0.79); HBsAGNum1 0.26 S/CO (0.00-0.99); Hepatitis B Core Antibody Nonreactive (Nonreactive); Hepatitis B Surface Antigen Negative (Negative); ~HepC Num1 0.14 S/CO (0.00-0.79); ~Hepatitis B Surface Antibody NONREACTIVE (Nonreactive); ~Hepatitis C Antibody Nonreactive (Nonreactive)
[2024-07-21 07:03] LABS: Hepatitis B Surface Ab Qnt <5 mIU/mL (> OR = 10)
[2024-07-24 08:59] LABS: IgA 215 mg/dL (47-310); IgG 1292 mg/dL (600-1640); IgM 78 mg/dL (50-300)
[2024-07-24 09:44] LABS: Mitochondrial Antibodies NEGATIVE (NEGATIVE)
[2024-07-24 21:48] LABS: Smooth Muscle Antibody <20 U (<20)
[2024-07-25 04:40] LABS: Hepatitis A Antibody IgG Nonreactive (Nonreactive); ~Hepatitis A Antibody IgG 0.33 S/CO (0.00-0.99)
[2024-07-25 09:37] LABS: Liver Kidney Microsomal Ab <=20.0 U (<=20.0)
[2024-07-27 11:23] LABS: Anti Nuclear Antibody Screen NEGATIVE (NEGATIVE)
== END 2024-07-20 07:07 | disposition home or self-care (01) ==
LOC: HO.LAB 07:06
PROVIDERS: PCP Internal Medicine; Visit Provider Nurse Practitioner Family
DX: K76.0 Fatty (change of) liver, not elsewhere classified (principal)
CPT/HCPCS: 36415; 82784; 86015; 86038; 86317; 86376; 86381; 86704; 86706; 86708; 86803; 87340

== ENCOUNTER → 2024-08-02 08:11 | Outpatient (AMB) | payer OTHER, SELFPAY ==
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
== END ==
LOC: HO.HBST 08:11
PROVIDERS: PCP Internal Medicine; Visit Provider Counselor Mental Health
DX: E66.9 Obesity, unspecified (principal); F43.20 Adjustment disorder, unspecified; Z71.89 Other specified counseling
CPT/HCPCS: 90791

== ENCOUNTER 2024-08-10 07:48 | Outpatient (REF) | payer OTHER, SELFPAY ==
--- NOTE | ~2024-08-10 | US_ITS ---
EXAMINATION: US ABDOMEN COMPLETE WITH LIVER ELASTOGRAPHY HISTORY: E66.01 - Morbid (severe) obesity due to excess calories TECHNIQUE: Real-time grayscale ultrasound imaging of the abdomen was performed and images were reviewed. COMPARISON: Comparison is made with the prior examination dated 04/03/2024. FINDINGS: Liver: The right lobe of the liver measures 11.5 cm in size. The left lobe of the liver measures 7.9 cm in size. The liver demonstrates increased echotexture, consistent with steatosis. No focal mass or intrahepatic biliary ductal dilatation is identified. There is normal hepatopedal flow in the portal vein. Ultrasound elastography of the liver was performed with 10 separate measurements of the liver parenchyma with the patient in the supine position. Measurements were obtained approximately 2 cm below Tres's capsule and perpendicular to the capsule. Images are of satisfactory quality. The median shear wave velocity is 1.25 m/s. The interquartile range/median (IQR/median) is 0.08. Gallbladder and biliary tree: The gallbladder is surgically absent. The common bile duct is normal in caliber measuring 2 mm. Kidneys: The right kidney measures 10.3 cm in length. The left kidney measures 10.4 cm in length. The kidneys are unremarkable, without evidence of masses, hydronephrosis, or calculi. Pancreas: The pancreatic head, neck, and body are unremarkable. The pancreatic tail is obscured by bowel gas. Spleen: The spleen is normal in size and contour, measuring 1.9 cm in length. A 1.4 cm splenule is noted. Abdominal aorta and inferior vena cava: The visualized portions of the abdominal aorta and inferior vena cava are normal in caliber. There is no free fluid in the abdomen. US/US abdomen comp w elastography IMPRESSION: Hepatic steatosis. The median shear wave velocity in the liver is 1.25 m/s, corresponding to a median liver stiffness of 4.78 kPa. The IQR/median value is 0.08. This is indicative of a quality data set. Findings are indicative of a normal elastography value with a low likelihood of severe fibrosis or cirrhosis. REFERENCE: Society of [employer] in Ultrasound Liver Stiffness Thresholds (2020): LIVER STIFFNESS THRESHOLDS: *Shear wave velocity less than 1.3 m/s (Liver Stiffness equal or less than 5 kPa): High probability of being normal. *Shear wave velocity less than 1.7 m/s (Liver Stiffness less than 9 kPa): In the absence of other known clinical signs, rules out compensated advanced chronic liver disease. *Shear wave velocity between 1.7-2.1 m/s (Liver Stiffness 9-13 kPa): Suggestive of compensated advanced chronic liver disease but need further test for confirmation. *Shear wave velocity between 2.1-2.4 m/s (Liver Stiffness 13-17 kPa): Rules in compensated advanced chronic liver disease. *Shear wave velocity greater than 2.4 m/s (Liver Stiffness over 17 kPa): Suggestive of clinically significant portal hypertension. QUALITY OF DATA SET: *IQR/Median value equal or less than 0.15 implies a quality data set. *IQR/Median value over 0.15 implies a poor quality data set. SIGNIFICANT CHANGE FROM PRIOR EXAM: Significant change if liver stiffness measurement is 10% or greater from prior exam. OTHER CONSIDERATIONS: The stage of liver fibrosis may be overestimated in the setting of acute hepatitis, liver inflammation, elevated liver function tests, hepatic vascular congestion, obstructive cholestasis, non-fasting state, and infiltrative diseases such as amyloidosis and lymphoma. In some patients with NAFLD, the liver stiffness thresholds for compensated advanced chronic liver disease may be lower. In causes other than viral hepatitis and NAFLD, liver stiffness thresholds are not well established. Electronically signed by: Raffaele Boyer MD 08/10/2024 11:56 AM EDT
== END 2024-08-10 07:49 | disposition home or self-care (01) ==
LOC: HO.US 07:48
PROVIDERS: PCP Internal Medicine; Visit Provider Surgery
DX: E66.01 Morbid (severe) obesity due to excess calories (principal); K21.9 Gastro-esophageal reflux disease without esophagitis; K76.0 Fatty (change of) liver, not elsewhere classified
CPT/HCPCS: 76700; 76981

== ENCOUNTER → 2024-08-10 07:49 | Outpatient (BNV) | payer OTHER, SELFPAY | PROVIDERS: PCP Internal Medicine; Visit Provider Radiology Diagnostic Radiology | DX: K74.00 Hepatic fibrosis, unspecified (principal); E66.01 Morbid (severe) obesity due to excess calories | CPT/HCPCS: 76700; 76981 ==

== ENCOUNTER 2024-08-10 11:53 | Day surgery (SDC) | payer OTHER, SELFPAY ==
[2024-08-02 12:17] VITALS: BMI 40.1
--- NOTE | 2024-08-02 13:41 | P.CONAN_ITS ---
Documented by User: Marielle Kennedy NP 08/09/24 09:19 HPI - Anesthesia Eval Consult details Narrative: 59yo F for Upper Endoscopy BMI 40.1 PMFSH Active Problems Active Problems: All Active Problems Colon cancer screening (Acute) Impaired glucose tolerance (Acute) Morbid obesity (Acute) Dyspnea on exertion (Acute) Epigastric pain (Acute) Iliotibial band syndrome (Acute) Lisha-menopausal (Acute) Plantar fasciitis, right (Acute) History of total right knee replacement (Acute) Status post total knee replacement, left (Acute) Right-sided chest pain (Acute) Annual physical exam (Acute) Constipation (Acute) Macromastia (Acute) Hypercholesterolemia (Acute) Steatosis, liver (Acute) Peripheral vascular disease (Acute) IBS (irritable bowel syndrome) (Acute) Obesity (BMI 30-39.9) (Acute) GERD (gastroesophageal reflux disease) (Acute) Past Medical History Medical History (Updated 07/19/24 @ 08:31 by Melyssa Chen MD) Steatosis, liver Osteoarthritis of right knee History of anemia History of vitamin D deficiency Hx of low back pain IBS (irritable bowel syndrome) Anxiety and depression Psoriasis Fibromyalgia Migraine Recurrent major depression Peripheral vascular disease Osteoarthritis Obesity (BMI 30-39.9) GERD (gastroesophageal reflux disease) Primary osteoarthritis of left knee COVID-19 Pneumonia Family History Family History Father Diabetes Hypertension Mother Myocardial infarct Sister Myocardial infarct Daughter Migraine Daughter Migraine Other CVA (cerebral vascular accident) Family history of problems with anesthesia: No Surgical History Surgical History (Updated 08/02/24 @ 12:14 by Bri Quinn RN) History of total left knee replacement History of laparoscopic cholecystectomy History of endoscopy History of colonoscopy History of total right knee replacement (TKR) History of bunionectomy of both great toes S/P right unicompartmental knee replacement History of foot surgery History of tubal ligation History of arthroscopy of both knees S/P cholecystectomy History of Problems with Anesthesia: No Social History Social History Household Members: Spouse Housing: House Are you a primary social worker palliative care to a significant other at home: No Do you presently have visiting nurse or other home services: No Alcohol intake: current Alcohol intake frequency: holidays/special occasions only Comment: once q 3 months 1 glass Patient Tobacco Use Status: Former Tobacco user Tobacco use type: Cigarette Years Smoked: 2009 quit e-Cigarette/Vaping Use: Never Used Second Hand Smoke Exposure: No Advance Directives: No Advance Directives Information Provided: Yes service: No Current occupational status: employed Cognitive needs: No Hearing needs: No Vision needs: Yes Meds Allergies Allergy/AdvReac Type Severity Reaction Status Date / Time ibuprofen [IBUPROFEN] Allergy Unknown GI UPSET Verified 07/18/24 15:56 Home Medications ?Medication ?Instructions ?Recorded ?Confirmed ?Last Taken ?Type fqakcuz-ttycamgusutec-bybapivz 250 1 tab PO Q4-6H PRN Migraine 07/20/21 08/02/24 Unknown History mg-250 mg-65 mg tablet (Excedrin Headache Migraine) multivitamin 1 tab PO DAILY 06/26/24 08/02/24 Unknown History omeprazole 20 mg capsule,delayed 20 mg PO DAILY 06/26/24 08/02/24 Unknown History release Exam Height,Weight and Vital Signs: Height 5 ft 5 in Weight 109.316 kg Assessment and Plan Assessment Anesthesia Assessment: Chart Reviewed Final Anesthetic Review Family History of Problems with Anesthesia: No History of Problems with Anesthesia: No Documented by User: Kathe Houston MD 08/10/24 12:43 PMFSH Past Medical History Medical History (Updated 07/19/24 @ 08:31 by Melyssa Chen MD) Steatosis, liver Osteoarthritis of right knee History of anemia History of vitamin D deficiency Hx of low back pain IBS (irritable bowel syndrome) Anxiety and depression Psoriasis Fibromyalgia Migraine Recurrent major depression Peripheral vascular disease Osteoarthritis Obesity (BMI 30-39.9) GERD (gastroesophageal reflux disease) Primary osteoarthritis of left knee COVID-19 Pneumonia Family History Family History Father Diabetes Hypertension Mother Myocardial infarct Sister Myocardial infarct Daughter Migraine Daughter Migraine Other CVA (cerebral vascular accident) Surgical History Surgical History (Updated 08/02/24 @ 12:14 by Bri Quinn RN) History of total left knee replacement History of laparoscopic cholecystectomy History of endoscopy History of colonoscopy History of total right knee replacement (TKR) History of bunionectomy of both great toes S/P right unicompartmental knee replacement History of foot surgery History of tubal ligation History of arthroscopy of both knees S/P cholecystectomy Social History Social History Household Members: Spouse Housing: House Are you a primary social worker palliative care to a significant other at home: No Do you presently have visiting nurse or other home services: No Alcohol intake: current Alcohol intake frequency: holidays/special occasions only Comment: once q 3 months 1 glass Patient Tobacco Use Status: Former Tobacco user Tobacco use type: Cigarette Years Smoked: 2009 quit e-Cigarette/Vaping Use: Never Used Second Hand Smoke Exposure: No Advance Directives: No Advance Directives Information Provided: Yes service: No Current occupational status: employed Cognitive needs: No Hearing needs: No Vision needs: Yes Meds Allergies Allergy/AdvReac Type Severity Reaction Status Date / Time ibuprofen [IBUPROFEN] Allergy Unknown GI UPSET Verified 07/18/24 15:56 Home Medications ?Medication ?Instructions ?Recorded ?Confirmed ?Last Taken ?Type aehxjio-gxmrbnmaxxexe-mqrosiwr 250 1 tab PO Q4-6H PRN Migraine 07/20/21 08/02/24 Unknown History mg-250 mg-65 mg tablet (Excedrin Headache Migraine) multivitamin 1 tab PO DAILY 06/26/24 08/02/24 Unknown History omeprazole 20 mg capsule,delayed 20 mg PO DAILY 06/26/24 08/02/24 Unknown History release Exam Airway Mallampati Class: III TM Dist: >3cm Neck ROM: Full Assessment and Plan Assessment Anesthesia Assessment: Anesthesia Plan Discussed Final Anesthetic Review NPO: Yes ASA Class: III Final Preanesthetic Review: No Changes in Pt Med Stat, Meds/Allgs Chart Reviewed, Consent Obtained/Reviewed and Anes Risks/Benef Reviewed Patient Risk: Intermediate Procedure Risk: Low Anesthetic Plan Anesthetic Plan: TIVA Disposition: Standard PACU
[2024-08-10] VITALS (7 sets, daily range): BP systolic 90–128; BP diastolic 44–65; PULSE 64–72; RESP 12–18; TEMP 36.1–36.6; O2SAT 95–99
[2024-08-10] MEDS: Lactated Ringers 1,000 ML 100 ML IVCONT (12:44)
--- NOTE | 2024-08-10 12:45 | P.HPSUR_ITS ---
Pre-Procedural Eval Section A - 24 Hr Update-Section A only Date of Service: 08/10/24 The patient is an INPATIENT: No The patient has been examined within 24 hours of the surgical procedure. The History & Physical has been completed within 30 days and I have reviewed it.: Yes Section B - Complete if H&P > 30 days Chief Complaint: Morbid (severe) obesity due to excess calories Details of Present Illness: GERD Relevant Family History (Specify if Yes): No Relevant Social History: None Present Medications: None Medical History: No relevant PMH History of Previous Operations: No relevant previous surgery Allergies: Allergies Allergy/AdvReac Type Severity Reaction Status Date / Time ibuprofen [IBUPROFEN] Allergy Unknown GI UPSET Verified 07/18/24 15:56 Review of Systems Sugical H&P ROS: Negative: Constitution, Cardiovascular, Respiratory, Neurological, Psychiatric, Hem-Onc, Allergic/Immunologic, Gastrointestinal, Genitourinary, Musculoskeletal, Integumentary, Endocrine and Eyes/Ea rs/Nose/Throat Exam Surgical H&P Exam: Normal: HEENT, Normal: Heart, Normal: Lungs, Normal: Extremities, Normal: Abdomen, Normal: Skin and Normal: Neurological Plan Diagnosis/Plan: Unchanged (EGD to assess etiology of GERD. Risks of bleeding and perforation were discussed with the patient and she is in agreement with the plan.) I have reviewed the history and physical and performed a pertinent physical examination on my patient. No changes have occurred unless specified. Time Spent With Patient Time: Total time managing care of this patient today ____ minutes.
--- NOTE | 2024-08-10 13:13 | P.BOP_ITS ---
Brief Operative Note Date of Service: 08/10/24 Pre-op diagnosis: GERD Post-op diagnosis: same Procedure: PROCEDURE DATE: 08/10/2024 PREOPERATIVE DIAGNOSIS: GERD POSTOPERATIVE DIAGNOSIS: ?Same as above. 1) diffuse gastritis, 2) small 2cm diaphragmatic hernia PROCEDURE: Nxdghzhs-lejkhv-bubohezeipkh with biopsies Surgeon: ?Tong Crabtree M.D.. Ph.D. Assistant Service Manager: None ? Anesthesia: IV sedation Estimated blood loss: ?Minimal FINDINGS AND PROCEDURE: ? OPERATIVE INDICATIONS: ?The patient is a 59 year old female known to me who is interested in bariatric surgery. The patient has GERD. Based on this information I recommended an upper endoscopy to evaluate the patient's symptoms. Risks and complications of the surgery were discussed with the patient in advance particularly the possibility of perforation or bleeding that may require surgical intervention. The patient understood the risks and was in agreement with the plan. ? PROCEDURE: After informed consent was obtained by the patient, the patient was ?transferred to the Operating Room and was placed in the supine position.? After successful induction of IV sedation, a mouth block was inserted and the patient was placed in the left lateral decubitus position. An upper endoscopy was performed next, the oropharynx and esophagus appeared within the normal limits. There was a small 2cm hiatal hernia. The z-line was smooth. Two biopsies were obtained from the distal esophagus 2-3 cm proximal to the GE junction and two additional biopsies from the GE junction. The stomach was entered and it appeared to be of normal size. There was diffuse gastritis throughout the stomach. There was no stricture or ulcer. A biopsy was obtained from the gastric fundus, mid-body and the antrum. No significant bleeding was noted from any of the biopsy sites. Retroflexion of the scope confirmed the presence of a small diaphragmatic hernia. The scope was then advanced into the duodenum which appeared to be normal as well. At that point the duodenum ?and the stomach were decompressed and the scope was withdrawn from the patient's mouth. The patient extubated and was transferred in stable condition to the Recovery Room for further care. I was present and performed all steps of the procedure. There were no residents to assist with this case. Tong Crabtree M.D., Ph.D. Surgeon: Anthony Crabtree MD Anesthesia: MAC Was an Assistant Service Manager used for this Procedure?: No Estimated blood loss (mL): 0 IV fluids (mL): 400 Urine output (mL): 0 (No Sanchez to record output) Pathology: other (1) antrum x1, 2) fundus x1, 3) GE junction x2, 4) distal esophagus x2, 5) mid-gastric body x1) Condition: stable Disposition: PACU
== END 2024-08-10 14:48 | disposition home or self-care (01) ==
PROVIDERS: PCP Internal Medicine; Visit Provider Surgery
PROC: 0DJ08ZZ Inspection of Upper Intestinal Tract, Via Natural or Artificial Opening Endoscopic (ICD-10-PCS; CPT 43235; principal; 2024-08-10 14:20)
DX: K21.9 Gastro-esophageal reflux disease without esophagitis (principal); E66.01 Morbid (severe) obesity due to excess calories; Z68.41 Body mass index [BMI] 40.0-44.9, adult; K29.50 Unspecified chronic gastritis without bleeding; K44.9 Diaphragmatic hernia without obstruction or gangrene; K76.0 Fatty (change of) liver, not elsewhere classified; K58.9 Irritable bowel syndrome, unspecified; M79.7 Fibromyalgia; G43.909 Migraine, unspecified, not intractable, without status migrainosus; L40.9 Psoriasis, unspecified; F41.9 Anxiety disorder, unspecified; Z79.1 Long term (current) use of non-steroidal anti-inflammatories (NSAID); Z88.6 Allergy status to analgesic agent; Z90.49 Acquired absence of other specified parts of digestive tract; Z98.890 Other specified postprocedural states; Z87.891 Personal history of nicotine dependence
CPT/HCPCS: 43239; 88305; 88313; 88342; J2003; J2704

== ENCOUNTER → 2024-08-10 11:53 | Outpatient (BNV) | payer OTHER, SELFPAY | PROVIDERS: PCP Internal Medicine; Visit Provider Surgery | DX: K44.9 Diaphragmatic hernia without obstruction or gangrene (principal) | CPT/HCPCS: 43239 ==

== ENCOUNTER 2024-08-29 08:12 | Outpatient (AMB) | payer OTHER, SELFPAY ==
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
== END 2024-08-29 08:53 | disposition home or self-care (01) ==
LOC: HO.HBST 08:12
PROVIDERS: PCP Internal Medicine; Visit Provider Counselor Mental Health
DX: F43.20 Adjustment disorder, unspecified (principal); Z71.89 Other specified counseling; E66.9 Obesity, unspecified
CPT/HCPCS: 90834

== ENCOUNTER 2024-09-11 08:22 | Outpatient (AMB) | payer OTHER, SELFPAY ==
--- NOTE | 2024-09-11 10:59 | A.OFFVIS_ITS ---
VS Expanded 09/11/24 11:21 Height 5 ft 5 in Weight 225 lb BMI 37.4 Body Fat % 49.7 Body Fat Mass 111.8 Fat Free Mass 113.2 Visceral Fat Rating 19 Body Water % 34.5 Body Water Mass 77.6 Basal Metabolic Rate/Score 1,475 Intake Visit Reasons: TV Pre Op LSG 09/25/24 Allergies ibuprofen [IBUPROFEN] Allergy (Unknown, Verified 09/11/24 11:07) GI UPSET Medication List - Last Reconciled 09/11/24 by Anthony Crabtree MD [id number] 250-250-65 mg (Excedrin Migraine) 1 tab PO Q4-6H PRN cholecalciferol (vitamin D3) 50 mcg PO DAILY 90 days multivitamin 1 tab PO DAILY omeprazole 40 mg PO DAILY ondansetron 4 mg PO Q12H pantoprazole 40 mg PO DAILY polyethylene glycol 3350 17 grams PO DAILY sucralfate 10 mL PO BID HPI HPI TV Pre Op LSG 09/25/24: Details: Start time: 10.55am, End time: 11.25am ?I spent 25 minutes speaking with the patient on the phone plus an additional 5 minutes reviewing and updating records for a total of 30 minutes HPI Comments Details: Overall weight loss: 16lbs, or 6.6% TBWL Is doing 2 Celebrate Rebuild protein shakes (1.5 scoop and one scoop in 8oz almond milk), 2 Celebrate protein bars and one meal (8 forks of meat and 8 forks of salad) Exercise: doing treadmill or bike [facility], [facility] Medical History (Updated 08/20/24 @ 17:20 by Anthony Crabtree MD) Steatosis, liver Osteoarthritis of right knee History of anemia History of vitamin D deficiency Hx of low back pain IBS (irritable bowel syndrome) Anxiety and depression Psoriasis Fibromyalgia Migraine Recurrent major depression Peripheral vascular disease Osteoarthritis Obesity (BMI 30-39.9) GERD (gastroesophageal reflux disease) Primary osteoarthritis of left knee COVID-19 Pneumonia Surgical History (Updated 08/02/24 @ 12:14 by Bri Quinn RN) History of total left knee replacement History of laparoscopic cholecystectomy History of endoscopy History of colonoscopy History of total right knee replacement (TKR) History of bunionectomy of both great toes S/P right unicompartmental knee replacement History of foot surgery History of tubal ligation History of arthroscopy of both knees S/P cholecystectomy Family History Father Diabetes Hypertension Mother Myocardial infarct Sister Myocardial infarct Daughter Migraine Daughter Migraine Other CVA (cerebral vascular accident) Social History Household Members: Spouse Housing: House Are you a primary childcare center administrator to a significant other at home: No Do you presently have visiting nurse or other home services: No Alcohol intake: current Alcohol intake frequency: holidays/special occasions only Comment: once q 3 months 1 glass Patient Tobacco Use Status: Former Tobacco user Tobacco use type: Cigarette Years Smoked: 2009 quit e-Cigarette/Vaping Use: Never Used Second Hand Smoke Exposure: No service: No Current occupational status: employed Cognitive needs: No Hearing needs: No Vision needs: Yes Telehealth Telehealth Telehealth Platform: Telephone Location of provider rendering services: practice address Location of patient: address on file Patient Identification confirmed using: Name, : Yes Telehealth method: voice only Patient verbally consented to treatment: Yes Patient verbally consented to billing insurance company: Yes Patient informed of any privacy concerns related to visit: Yes Minutes spent on Phone/Video with Pt.: 30 Assessment & Plan Assessment & Plan (1) Obesity (BMI 30-39.9): Code(s): E66.9 - Obesity, unspecified Category: Medical Plan: 1. Plan for lap sleeve gastrectomy including upper GI endoscopy. All tests has been completed and reviewed and the patient is cleared for the surgery. ?If diaphragmatic or ventral hernias are present at time of surgery, these will be repaired laparoscopically as well. Risks and complications were discussed in detail including possible conversion to an open procedure, anastomotic leak, bleeding requiring transfusion, small bowel obstruction, , DVT and pulmonary embolism, cardiac, or pulmonary complications, as technician terminal and repeater complications such as anastomotic ulcer, insufficient weight loss and vitamin deficiencies. I emphasized the importance of close follow-up, adherence to instructions and good communication. So far she has proven to be an excellent communicator and very compliant with all our directions accomplishing a great weight loss. I believe that she is an excellent candidate and she is ready. 2. Preop prescriptions were provided and explained the purpose of each one. Need to be purchased preop. Start Pantoprazole now as you get it from the pharmacy, 1 pill per day. Sucralfate and Zofran are for after surgery as needed. 3. Bowel prep: please do 7 packets ?of Miralax mixing each one with a an 8oz glass of water, crystal light, gatorade zero, or propel ?on 09/23/24 and the same amount on 09/24/24. The Miralax you begin with one packet at a time in 8oz water or crystal light, gatorade zero, or propel ?as early in the day as you can and you do them back to back until you finish them. Continue the protein shakes during ?the bowel prep. 4. Needs to purchase 1oz medicine cups . 5. Needs to purchase Children's liquid Tylenol for postop pain control. 6. She needs to stop the Excedrin as of today 09/11/24. Avoid aspirin, motrin, Advil, Aleve, Meloxicam, Excedrin, Ibuprofen, Naproxyn. Tylenol is OK. 7. She needs to purchase the Celebrate multivitamins from the hospital's gift shop, chewable or pills whatever you prefer. 8. Will do basic preop blood work-up any day between Tuesday03/22/22 and Tuesday03/26/22 fasting for 12 hours and is scheduled to see the Anesthesiologist prior to the day of surgery. 9. Importance of adherence to postop folllow-up and recommendations was unders cored and she understands that. 10. Stop food and bars as of 09/13/24 and continue with 2 Celebrate REBUILD protein shakes (ONE scoop EACH in 8oz almond milk) at 7am-9am and 10am- 12pm, and THREE more Celebrate REBUILD protein shakes with TWO scoops in 8oz of almond milk at 1pm-3pm, 4pm-6pm and 7pm-9pm 11. No soups, broths or V8 12. The patient's?medical?history has been reviewed and they are considered low risk for post op DVT and therefore DVT prophylaxis is not considered necessary. Travel after surgery was reviewed. The patient has not disclosed any travel plans during the first 30 days after surgery and they have been advised that within the first 30 days after surgery any bus, plane, train or car travel over 2 hours in duration is contraindicated due to the possibility of developing blood clots from immobility. Any travel, needs to include periods of ambulation of 10 minutes in duration every 2 hours.? Patient was instructed to discuss any plans for travel during this period with their bariatric surgeon.? 13. Please take at the day of surgery the following medications: NONE 14. Stop any control pills and don't use them for one month after surgery 15. Absolutely no smoking or vaping, or marijuana until the surgery and for at least the first 4 weeks. Only nicotine patches are allowed. 16. Send me weight measurements on 09/13/24, on 09/20/24 and then on Tuesday09/25/24, the day of surgery before you go to the hospital. 17. Avoid any steroids by mouth for any reason. Let me know if someone prescribes them to you 18. These instructions supersede anything else you read in the handbook, anything you watched in videos or classes or you were told by any other provider. If there is any conflict, you follow the above instructions and nothing else. Orders: Orders TSH reflex Free T4 Today E66.9 - Obesity, unspecified, K21.9 - Gastro- esophageal reflux disease without esophagitis Prothrombin Time INR Today E66.9 - Obesity, unspecified, K21.9 - Gastro- esophageal reflux disease without esophagitis Hemoglobin A1c Today E66.9 - Obesity, unspecified, K21.9 - Gastro-esophageal reflux disease without esophagitis Lipid Panel Today E66.9 - Obesity, unspecified, K21.9 - Gastro-esophageal reflux disease without esophagitis Complete Blood Count Auto Diff Today E66.9 - Obesity, unspecified, K21.9 - Gastro-esophageal reflux disease without esophagitis C Reactive Protein Today E66.9 - Obesity, unspecified, K21.9 - Gastro- esophageal reflux disease without esophagitis Insulin Today E66.9 - Obesity, unspecified, K21.9 - Gastro-esophageal reflux disease without esophagitis Comprehensive Met. Panel Today E66.9 - Obesity, unspecified, K21.9 - Gastro- esophageal reflux disease without esophagitis Type and Screen Today E66.9 - Obesity, unspecified, K21.9 - Gastro-esophageal reflux disease without esophagitis Partial Thromboplastin Time Today E66.9 - Obesity, unspecified, K21.9 - Gastro- esophageal reflux disease without esophagitis Medications: New pantoprazole 40 mg PO DAILY 90 tabs 0RF K21.9 - Gastro-esophageal reflux disease without esophagitis sucralfate 10 mL PO BID 600 mL 2RF K21.9 - Gastro-esophageal reflux disease without esophagitis ondansetron Only take one every 12 hours as needed if you have nausea 4 mg PO Q12H 20 tabs 0RF nausea and vomiting R11.0 - Nausea polyethylene glycol 3350 Mix each measuring cup with 8oz of water, Crystal light, or Gatorade zero, or Propel and do 7 measuring cups on 09/23/24 and another 7 measuring cups on 09/24/24 17 grams PO DAILY 238 grams 0RF Z01.818 - Encounter for other preprocedural examination
[2024-09-11 11:21] VITALS: BMI 37.4
== END 2024-09-11 11:24 | disposition home or self-care (01) ==
LOC: HO.HBS 08:22
PROVIDERS: PCP Internal Medicine; Visit Provider Surgery
DX: E66.9 Obesity, unspecified (principal)
CPT/HCPCS: 99214

== ENCOUNTER → 2024-09-11 08:22 | Outpatient (BNVA) | payer OTHER, SELFPAY | PROVIDERS: PCP Internal Medicine; Visit Provider Surgery ==

== ENCOUNTER → 2024-09-17 07:17 | Outpatient (BNVA) | payer OTHER, SELFPAY | PROVIDERS: PCP Internal Medicine; Visit Provider Physician Assistant Surgical ==

== ENCOUNTER 2024-09-21 09:12 | Outpatient (REF) | payer OTHER, SELFPAY ==
--- NOTE | ~2024-09-21 | FL_ITS ---
EXAMINATION: XR FLUOROSCOPY UPPER GI WITH AIR CLINICAL INFORMATION: Moderate to severe obesity. The COMPARISON: None available. TECHNIQUE: Routine upper GI air contrast study was performed in upright and lying position FINDINGS: Following oral administration of thick barium and effervescent granules is normal propagation bolus from the oral cavity through the pharynx, esophagus into stomach without any evidence of obstruction, narrowing or stricture. No evidence of laryngeal penetration or aspiration. Following placing patient lying supine and prone the course, caliber and peristalsis of the stomach, duodenal bulb and this CT is normal. There is mild gastric secretions noted. The mucosal pattern of the stomach is unremarkable. The duodenal mucosal pattern is unremarkable as well. The course, caliber and peristalsis of the stomach and the duodenum is normal. FLUOROSCOPY TIME: 1 minute 29 seconds DOSE AREA PRODUCT: 1772 uGy-m2 (microgray-meter squared) FL/FL upper GI w air IMPRESSION: Unremarkable upper GI air contrast examination. Electronically signed by: Horacio Gomez MD 09/21/2024 12:36 PM EDT
[2024-09-22 09:23] LABS: H Pylori Breath Test Negative (Negative)
== END 2024-09-21 09:13 | disposition home or self-care (01) ==
LOC: HO.XRAY 09:12
PROVIDERS: PCP Internal Medicine; Visit Provider Surgery
DX: E66.01 Morbid (severe) obesity due to excess calories (principal); K21.9 Gastro-esophageal reflux disease without esophagitis; K76.0 Fatty (change of) liver, not elsewhere classified
CPT/HCPCS: 74246; 83013

== ENCOUNTER → 2024-09-21 09:13 | Outpatient (BNV) | payer OTHER, SELFPAY | PROVIDERS: PCP Internal Medicine; Visit Provider Radiology Diagnostic Radiology | DX: E66.01 Morbid (severe) obesity due to excess calories (principal) | CPT/HCPCS: 74246 ==

== ENCOUNTER 2024-09-25 10:38 | Inpatient (IN) | payer OTHER, SELFPAY ==
[2024-09-12 12:13] VITALS: BMI 37.4
[2024-09-17 07:15] LABS: MANUAL DIFF FLAG NO
[2024-09-17 08:15] LABS: Basophils Percent Auto 0.4 % (0-2); Eosinophils Absolute Auto 0.1 X10*3/uL (0.0-0.4); Eosinophils Percent Auto 2.2 % (0-4); Hematocrit 38.6 % (37.0-47.0); Hemoglobin 13.2 g/dl (12.0-16.0); Imm Gran Abs Auto 0.01 X10*3/uL (0.00-0.03); Imm Gran Pct Auto 0.2 % (0.0-0.4); Lymphocytes Absolute Auto 1.9 X10*3/uL (1.2-4.9); Lymphocytes Percent Auto 34.1 % (20-40); Mean Corpuscular HGB Conc 34.2 g/dl (31.0-35.0); Mean Corpuscular Hemoglobin 29.3 pg (27.0-33.0); Mean Corpuscular Volume 85.6 fL (80.0-98.0); Mean Platelet Volume 12.6 fL (9.4-12.3); Monocytes Absolute Auto 0.5 X10*3/uL (0.1-1.2); Monocytes Percent Auto 8.5 % (2-11); Neutrophils Percent Auto 54.6 % (45-73); Platelet Count 186 X10*3/uL (160-400); Red Blood Count 4.51 X10*6/uL (4.20-5.50); Red Cell Distribution Width 14.1 % (11.0-16.0); White Blood Count 5.4 X10*3/uL (4.8-10.8)
[2024-09-17 08:19] LABS: Prothrombin Time 11.5 SEC (10.9-12.4)
[2024-09-17 08:22] LABS: Partial Thromboplastin Time 30.9 SEC (26.0-36.8)
[2024-09-17 08:32] LABS: Estimated Average Glucose 117 mg/dL; Hemoglobin A1C 136.4238 umol/L; Hemoglobin A1c % 5.7 % (<6.0); Total Hemoglobin (HGBA1C) 3486.2358 umol/L
[2024-09-17 08:41] LABS: Alanine Aminotransferase 21 U/L (0-31); Albumin Level 4.4 g/dL (3.5-5.0); Alkaline Phosphatase 86 U/L (39-117); Anion Gap 13 (12-20); Aspartate Amino Transferase 31 U/L (5-31); Bilirubin Total 0.4 mg/dL (0.0-1.0); Blood Urea Nitrogen 16 mg/dL (9-16); C Reactive Protein 0.53 mg/dL (< or = 0.50); Calcium 9.1 mg/dL (8.4-10.2); Carbon Dioxide 23 mmol/L (22-29); Chloride 109 mmol/L (96-108); Cholesterol 174 mg/dL (<200); Creatinine Clr Calc Pharmacy 95.5; Estimated Glomerular Filt Rate > 60; Glucose Random 89 mg/dL (60-115); HDL Cholesterol 54 mg/dL (>40); LDL Cholesterol Calculated 100 mg/dL (<100); Potassium 4.4 mmol/L (3.3-5.1); Sodium 141 mmol/L (135-145); Total Protein 7.8 g/dL (6.5-8.0); Triglycerides 104 mg/dL (<150)
[2024-09-17 09:03] LABS: TSH reflex Free T4 1.43 uIU/mL (0.32-4.0)
[2024-09-17 09:14] LABS: Insulin 8 uU/mL (2-29)
--- NOTE | 2024-09-21 14:20 | HO.ANESPROP2 ---
Documented by User: Marielle Kennedy NP 09/21/24 14:22 HPI - Anesthesia Eval Consult details Narrative: 59yo F for ?Gastrectomy Sleeve - EGD, possible diaphragmatic hernia, possible ventral hernia, possible open BMI 37.4 PMFSH Active Problems Active Problems: All Active Problems H. pylori infection (Acute) Colon cancer screening (Acute) Impaired glucose tolerance (Acute) Morbid obesity (Acute) Dyspnea on exertion (Acute) Epigastric pain (Acute) Iliotibial band syndrome (Acute) Lisha-menopausal (Acute) Plantar fasciitis, right (Acute) History of total right knee replacement (Acute) Status post total knee replacement, left (Acute) Right-sided chest pain (Acute) Annual physical exam (Acute) Constipation (Acute) Macromastia (Acute) Hypercholesterolemia (Acute) Steatosis, liver (Acute) Peripheral vascular disease (Acute) IBS (irritable bowel syndrome) (Acute) Obesity (BMI 30-39.9) (Acute) GERD (gastroesophageal reflux disease) (Acute) Past Medical History Medical History Fatty liver Steatosis, liver Osteoarthritis of right knee History of anemia History of vitamin D deficiency Hx of low back pain IBS (irritable bowel syndrome) Anxiety and depression Psoriasis Fibromyalgia Migraine Recurrent major depression Peripheral vascular disease Osteoarthritis Obesity (BMI 30-39.9) GERD (gastroesophageal reflux disease) Primary osteoarthritis of left knee COVID-19 Pneumonia Family History Family History Father Diabetes Hypertension Mother Myocardial infarct Sister Myocardial infarct Daughter Migraine Daughter Migraine Other CVA (cerebral vascular accident) Family history of problems with anesthesia: No Surgical History Surgical History History of esophagogastroduodenoscopy (EGD) (08/10/24) History of total left knee replacement History of laparoscopic cholecystectomy History of endoscopy History of colonoscopy History of total right knee replacement (TKR) History of bunionectomy of both great toes S/P right unicompartmental knee replacement History of foot surgery History of tubal ligation History of arthroscopy of both knees S/P cholecystectomy History of Problems with Anesthesia: No Social History Social History Household Members: Spouse and Family Housing: House Are you a primary child care group leader to a significant other at home: No Do you presently have visiting nurse or other home services: No Alcohol intake: current Alcohol intake frequency: holidays/special occasions only Comment: once q 3 months 1 glass Patient Tobacco Use Status: Former Tobacco user Tobacco use type: Cigarette Years Smoked: 2009 quit e-Cigarette/Vaping Use: Never Used Second Hand Smoke Exposure: No Advance Directives Date on File: 06/11/10 service: No Current occupational status: employed Cognitive needs: No Hearing needs: No Vision needs: Yes Meds Allergies Allergy/AdvReac Type Severity Reaction Status Date / Time ibuprofen [IBUPROFEN] Allergy Unknown GI UPSET Verified 09/11/24 11:07 Home Medications ?Medication ?Instructions ?Recorded ?Confirmed ?Last Taken ?Type [id number]-dhvrccwymwfst-nkvckgyf 250 1 tab PO Q4-6H PRN Migraine 07/20/21 09/12/24 Unknown History mg-250 mg-65 mg tablet (Excedrin Headache Migraine) multivitamin 1 tab PO DAILY 06/26/24 09/12/24 Unknown History Exam Height,Weight and Vital Signs: Height 5 ft 5 in Weight 102.058 kg Pertinent Lab Results Pertinent Lab Results: Laboratory Tests 09/17/24 09/17/24 07:05 07:14 WBC 5.4 RBC 4.51 Hgb 13.2 Hct 38.6 MCV 85.6 MCH 29.3 MCHC 34.2 RDW 14.1 Plt Count 186 MPV 12.6 H Immature Gran % (Auto) 0.2 Neut % (Auto) 54.6 Lymph % (Auto) 34.1 [place] % (Auto) 8.5 Eos % (Auto) 2.2 Baso % (Auto) 0.4 Lymph # (Auto) 1.9 [place] # (Auto) 0.5 Eos # (Auto) 0.1 Baso # (Auto) 0.0 Abs Immat Gran (auto) 0.01 Absolute Neuts (auto) 3.0 Absolute Nucleated RBC 0.000 Nucleated RBC % (auto) 0.0 PT 11.5 INR 1.0 APTT 30.9 Sodium 141 Potassium 4.4 Chloride 109 H Carbon Dioxide 23 Anion Gap 13 BUN 16 Creatinine 0.77 Estim Creat Clear Calc 95.5 Estimated GFR > 60 Random Glucose 89 Estimat Average Glucose 117 Hemoglobin A1c % 5.7 Insulin Level 8 Calcium 9.1 Total Bilirubin 0.4 AST 31 ALT 21 Alkaline Phosphatase 86 C-Reactive Protein 0.53 H Total Protein 7.8 Albumin 4.4 Triglycerides 104 Cholesterol 174 LDL Cholesterol, Calc 100 H HDL Cholesterol 54 TSH 1.43 Blood Type A Positive Antibody Screen NEGATIVE Narrative Narrative: EKG 06/2024 Vent. Rate : 74 BPM Atrial Rate : 74 BPM P-R Int : 148 ms QRS Dur : 80 ms QT Int : 374 ms P-R-T Axes : 19 6 -2 degrees QTcB Int : 415 ms Normal sinus rhythm Minimal voltage criteria for LVH, may be normal variant ( R in aVL ) Borderline ECG When compared with ECG of 03-Aug-2021 12:23, No significant change was found Exercise Stress 2023 Protocol: MOOK Max HR: 142 BPM 87% of Pred: 163 BPM Max BP: 140/080 mmHG Max Work Load: 7.0 METS Exercise stress test with exercise 5 mins 2 secs of Mook Protocol, acheiving 86% MPHR, with reports of moderate SOB, with 7/10 right sided chest tenderness that is reproducible, quickly resolved, without any arrythmias, with normotensive response to exercise. Without EKG changes meeting criteria for ischemia. In recovery, pt feeling back to baseline. Test reviewed with Dr. Adame. Assessment and Plan Assessment Anesthesia Assessment: Chart Reviewed Final Anesthetic Review Family History of Problems with Anesthesia: No History of Problems with Anesthesia: No Documented by User: Micaela Eugene MD 09/25/24 13:09 [facility] Active Problems Active Problems: All Active Problems H. pylori infection (Acute) Colon cancer screening (Acute) Impaired glucose tolerance (Acute) Morbid obesity (Acute) Dyspnea on exertion (Acute) Epigastric pain (Acute) Iliotibial band syndrome (Acute) Lisha-menopausal (Acute) Plantar fasciitis, right (Acute) History of total right knee replacement (Acute) Status post total knee replacement, left (Acute) Right-sided chest pain (Acute) Annual physical exam (Acute) Constipation (Acute) Macromastia (Acute) Hypercholesterolemia (Acute) Steatosis, liver (Acute) Peripheral vascular disease (Acute) IBS (irritable bowel syndrome) (Acute) Obesity (BMI 30-39.9) (Acute) GERD (gastroesophageal reflux disease) (Acute) Past Medical History Medical History Fatty liver Steatosis, liver Osteoarthritis of right knee History of anemia History of vitamin D deficiency Hx of low back pain IBS (irritable bowel syndrome) Anxiety and depression Psoriasis Fibromyalgia Migraine Recurrent major depression Peripheral vascular disease Osteoarthritis Obesity (BMI 30-39.9) GERD (gastroesophageal reflux disease) Primary osteoarthritis of left knee COVID-19 Pneumonia Family History Family History Father Diabetes Hypertension Mother Myocardial infarct Sister Myocardial infarct Daughter Migraine Daughter Migraine Other CVA (cerebral vascular accident) Surgical History Surgical History History of esophagogastroduodenoscopy (EGD) (08/10/24) History of total left knee replacement History of laparoscopic cholecystectomy History of endoscopy History of colonoscopy History of total right knee replacement (TKR) History of bunionectomy of both great toes S/P right unicompartmental knee replacement History of foot surgery History of tubal ligation History of arthroscopy of both knees S/P cholecystectomy Social History Social History Household Members: Spouse and Family Housing: House Are you a primary child care group leader to a significant other at home: No Do you presently have visiting nurse or other home services: No Alcohol intake: current Alcohol intake frequency: holidays/special occasions only Comment: once q 3 months 1 glass Patient Tobacco Use Status: Former Tobacco user Tobacco use type: Cigarette Years Smoked: 2009 quit e-Cigarette/Vaping Use: Never Used Second Hand Smoke Exposure: No Advance Directives Date on File: 06/11/10 service: No Current occupational status: employed Cognitive needs: No Hearing needs: No Vision needs: Yes Meds Allergies Allergy/AdvReac Type Severity Reaction Status Date / Time ibuprofen [IBUPROFEN] Allergy Unknown GI UPSET Verified 09/11/24 11:07 Home Medications ?Medication ?Instructions ?Recorded ?Confirmed ?Last Taken ?Type sftmpek-ainmqcbsxexsm-vxynncbl 250 1 tab PO Q4-6H PRN Migraine 07/20/21 09/12/24 Unknown History mg-250 mg-65 mg tablet (Excedrin Headache Migraine) multivitamin 1 tab PO DAILY 06/26/24 09/12/24 Unknown History Exam Airway Mallampati Class: II TM Dist: >3cm Neck ROM: Full Loose/Missing/Broken Teeth: No Heart: RRR Lungs: CTA Assessment and Plan Assessment Anesthesia Assessment: Anesthesia Plan Discussed Final Anesthetic Review NPO: Yes ASA Class: II Final Preanesthetic Review: Meds/Allgs Chart Reviewed, Consent Obtained/Reviewed and Anes Risks/Benef Reviewed Patient Risk: Low Procedure Risk: Intermediate Anesthetic Plan Anesthetic Plan: GA Disposition: Standard PACU
[2024-09-25] VITALS (15 sets, daily range): BP systolic 100–135; BP diastolic 59–77; PULSE 64–80; RESP 14–20; TEMP 36.1–36.8; O2SAT 93–98; BMI 35.2; BMI 37.0
[2024-09-25] MEDS: Lactated Ringers 1,000 ML 999 ML IV (11:21)
[2024-09-25] MEDS: Aprepitant 32 MG/4.4 ML VIAL IVPUSH (11:26)
--- NOTE | 2024-09-25 12:08 | MHC.SHP ---
Pre-Procedural Eval Section A - 24 Hr Update-Section A only Date of Service: 09/25/24 The patient is an INPATIENT: Yes The patient has been examined within 24 hours of the surgical procedure. The History & Physical has been completed within 30 days and I have reviewed it.: Yes Section B - Complete if H&P > 30 days Chief Complaint: Obesity Relevant Family History (Specify if Yes): No Relevant Social History: None Present Medications: None Medical History: No relevant PMH History of Previous Operations: No relevant previous surgery Allergies: Allergies Allergy/AdvReac Type Severity Reaction Status Date / Time ibuprofen [IBUPROFEN] Allergy Unknown GI UPSET Verified 09/11/24 11:07 Review of Systems Sugical H&P ROS: Negative: Constitution, Cardiovascular, Respiratory, Neurological, Psychiatric, Hem-Onc, Allergic/Immunologic, Gastrointestinal, Genitourinary, Musculoskeletal, Integumentary, Endocrine and Eyes/Ears/Nose/Throat Exam Surgical H&P Exam: Normal: HEENT, Normal: Heart, Normal: Lungs, Normal: Extremities, Normal: Abdomen, Normal: Skin and Normal: Neurological Plan Diagnosis/Plan: Unchanged I have reviewed the history and physical and performed a pertinent physical examination on my patient. No changes have occurred unless specified. Time Spent With Patient Time: Total time managing care of this patient today ____ minutes.
--- NOTE | 2024-09-25 12:09 | P.BOP_ITS ---
Brief Operative Note Date of Service: 09/25/24 Pre-op diagnosis: Severe obesity with comorbidities (see below) Post-op diagnosis: same Procedure: INITIAL PATIENT BMI ON PRESENTATION AT OUR OFFICE: 40.1 kg/m2 LAST BMI BEFORE SURGERY: 35.9 kg/m2 COMORBIDITIES: GERD, migraines, liver steatosis ?The patient presented to the Weight Management Program with significant obesity that was negatively impacting the patient's comorbidities as listed above.? The program is a phased program with a special focus on preoperative medical weight management to promote substantial weight loss and prepare the patients for the second phase of the program: bariatric surgery. The patient participated in an intensive weekly lifestyle ?intervention and exercise program during which the patient ?has lost between the initial office visit and the last preoperative visit 25lbs, or 10.4% of initial actual body weight. It was deemed appropriate for the patient to now have bariatric surgery. In light of the current Covid-19 pandemic and the well documented strong association of obesity and increased risk of worse outcomes if infected with Covid-19 (REFERENCES: https://pubmed.ncbi.nlm.nih.gov/72700109/ ,? https://pubmed.ncb i.nlm.nih.gov/26388622/ ), any delay in undergoing bariatric surgery may lead to the patient's worsening health condition and increased?risk of more severe Covid-19 disease if infected. In addition a recent?study from [facility] published in [employer] Surgery on 04/13/2021 ([email or web address]) found that, among patients with obesity, substantial weight loss achieved with surgery was associated with improved outcomes of COVID-19 infection. The findings suggest that obesity can be a modifiable risk factor for the severity of COVID-19 infection. In addition, the patient met the BMI-criteria for bariatric surgery based on the BMI on initial presentation. The patient should not be penalized for achieving such weight loss because ?it is not sustainable long-term without surgical intervention and it was achieved in preparation for bariatric surgery ?under my direction and based on my published research (file :///[email or web address]).[email or web address] and? https://www.soard.org/article/[email or web address](06)77128-X/pdf ) ?that a 10% preoperative weight loss improves long-term weight loss after surgery and reduces perioperative complications.? Insurance carriers such as [facility] have endorsed my recommendations ?and have included in their policies criteria to include a 10% preoperative weight loss requirement. PROCEDURE: Esophago-gastroscopy, laparoscopic sleeve gastrectomy and laparoscopic gastropexy INDICATIONS: This is a 59 year-old female who was electively scheduled for laparoscopic, possibly open sleeve gastrectomy. The risks and complications of the procedure were discussed with the patient in advance, particularly the possibility of ; pulmonary embolism; staple line leak; bleeding; GERD; cardiac, pulmonary, or renal complications; as well as long-term problems such as insufficient weight loss, vitamin deficiency, strictures, or ulcers. The patient understood all the risks, and was in agreement to proceed with surgery. DESCRIPTION OF PROCEDURE: After informed consent was obtained from the patient, the patient was given preoperative antibiotics, and was transferred to the operating room. After successful induction of general anesthesia, pneumatic compression devices were placed on both lower extremities. An upper endoscopy was performed next. The oropharynx and esophagus appeared to be within normal limits. There was no diaphragmatic hernia present. The stomach was entered. Then after all fluid and air were suctioned and the stomach was fully decompressed, the scope was withdrawn and secured in the mid esophagus. The patient was then prepped and draped in the usual sterile manner, and abdominal access was established at the right upper quadrant with the Kiana technique. A 12 mm blunt port was inserted, and the abdomen was insufflated with CO2 to a pressure of 15 mmHg. Under direct visualization, additional ports were placed, specifically two 5 mm Versi-step ports to the left upper quadrant, and a 5 mm Versi-Step port to the right upper quadrant. 1% lidocaine plain was used to infiltrate all port sites as well as all fascia defects. Following that, the patient was placed in a steep reverse Trendelenburg position. An additional 5 mm port was placed to the right flank for the Mediflex retractor that was used to retract the left lobe of the liver. The gastro-esophageal fat pad was opened with the ultrasonic device (Thjacksonerbeat, Olympus) and the anterior esophagus and hiatus were exposed. The angle of His was opened with the ultrasonic device the fundus of the stomach from any diaphragmatic and splenic attachments. I then opened the gastrocolic ligament between the transverse colon and the greater curvature of the stomach with the ultrasonic device to enter the lesser sac and facilitate the ligation of the short gastric vessels. I started at a mid-point along the greater curvature and using the Thunderbeat, all short gastric vessels were divided all the way to the angle of His until the left karlos was completely dissected at its entirety. I then divided the gastro-colic ligament distally to a distance of about 3-4 cm proximal to the pylorus.? The stomach was then divided transversely with one Endo LIZBETH-45 purple and three LIZBETH-60 articulating purple loads using the HunterOn stapler and loads. Every ef fort was made that the gastric sleeve had a tubular shape and an even caliber throughout. Once the sleeve resection was completed, the staple line of the gastric sleeve was reinforced with Hemoclips. The resected stomach was retrieved without difficulty from the Kiana port. A gastropexy was then performed in order to prevent postoperative GERD and partial gastric volvulus. Several interrupted 2.0 Surgidac sutures were placed between the sleeve's staple line and the previously divided greater omentum and gastro-colic ligament using the Endo-Stitch device. ?An upper endoscopy was performed. There was no narrowing at the GE junction. The scope was easily advanced all the way to the pylorus which was clearly visualized. There was no narrowing anywhere and the sleeve's caliber was even throughout. The sleeve's staple line was inspected and there was no evidence of ischemia, bleeding or dehiscence. At that point the gastroscope was withdrawn from the patient?s mouth while we were decompressing the bowel and the stomach from any remaining air. I looked into the lesser sac to see how the sleeve was situating and it was situating well. There was no bleeding from the staple line, spleen, or short gastric vessels. The Mediflex retractor was removed, and the undersurface of the liver was inspected and there was no bleeding. The patient was placed in supine position. I closed the fascial defect of the 12 mm port site with a figure of eight #1 Polysorb suture. Then 30cc Ropivacaine plain with 10 mg of Dexamethasone were used to infiltrate the fascial closure as well as all skin incisions. At this point, the abdomen was deflated, all ports were removed under direct vision, and no bleeding was noted from any of the port sites. The skin incisions were irrigated with saline and were closed with 4-0 absorbable monofilament sutures. Steri-Strips and OpSites were used to cover all incisions. The patient was extubated and was transferred in stable condition to the recovery room for further care. I was present and performed all sahu parts of the procedure. Winnie Clark was the waiter/waitress first class. There were no residents to assist with this case. Tong Crabtree MD, PhD, FACS Surgeon: Anthony Crabtree MD Anesthesia: GETA, local and other (TAP block) Was an Proofer used for this Procedure?: Yes Proofer: Andrea Zhou Estimated blood loss (mL): 10 IV fluids (mL): 2,000 Urine output (mL): 0 (No Sanchez to record output) Pathology: other (1) Stomach, 2) Gastro-esophageal fat pad) Condition: stable Disposition: PACU
--- NOTE | 2024-09-25 12:14 | P.PNGS_ITS ---
Subjective Subjective Date of Service: 09/25/24 Interval history: Feels well. Mild incisional pain. She is tolerating phase 1 bariatric diet Physical Exam 2 Vital Signs: Vital Signs: Last Vital Signs Temp 97.6 F 09/25/24 11:11 Pulse 74 09/25/24 11:11 Resp 16 09/25/24 11:11 BP 111/61 09/25/24 11:11 Pulse Ox 96 09/25/24 11:11 O2 Del Method Room Air 09/25/24 11:11 BMI result Body Mass Index 35.2 GI: Inspection: Yes normal to inspection, Yes incision (clean, dry and intact) and Yes obesity Palpation (GI): Soft to palpation Extrem: Right lower extremity: normal to inspection (mart calf tenderness) L eft lower extremity: normal to inspection (no calf tenderness) Objective Data Active Medications Lactated Ringer's (Lr) 1,000 mls @ 100 mls/hr IVCONT .Q10H CASEY Lactated Ringer's (Lr) 1,000 mls @ 999 mls/hr IV .Q1H1M CASEY Stop: 09/25/24 12:45 Last Admin: 09/25/24 11:21 Dose: 999 mls/hr Documented By: VAL Labs 09/25/24 15:45 09/25/24 15:45 Procedures Date of Service Date of Service: 09/25/24 Progress Note: A&P Assessment and plan (1) Obesity (BMI 30-39.9): Status: Acute Assessment and Plan: s/p laparoscopic sleeve gastrectomy and gastropexy Doing well Will check am labs and if OK the patient will be discharged home (2) BMI 35.0-35.9,adult: Status: Acute (3) GERD (gastroesophageal reflux disease): Status: Acute (4) Steatosis, liver: Status: Acute (5) S/P laparoscopic sleeve gastrectomy: Status: Acute Time Spent With Patient Time: Total time managing care of this patient today ____ minutes. Quality Stroke Does the patient have a stroke diagnosis?: No VTE Prior VTE?: No VTE Risk Level:: Surgical - moderate VTE Device Contraindication: N/A - Device Ordered VTE Drug Contraindication: Treatment Not Indicated
--- NOTE | 2024-09-25 12:24 | PHA.MEDREC ---
Pharmacy Consult ? Medication Reconciliation Pharmacy has REVIEWED the medication reconciliation COMPLETED BY NURSING.
[2024-09-25] MEDS: ceFAZolin Sodium/Dextrose,Iso 2 GM/50 ML PIGGYBACK IV ×2 (12:55→18:00)
--- NOTE | 2024-09-25 14:29 | PM.DS ---
DS: Providers Provider Date of Service: 09/26/24 Date of admission: 09/25/24 10:38 Date of discharge: 09/26/24 Primary care physician: Negra Herrera MD DS: Diagnosis Discharge Diagnosis (1) Obesity (BMI 30-39.9): Status: Acute (2) BMI 35.0-35.9,adult: Status: Acute (3) GERD (gastroesophageal reflux disease): Status: Acute (4) Steatosis, liver: Status: Acute DS: Summary Hospital Course Hospital Course: ADMITTING DIAGNOSIS: obesity, arthritis, PVD, HLD, ibs ? DISCHARGE DIAGNOSIS: same, s/p laparoscopic sleeve gastrectomy ? PAST SURGICAL HISTORY: B TKR, CCY, tubal ligation, foot surgery ? PROCEDURE: upper endoscopy, laparoscopic sleeve gastrectomy ? DISCHARGE SUMMARY: ? History of Present Illness: ? The patient is a?59 year-old woman with a BMI of?40.1 kg/m2 and associated co-morbidities as described above. The patient had extensive work-up,lost?25 lbs preoperatively and was electively scheduled for laparoscopic, possible open sleeve gastrectomy and gastropexy. Risks and complications of the surgery were discussed with the patient in advance, particularly the possibility of , pulmonary embolism, anastomotic leak, bleeding, bowel injury, GERD, cardiac, renal or pulmonary complications. The patient understood all the risks and was in agreement with the surgical plan. ? Hospital Course: ? The patient underwent an uneventful laparoscopic sleeve gastrectomy with gastropexy on the day of admission. Postoperatively, the patient was transferred to the surgical floor. The patient received IV Acetaminophen and IV dilaudid for pain control. Patient was started on bariatric phase 1 diet POD #0. On postoperative day one, the patient was feeling well without nausea, vomiting, fevers, or tachycardia. The patient had some mild incisional pain and the abdomen was soft. ? On the morning of postoperative day one, the patient was continued on 1 ounce of water or ice every half hour. During the day, the patient did fairly well, having some incisional pain, but able to ambulate adequately and to tolerate liquids well. ? Since the patient is doing well, we decided that the patient was ready to be discharged. The patient was given instructions to follow-up with me next week and to call my office for any fever over 101, persistent abdominal pain, nausea, vomiting, GERD, symptoms of DVT such as calf tenderness, or leg swelling, or pulmonary embolism such as chest pain or shortness of breath. The patient was also instructed to drink 40-60 ounces of liquids per day using the 1-ounce cups. The patient had been given prescriptions for Tylenol for pain, Zofran prn for nausea, and pantoprazole and carafate previously. The patient was encouraged to ambulate and use the incentive spirometer. The patient was allowed to shower, but no baths, and encouraged to stay active at home. All of these instructions were given to the patient personally. All questions were answered and the patient understood all instructions, the instructions were also given to the patient in print. Time Attestation Total time managing care of this patient today: 25 mintues. Discharge Coordination Time (in mins): 25 Quality: Safe Use of Opioids Does Pt have an Active Cancer Diagnosis on the Problem List?: No Quality: Stroke Does the patient have a stroke diagnosis?: No Physical Exam Vital Signs: Vital Signs: Last Vital Signs Temp 97.6 F 09/25/24 11:11 Pulse 74 09/25/24 11:11 Resp 16 09/25/24 11:11 BP 111/61 09/25/24 11:11 Pulse Ox 96 09/25/24 11:11 O2 Del Method Room Air 09/25/24 11:11 BMI result Body Mass Index 35.2 DS: Data Data Completed and Pending Completed studies during hospitalization [Text1]: Procedures Replacement of Left Knee Joint with Synthetic Substitute, Uncemented, Open Approach (09/01/21) Pending studies at discharge: Pending at discharge 09/25/24 14:01 Surgical [PTH] Routine Discharge Plan Discharge Anticipated Discharge Date/Time: 09/26/24 10:00 Patient Disposition: Home, Self-Care Discharge Diagnosis: s/p laparoscopic sleeve gastrectomy Referrals: Po,Negra Mcpherson MD [Primary Care Provider] - 1 Week Discharge Medications: Continued cholecalciferol (vitamin D3) 50 mcg (2,000 unit) capsule 50 mcg PO DAILY 90 Days Qty: 90 3RF multivitamin Tablet 1 tab PO DAILY pantoprazole 40 mg tablet,delayed release (DR/EC) 40 mg PO DAILY Qty: 90 0RF sucralfate 100 mg/mL suspension 10 ml PO BID Qty: 600 2RF ondansetron 4 mg tablet,disintegrating 4 mg PO Q12H Qty: 20 0RF Rx Instructions: Only take one every 12 hours as needed if you have nausea Held Excedrin Migraine 250-250-65 mg tablet 1 tab PO Q4-6H PRN (Reason: Migraine Headache) Hold Instructions: until discussed with Dr Crabtree Discharge Orders: Discharge Order (Routine); Ordered 09/26/24 Ordered By: Andrea Zhou Activity on Discharge: No heavy lifting Stand Alone Forms: Patient Portal Discharge page Print Language: East Timorese Care Plan Goals: weight loss Health Concerns: obesity Plan of Treatment: No tub baths, sex or returning to work until discussed at first post op appointment. No exercise, alcohol, tobacco or illegal drug use. Continue to use incentive spirometer hourly while awake. Walk in home for 5- 10 minutes every 2 hours during the first week. Follow all instructions in the bariatric handbook and call with any questions.Discharge Instructions 1. Please call your doctor or come back to the emergency room should any new symptoms arise. 2. You will receive a courtesy call from [facility] 24-48 hours after discharge. 3. Activity: abstain from alcohol, practice limited stair climbing, no bending, no driving, no exercise, no illicit substances, no lifting, no sex, no tub bath, no work. 4. Diet: continue as discussed with Dr. Crabtree. 5. Dressing Change/Wound Care: Your incision is covered by clear bandages and guaze underneath. If the area is tender, you may apply an ice pack for short intervals (no more than 20 minutes on, followed by at least 20 minutes off). Do not apply heat. Do not use creams, lotions, or topical antibiotics unless instructed to do so by your surgeon. These can cause infection or allergic reaction. 6. Call your doctor if: - Your temperature exceeds 101.5 F - You experience excessive pain or swelling - You have an unexpected reaction to medication - You have excessive bleeding - You experience continued vomiting/nausea - Your incision begins to separate - Your incision shows signs of infection such as increased redness, swelling, excessive pain, heat, or drainage (light blood or clear fluid is normal) 7. General instructions: No lifting greater than 5 lbs for 1 week and not more than 20lbs the next 3?weeks. No driving until seen at the office in 5-7 days after surgery. If you do not move your bowels in the next 2 days, please tell?Dr. Crabtree. Please walk around your home every hour or two to prevent blood clots from forming in your legs. You do not need to wake from sleeping to walk. Please sleep in a bed or couch to prevent kinking at the hips and knees. Please take your incentive spirometer (your lung mandarin teacher) home with you and use it for the next few days to prevent pneumonia. You may shower, no hot tubs, baths or swimming pools.?Please follow the post op diet instructions you are?given by Dr Crabtree? and text me daily at 5-6pm for an update.?If you have any issues or concerns or questions please communicate this to him via text.? The Celebrate shakes have all of the bariatric vitamins you need if you consume these shakes. If you are drinking other protein shakes, you will need to purchase the Celebrate multivitamins and calcium that are available in the hospital gift shop on the first floor of the [facility].??Do not take anything without first discussing with Dr Crabtree. Please make sure you are consuming at least 40 ounces of fluids per day starting the?day AFTER your discharge from the hospital. Always drink 1-2 ml per minute using the 5ml?syringe. If you drink faster you may experience?bloating,?gas pain, burping, nausea or heartburn. In that case please slow down your pace and use the syringe to?understand better the?proper?pace and volume of drinking. Do not hesitate to contact the office with any questions at . The patient's medical history has been reviewed and they are considered low risk for post op DVT and therefore DVT prophylaxis is not considered necessary. Travel after surgery was reviewed. The patient has not disclosed any travel plans during the first 30 days after surgery and they have been advised that within the first 30 days after surgery any bus, plane, train or car travel over 2 hours in duration is contraindicated due to the possibility of developing blood clots from immobility. Any travel, needs to include periods of ambulation of 10 minutes in duration every 2 hours.? The patient was instructed to discuss any plans for travel during this period with their bariatric surgeon. Assessment: stable s/p laparoscopic sleeve gastrectomy
[2024-09-25] MEDS: ondansetron HCL 4 MG/2 ML VIAL IVPUSH (14:40)
[2024-09-25 15:51] LABS: Hemoglobin 13.3 g/dl (12.0-16.0)
[2024-09-25 16:02] LABS: Anion Gap 17 (12-20); Blood Urea Nitrogen 10 mg/dL (9-16); Calcium 8.6 mg/dL (8.4-10.2); Carbon Dioxide 19 mmol/L (22-29); Chloride 107 mmol/L (96-108); Creatinine Clr Calc Pharmacy 107.7; Estimated Glomerular Filt Rate > 60; Glucose Random 81 mg/dL (60-115); Sodium 139 mmol/L (135-145)
[2024-09-25] MEDS: HYDROmorphone HCl 0.5 MG/0.5 ML SYRINGE 0.25 MG IVPUSH ×2 (16:22→16:30)
[2024-09-25] MEDS: 0.9 % Sodium Chloride Flush 3 ML SYRINGE IVFLUSH (17:45)
[2024-09-25] MEDS: Lactated Ringers 1,000 ML 100 ML IVCONT (18:00)
[2024-09-25] MEDS: Metoclopramide HCl 10 MG/2 ML VIAL IVPUSH (18:43)
[2024-09-25] MEDS: Acetaminophen 1,000 MG/100 ML PIGGYBACK 16.7 MG IV (20:59)
[2024-09-26] MEDS: Acetaminophen 1,000 MG/100 ML PIGGYBACK 16.7 MG IV (02:56)
[2024-09-26] MEDS: Lactated Ringers 1,000 ML 100 ML IVCONT (03:00)
[2024-09-26 03:31] VITALS: BP 100/52; PULSE 63; RESP 18; TEMP 36.6; O2SAT 95
[2024-09-26] MEDS: Pantoprazole Sodium 40 MG/10 ML VIAL IVPUSH (05:40)
[2024-09-26 06:42] LABS: MANUAL DIFF FLAG NO
[2024-09-26 07:00] LABS: Anion Gap 16 (12-20); Blood Urea Nitrogen 9 mg/dL (9-16); Calcium 8.8 mg/dL (8.4-10.2); Carbon Dioxide 20 mmol/L (22-29); Chloride 107 mmol/L (96-108); Creatinine Clr Calc Pharmacy 112.5; Estimated Glomerular Filt Rate > 60; Glucose Random 111 mg/dL (60-115); Potassium 4.5 mmol/L (3.3-5.1); Sodium 138 mmol/L (135-145)
[2024-09-26 07:05] VITALS: BP 111/66; PULSE 76; RESP 16; TEMP 36.6; O2SAT 97
[2024-09-26 07:15] LABS: Basophils Percent Auto 0.1 % (0-2); Hematocrit 40.6 % (37.0-47.0); Hemoglobin 13.4 g/dl (12.0-16.0); Imm Gran Abs Auto 0.04 X10*3/uL (0.00-0.03); Imm Gran Pct Auto 0.5 % (0.0-0.4); Lymphocytes Absolute Auto 1.1 X10*3/uL (1.2-4.9); Lymphocytes Percent Auto 13.7 % (20-40); Mean Corpuscular Hemoglobin 28.9 pg (27.0-33.0); Mean Corpuscular Volume 87.7 fL (80.0-98.0); Mean Platelet Volume 12.6 fL (9.4-12.3); Monocytes Absolute Auto 0.2 X10*3/uL (0.1-1.2); Monocytes Percent Auto 2.5 % (2-11); Neutrophils Absolute Auto 6.4 x10*3/uL (2.0-8.3); Neutrophils Percent Auto 83.2 % (45-73); Platelet Count 166 X10*3/uL (160-400); Red Blood Count 4.63 X10*6/uL (4.20-5.50); Red Cell Distribution Width 13.9 % (11.0-16.0); White Blood Count 7.7 X10*3/uL (4.8-10.8)
--- NOTE | 2024-09-26 09:33 | MHC.CM.PN ---
Patient dc'd home self care via private transport prior to CM assessment
--- NOTE | 2024-09-26 10:14 | HO.POSTANES ---
Post Anesthesia Evaluation Post Anesthesia Evaluation Date of Service: 09/26/24 Vital Signs: Vital Signs Temp Pulse Resp BP Pulse Ox O2 Del Method 09/26/24 07:05 97.9 F 76 16 111/66 97 Room Air 09/26/24 03:31 97.8 F 63 18 100/52 L 95 Room Air 09/25/24 23:19 98.2 F 73 18 100/65 96 Room Air Anesthesia: General Endotracheal-GETA Mental Status: Awake Pain Control: Satisfactory Nausea/Vomiting: None Hydration: Adequate Anesthesia-Related Issues: No Anes. Related Issues
== END 2024-09-26 09:15 | disposition home or self-care (01) | DRG 403 ==
LOC: HO.SSSA 14:32 → HO.S3 16:44
PROVIDERS: Physician Assistant Surgical; Admitting Provider Surgery; PCP Internal Medicine; Visit Provider Surgery
PROC: 0DB64Z3 Excision of Stomach, Percutaneous Endoscopic Approach, Vertical (ICD-10-PCS; CPT 43845; principal; 2024-09-25 13:10)
DX: E66.01 Morbid (severe) obesity due to excess calories (principal); K76.0 Fatty (change of) liver, not elsewhere classified; G43.909 Migraine, unspecified, not intractable, without status migrainosus; K21.9 Gastro-esophageal reflux disease without esophagitis; Z87.891 Personal history of nicotine dependence; Z68.35 Body mass index [BMI] 35.0-35.9, adult; Z79.899 Other long term (current) drug therapy
CPT/HCPCS: 36415; 80048; 80053; 80061; 83036; 83525; 84443; 85014; 85018; 85025; 85610; 85730; 86140; 86850; 86900; 86901; 88304; 88305; 88307; 88342; A4649; C9145; J0131; J0690; J1100; J1171; J2003; J2250; J2405; J2470; J2704; J2765; J2795; J3010; J7120

== ENCOUNTER → 2024-09-25 10:38 | Outpatient (BNV) | payer OTHER, SELFPAY | PROVIDERS: Admitting Provider Surgery; PCP Internal Medicine; Visit Provider Surgery | DX: E66.9 Obesity, unspecified (principal); Z68.35 Body mass index [BMI] 35.0-35.9, adult; K21.9 Gastro-esophageal reflux disease without esophagitis; K76.0 Fatty (change of) liver, not elsewhere classified | CPT/HCPCS: 43659; 43775; 99499 ==

== ENCOUNTER 2024-10-03 08:14 | Outpatient (AMB) | payer OTHER, SELFPAY ==
--- NOTE | 2024-10-03 08:05 | A.OFFWM_ITS ---
Intake Intake Visit Reasons: TV PO LSG 09/25/24 Allergies ibuprofen (IBUPROFEN) Allergy (Unknown, Verified 09/11/24 11:07) GI UPSET PFSH Medical History Fatty liver Steatosis, liver Osteoarthritis of right knee History of anemia History of vitamin D deficiency Hx of low back pain IBS (irritable bowel syndrome) Anxiety and depression Psoriasis Fibromyalgia Migraine Recurrent major depression Peripheral vascular disease Osteoarthritis Obesity (BMI 30-39.9) GERD (gastroesophageal reflux disease) Primary osteoarthritis of left knee COVID-19 Pneumonia Surgical History History of esophagogastroduodenoscopy (EGD) (08/10/24) History of total left knee replacement History of laparoscopic cholecystectomy History of endoscopy History of colonoscopy History of total right knee replacement (TKR) History of bunionectomy of both great toes S/P right unicompartmental knee replacement History of foot surgery History of tubal ligation History of arthroscopy of both knees S/P cholecystectomy Family History Father Diabetes Hypertension Mother Myocardial infarct Sister Myocardial infarct Daughter Migraine Daughter Migraine Other CVA (cerebral vascular accident) Social History Household Members: Spouse Housing: House Are you a primary rn wound care to a significant other at home: No Do you presently have visiting nurse or other home services: No Alcohol intake: current Alcohol intake frequency: holidays/special occasions only Patient Tobacco Use Status: Former Tobacco user Tobacco use type: Cigarette Years Smoked: 2009 quit e-Cigarette/Vaping Use: Never Used Second Hand Smoke Exposure: No Advance Directives Date on File: 06/11/10 service: No Current occupational status: employed Cognitive needs: No Hearing needs: No Vision needs: Yes Behavioral Health Assessment Weight Management Therapy Therapy Notes Details Subjective: Patient underwent weight loss surgery on 09/25/2024. She reports no pain post- operatively and describes her recovery as smooth and going well. Patient denies any concerns regarding mood or overall mental health at this time. Objective: Patient attended a post-operative behavioral health (BH) follow-up via telehealth. Discussion included current functioning, post-operative recovery, and ongoing needs. Provided support around lifestyle changes and explored strategies for building long-term discipline to support sustained weight loss. Explored the role of internal versus external motivation, emphasizing the importance of utilizing the first year post-surgery as a critical window for change. Patient was encouraged to make use of available resources, including the peer support group, Facebook group for post-operative patients, behavioral health services as needed, and to continue attending [facility] maintenance visits. Assessment/Response: * Mental Status: Within normal limits (WNL) * Risk Identified: None reported or observed Food/Weight/Diet Expectations of change PT started the program at 241 lbs, and the initial goal is to lose 10% of your weight before surgery, which is about 24 lbs. The ultimate weight goal is 217 lbs before surgery. PT reports her most recent weight as of 08/23/24 was 226 lbs. Weight day of surgery 09/25/2024: 211Lbs PO weight 10/03/2024: 207Lbs Target weight goal: 150Lbs PT is implementing the following: Current meal plan: Liquid plan - goal is o drink Exercise plan: started the stepper yesterday per Dr guidance. Scale: Yes. Communication w/ provider: Daily since surgery. Daren today with PA. Questionnaires PHQ-9 Over the last 2 weeks, how often have you been bothered by any of the following problems? 1. Little interest or pleasure in doing things: not at all 2. Feeling down, depressed, or hopeless: not at all 3. Trouble falling or staying asleep, or sleeping too much: not at all 4. Feeling tired or having little energy: not at all 5. Poor appetite or overeating: not at all 6. Feeling bad about yourself - or that you are a failure or have let yourself or your family down: not at all 7. Trouble concentrating on things, such as reading the newspaper or watching television: not at all 8. Moving or speaking so slowly that other people could have noticed. Or the opposite - being so fidgety or restless that you have been moving around a lot more than usual: not at all 9. Thoughts that you would be better off or of hurting yourself in some way: not at all Total score: 0 Depression Screening Interpretation: Negative Depression Screening Done: Yes 50436 - PHQ-9 Billing: Yes Source: Developed by Drs. Raffaele Bowman, Tomasa Rivas, John Gonzalez and colleagues, with an educational alexandra from [employer]. Assessment & Plan Assessment & Plan (1) Adjustment disorder: Code(s): F43.20 - Adjustment disorder, unspecified (2) S/P laparoscopic sleeve gastrectomy: Comment: 09/25/2024 Dr. Crabtree Code(s): Z98.84 - Bariatric surgery status (3) Status post bariatric surgery: Code(s): Z98.84 - Bariatric surgery status Plan Patient declined additional behavioral health visits at this time but is aware of the available support and resources should future needs arise. No further appointments are scheduled at this time. Telehealth Telehealth Telehealth Platform: [employer] Location of provider rendering services: other Location of patient: address on file Patient Identification confirmed using: Name, : Yes Telehealth method: voice only Patient verbally consented to treatment: Yes Patient verbally consented to billing insurance company: Yes Patient informed of any privacy concerns related to visit: Yes Minutes spent on Phone/Video with Pt.: 30 Coding Level of Care Code Established Pt Tele Psytx 30 mins (02842) Patient Type Established Diagnoses Adjustment disorder F43.20 S/P laparoscopic sleeve gastrectomy Z98.84 Status post bariatric surgery Z98.84 Additional Codes PHQ-9 - 11478 - PHQ-9 Billing: Yes ([id number]) Time Spent (min) 30
== END 2024-10-03 09:14 | disposition home or self-care (01) ==
LOC: HO.HBST 08:14
PROVIDERS: PCP Internal Medicine; Visit Provider Counselor Mental Health
DX: F43.20 Adjustment disorder, unspecified (principal); Z98.84 Bariatric surgery status
CPT/HCPCS: 90832

== ENCOUNTER → 2024-10-03 08:14 | Outpatient (BNVA) | payer OTHER, SELFPAY | PROVIDERS: PCP Internal Medicine; Visit Provider Counselor Mental Health ==

== ENCOUNTER 2024-10-03 13:41 | Outpatient (AMB) | payer OTHER, SELFPAY ==
--- NOTE | 2024-10-03 14:30 | A.OFFVIS_ITS ---
VS Expanded 10/03/24 14:40 BP 109/59 L Blood Pressure Location Rt brachial Blood Pressure Position Sitting Pulse 78 Pulse Source Pulse Oximeter Temp 97.5 F Temperature Source Temporal Artery Scan Pulse Oximetry 97 Oxygen Delivery Method Room Air Height 5 ft 5 in Weight 206 lb BMI 34.3 Body Fat % 40.5 Body Fat Mass 83.4 Fat Free Mass 122.6 Visceral Fat Rating 11 Body Water % 42.3 Body Water Mass 87 Muscle Mass/Score 116.4 Basal Metabolic Rate/Score 1,683 Intake Visit Reasons: (OV) PO LSG 09/25/24 Allergies ibuprofen (IBUPROFEN) Allergy (Unknown, Verified 09/11/24 11:07) GI UPSET Medication List - Last Reconciled 10/03/24 by GRICEL Monroy [id number]-[id number] 250-250-65 mg (Excedrin Migraine) 1 tab PO Q4-6H PRN Held on 09/26/24. Instructions: until discussed with Dr Crabtree ondansetron 4 mg PO Q12H pantoprazole 40 mg PO DAILY sucralfate 10 mL PO BID HPI Comments Details: Pt is s/p LSG 09/25/2024. No pain. No nausea. Tolerating 3 Celebrate shakes, 2 scoop each in 8oz UAM. Hydration is adequate- 40oz. [facility] Medical History Fatty liver Steatosis, liver Osteoarthritis of right knee History of anemia History of vitamin D deficiency Hx of low back pain IBS (irritable bowel syndrome) Anxiety and depression Psoriasis Fibromyalgia Migraine Recurrent major depression Peripheral vascular disease Osteoarthritis Obesity (BMI 30-39.9) GERD (gastroesophageal reflux disease) Primary osteoarthritis of left knee COVID-19 Pneumonia Surgical History History of esophagogastroduodenoscopy (EGD) (08/10/24) History of total left knee replacement History of laparoscopic cholecystectomy History of endoscopy History of colonoscopy History of total right knee replacement (TKR) History of bunionectomy of both great toes S/P right unicompartmental knee replacement History of foot surgery History of tubal ligation History of arthroscopy of both knees S/P cholecystectomy Family History Father Diabetes Hypertension Mother Myocardial infarct Sister Myocardial infarct Daughter Migraine Daughter Migraine Other CVA (cerebral vascular accident) Social History Household Members: Spouse Housing: House Are you a primary chronic care nurse to a significant other at home: No Do you presently have visiting nurse or other home services: No Alcohol intake: current Alcohol intake frequency: holidays/special occasions only Patient Tobacco Use Status: Former Tobacco user Tobacco use type: Cigarette Years Smoked: 2009 quit e-Cigarette/Vaping Use: Never Used Second Hand Smoke Exposure: No Advance Directives Date on File: 06/11/10 service: No Current occupational status: employed Cognitive needs: No Hearing needs: No Vision needs: Yes Physical Exam Const General: cooperative, comfortable and no acute distress Orientation/consciousness: patient oriented x3 GI Other: soft, nontender, nondistended, steri-strips c/d/i Neuro General: patient oriented x3 Assessment & Plan Assessment & Plan (1) S/P laparoscopic sleeve gastrectomy: Comment: 09/25/2024 Dr. Crabtree Code(s): Z98.84 - Bariatric surgery status Category: Surgical (2) Obesity (BMI 30-39.9): Code(s): E66.9 - Obesity, unspecified Category: Medical Plan May shower tomorrow but no bath or submersion of abdomen in water. May start exercise.? No abdominal exercises x 6 weeks. Abdominal binder for the next 2 weeks with activity or exercise. Continue meal plan per Dr Pratt Reviewed pantoprazole and carafate dosing. Reminded of the pace of drinking 2 mL/min or 1oz per 15 min. Will be emailed link for post op video for review. Return to work note provided for 10/10/2024.
[2024-10-03 14:40] VITALS: BP 109/59; PULSE 78; TEMP 36.4; O2SAT 97; BMI 34.3
== END 2024-10-03 15:01 | disposition home or self-care (01) ==
LOC: HO.HBS 13:42
PROVIDERS: PCP Internal Medicine; Visit Provider Physician Assistant Surgical
DX: E66.9 Obesity, unspecified (principal); Z68.34 Body mass index [BMI] 34.0-34.9, adult; Z90.3 Acquired absence of stomach [part of]; Z98.84 Bariatric surgery status
CPT/HCPCS: 99024

== ENCOUNTER 2024-10-22 13:55 | Outpatient (REF) | payer OTHER, SELFPAY ==
--- NOTE | ~2024-10-22 | XR_ITS ---
EXAMINATION: XR HIP, RIGHT CLINICAL INFORMATION: M25.551 - Pain in right hip COMPARISON: None available. TECHNIQUE: AP and frog-leg lateral views of the right hip. FINDINGS: Marginal osteophyte is present on the acetabular roof. No other osteophytes present. Joint spaces preserved. There is an enthesophyte on the lower portion of the greater trochanter. XR/XR hip RT min 2V IMPRESSION: Small acetabular osteophyte Electronically signed by: Jack Faulkner MD 10/22/2024 03:38 PM EDT
--- NOTE | ~2024-10-22 | XR_ITS ---
EXAMINATION: XR HAND 3 OR MORE VIEWS LEFT HISTORY: M25.532 - Pain in left wrist COMPARISON: There are no prior studies available for comparison. FINDINGS: Three views of the left hand are submitted. Osseous mineralization is normal. There is no fracture or dislocation. There is severe osteoarthritis of the 1st carpometacarpal joint, with joint space narrowing and osteophyte formation. The remaining joint spaces are maintained. The soft tissues are unremarkable. XR/XR hand LT min 3V IMPRESSION: Severe osteoarthritis of the 1st carpometacarpal joint. Electronically signed by: Raffaele Boyer MD 10/22/2024 03:38 PM EDT
== END 2024-10-22 13:56 | disposition home or self-care (01) ==
LOC: HO.HMGCX 13:55
PROVIDERS: PCP Internal Medicine; Visit Provider Nurse Practitioner Family
DX: M18.52 Other unilateral secondary osteoarthritis of first carpometacarpal joint, left hand (principal); M25.751 Osteophyte, right hip
CPT/HCPCS: 73130; 73502

== ENCOUNTER 2024-10-22 13:55 | Outpatient (AMB) | payer OTHER, SELFPAY ==
[2024-10-22 14:31] VITALS: BP 106/62; PULSE 77; TEMP 36.6; O2SAT 97; BMI 33.1
--- NOTE | 2024-10-22 14:31 | AM.OFFWIN_ITS ---
Intake Vital Signs 10/22/24 14:31 Height 5 ft 5 in Weight 199 lb BMI 33.1 BP 106/62 Blood Pressure Location Lt brachial Position Sitting Pulse 77 Pulse Source Pulse Oximeter Temp 98 F Temp Source Oral Pulse Oximetry (%) 97 Oxygen Delivery Method Room Air Intake Visit Reasons: EP RT hip pain, LT wrist pain Intake Note: presents with right hip pain for a couple weeks, left wrist pain and left thumb Patient Tobacco Use Status: Former Tobacco user Allergies ibuprofen (IBUPROFEN) Allergy (Unknown, Verified 10/22/24 14:35) GI UPSET Do you need a note to return to daycare/school/sports/work: No HPI HPI Comments History of Present Illness Details 59 y/o Female patient who presents to [facility] walk in clinic with c/o Right Hip Pain and left wrist pain. Pt has h/o B/L Knee Replacements 8 years ago and currently follows with [facility]. Denies any trauma or injury to the joints. She is S/P Laparoscopy Sleeve Gastrectomy. Pt asking for Xrays because the Orthopedics clinic requesting them before she can be seen. [facility] Medical History (Updated 10/22/24 @ 15:09 by Sri Lucero NP) Right hip pain Wrist pain, left H. pylori infection Colon cancer screening Impaired glucose tolerance Morbid obesity Epigastric pain Plantar fasciitis, right Right-sided chest pain Annual physical exam Fatty liver Steatosis, liver Osteoarthritis of right knee History of anemia History of vitamin D deficiency Hx of low back pain IBS (irritable bowel syndrome) Anxiety and depression Psoriasis Fibromyalgia Migraine Recurrent major depression Peripheral vascular disease Osteoarthritis Obesity (BMI 30-39.9) GERD (gastroesophageal reflux disease) Primary osteoarthritis of left knee COVID-19 Pneumonia Surgical History (Updated 09/29/24 @ 00:01 by Marty Sharp) History of total right knee replacement Status post total knee replacement, left History of esophagogastroduodenoscopy (EGD) (08/10/24) History of total left knee replacement History of laparoscopic cholecystectomy History of endoscopy History of colonoscopy History of total right knee replacement (TKR) History of bunionectomy of both great toes S/P right unicompartmental knee replacement History of foot surgery History of tubal ligation History of arthroscopy of both knees S/P cholecystectomy Family History Father Diabetes Hypertension Mother Myocardial infarct Sister Myocardial infarct Daughter Migraine Daughter Migraine Other CVA (cerebral vascular accident) Social History Household Members: Spouse Housing: House Are you a primary client care coordinator to a significant other at home: No Do you presently have visiting nurse or other home services: No Alcohol intake: current Alcohol intake frequency: holidays/special occasions only Patient Tobacco Use Status: Former Tobacco user Tobacco use type: Cigarette Years Smoked: 2009 quit e-Cigarette/Vaping Use: Never Used Second Hand Smoke Exposure: No Advance Directives Date on File: 06/11/10 service: No Current occupational status: employed Cognitive needs: No Hearing needs: No Vision needs: Yes Review of Systems Const All systems reviewed & are unremarkable except as noted in HPI and below Physical Exam Vital Signs: Last Vital Signs Temp 98 F 10/22/24 14:31 Pulse 77 10/22/24 14:31 BP 106/62 10/22/24 14:31 Pulse Ox 97 10/22/24 14:31 Oxygen Delivery Method Room Air 10/22/24 14:31 BMI result Body Mass Index 33.1 Const General: no acute distress Nutritional Appearance: obese Orientation/consciousness: patient oriented x3 Neuro General: patient oriented x3 Gait exam (Neuro): Other gait observations present (With Limp) Extrem Right upper extremity: normal to inspection and full ROM Left upper extremity: hand Details: normal capillary refill, tenderness Location: of the dorsal hand Location: distally, normal ROM of fingers and swelling Location: of the dorsal hand; no crepitus Right lower extremity: hip/thigh Details: normal to inspection, tenderness Location: of the hip and abnormal ROM Details: pain with active ROM during and pain with passive ROM during; no swelling, no ecchymosis, no crepitus, no deformity and no unusual warmth Left lower extremity: normal to inspection Psych Speech and movement: Normal speech and movement present Assessment & Plan Assessment & Plan (1) Wrist pain, left: Code(s): M25.532 - Pain in left wrist Plan: Pt to wear a Wrist/Hand Brace - she has them at home Ice/Hot Acetaminophen for pain relief Rest joint. Ordered Xray Hand F/U with Orthopedics. (2) Right hip pain: Code(s): M25.551 - Pain in right hip Plan: Ordered Xray Hip Ice/Hot Rest Joint Acetaminophen for pain relief. F/U with Orthopedics. Orders: Orders XR hip RT min 2V Today M25.551 - Pain in right hip XR hand LT min 3V Today M25.532 - Pain in left wrist Coding Level of Care Code Est Pt Level 4 (62119) Diagnoses Wrist pain, left M25.532 Right hip pain M25.551 Time Spent (min) 20
== END 2024-10-22 15:49 | disposition home or self-care (01) ==
PROVIDERS: PCP Internal Medicine; Visit Provider Nurse Practitioner Family
DX: M25.532 Pain in left wrist (principal); M25.551 Pain in right hip

== ENCOUNTER → 2024-10-22 15:15 | Outpatient (BNV) | payer OTHER, SELFPAY | PROVIDERS: PCP Internal Medicine; Visit Provider Radiology Diagnostic Radiology | DX: M25.751 Osteophyte, right hip (principal); M18.12 Unilateral primary osteoarthritis of first carpometacarpal joint, left hand | CPT/HCPCS: 73130; 73502 ==

== ENCOUNTER 2024-11-09 09:19 | Outpatient (AMB) | payer OTHER, SELFPAY ==
--- NOTE | 2024-11-09 09:23 | A.OFFVIS_ITS ---
VS Expanded 11/09/24 09:25 BP 98/64 Blood Pressure Location Rt brachial Blood Pressure Position Sitting Pulse 99 Pulse Source Pulse Oximeter Temp 97.9 F Temperature Source Temporal Artery Scan Pulse Oximetry 95 Oxygen Delivery Method Room Air Height 5 ft 5 in Weight 190 lb 9.6 oz BMI 31.7 Body Fat % 34.5 Body Fat Mass 65.6 Fat Free Mass 124.8 Visceral Fat Rating 9.0 Body Water % 46.4 Body Water Mass 88.4 Muscle Mass/Score 118.4 Basal Metabolic Rate/Score 1,680 Intake Visit Reasons: (OV) PO LSG 09/25/24 Liner Man Required: No Allergies ibuprofen (IBUPROFEN) Allergy (Unknown, Verified 11/09/24 09:26) GI UPSET Medication List - Last Reconciled 11/09/24 by GRICEL Frank wrssrjw-lgkovxapeegvl-mzdonafn 250-250-65 mg (Excedrin Migraine) 1 tab PO Q4-6H PRN Held on 09/26/24. Instructions: until discussed with Dr Crabtree pantoprazole 40 mg PO DAILY psyllium husk (Metamucil) 1 tbsp PO DAILY sucralfate 10 mL PO BID HPI Comments Details: This?a?59?yo faint who is s/p LSG without hiatal hernia repair on?09/25/2024. Presents for 1 month post op visit. Weight today is 190.6 pounds, with a BMI of 31.7. There has been a 50.4 pound weight loss,(initial weight 241 pounds) since starting the program on 06/29/2024 reflecting a 20.9 % total body weight loss and a weight loss of 29.4 pounds since surgery (operative weight 220 pounds) reflecting a 13.3 % TBWL since surgery. No complaints of nausea, emesis, abdominal pain or reflux. Reports infrequent but normal bowel movements every 2- 3 days and uses stool softeners regularly. She states that she has been having difficulty with left wrist and right hip arthritis. She is scheduled to follow-up with orthopedics next month. She has been able to utilize the stationary bike although splitting routine in 2 sessions per day. Present meal plan includes: Celebrate rebuild with 1 scoop at 8-10, 2-4, 7-9 Celebrate bar at 11-1 Meal at 5 with 3 forks chicken or fish and 3 forks of broccoli or cauliflower. Drinking 48 oz fluids ? Exercise routine includes: stationary bike 300 calories daily PFS Medical History (Reviewed 11/09/24 @ 09: by Greta Perez CMA) Right hip pain Wrist pain, left H. pylori infection Colon cancer screening Impaired glucose tolerance Morbid obesity Epigastric pain Plantar fasciitis, right Right-sided chest pain Annual physical exam Fatty liver Steatosis, liver Osteoarthritis of right knee History of anemia History of vitamin D deficiency Hx of low back pain IBS (irritable bowel syndrome) Anxiety and depression Psoriasis Fibromyalgia Migraine Recurrent major depression Peripheral vascular disease Osteoarthritis Obesity (BMI 30-39.9) GERD (gastroesophageal reflux disease) Primary osteoarthritis of left knee COVID-19 Pneumonia Surgical History (Reviewed 11/09/24 @ 09: by Greta Perez CMA) History of total right knee replacement Status post total knee replacement, left History of esophagogastroduodenoscopy (EGD) (08/10/24) History of total left knee replacement History of laparoscopic cholecystectomy History of endoscopy History of colonoscopy History of total right knee replacement (TKR) History of bunionectomy of both great toes S/P right unicompartmental knee replacement History of foot surgery History of tubal ligation History of arthroscopy of both knees S/P cholecystectomy Family History (Reviewed 11/09/24 @ 09: by Greta Perez CMA) Father Diabetes Hypertension Mother Myocardial infarct Sister Myocardial infarct Daughter Migraine Daughter Migraine Other CVA (cerebral vascular accident) Social History Household Members: Spouse Housing: House Are you a primary emergency care attendant to a significant other at home: No Do you presently have visiting nurse or other home services: No Alcohol intake: current Alcohol intake frequency: holidays/special occasions only Patient Tobacco Use Status: Former Tobacco user Tobacco use type: Cigarette Years Smoked: 2009 quit e-Cigarette/Vaping Use: Never Used Second Hand Smoke Exposure: No Advance Directives Date on File: 06/11/10 service: No Current occupational status: employed Cognitive needs: No Hearing needs: No Vision needs: Yes Physical Exam Vital Signs: Last Vital Signs Temp 97.9 F 11/09/24 09:25 Pulse 99 11/09/24 09:25 BP 98/64 11/09/24 09:25 Pulse Ox 95 11/09/24 09:25 Oxygen Delivery Method Room Air 11/09/24 09:25 BMI result Body Mass Index 31.7 Const General: healthy appearing and no acute distress Resp Effort & Inspection: normal respiratory effort Auscultation: clear to auscultation bilaterally Cardio Rate: regular rate Rhythm: regular rhythm GI Auscultation: normal bowel sounds Extrem General: Yes normal to inspection Assessment & Plan Assessment & Plan (1) S/P laparoscopic sleeve gastrectomy: Comment: 09/25/2024 Dr. Crabtree Code(s): Z98.84 - Bariatric surgery status Category: Surgical Plan: Overall, patient is doing well. She continues to follow the meal plan as directed by Dr. Crabtree. She has overcome osteoarthritis of her right hip and left wrist by splitting her stationary bike routine to b.i.d.. Goal of 300 calories per day which she states she is achieving. She did inquire about medication p.r.n. for migraine as she had previously been taking Excedrin however this was not recommended given the NSAID component. She is going to discuss alternatives with her primary care physician or neurologist. Return to clinic 1 month
[2024-11-09 09:25] VITALS: BP 98/64; PULSE 99; TEMP 36.6; O2SAT 95; BMI 31.7
== END 2024-11-09 09:49 | disposition home or self-care (01) ==
LOC: HO.HBS 09:20
PROVIDERS: PCP Internal Medicine; Visit Provider Physician Assistant Surgical
DX: Z98.84 Bariatric surgery status (principal)
CPT/HCPCS: 99024

== ENCOUNTER 2024-11-15 08:26 | Outpatient (REF) | payer OTHER, SELFPAY ==
--- NOTE | ~2024-11-15 | XR_ITS ---
EXAMINATION: XR PELVIS CLINICAL INFORMATION: M25.559 - Pain in unspecified hip COMPARISON: Right hip x-ray from October 22, 2024 TECHNIQUE: AP view of the pelvis. FINDINGS: Small roof acetabular osteophytes are present involving both hips. Degenerative cystic changes are suspected in the right acetabular roof. Joint spaces are preserved. SI joints are unremarkable. No other abnormalities are evident. XR/XR pelvis 1-2V IMPRESSION: Small acetabular roof osteophytes with degenerative cystic changes involving the right acetabular roof Electronically signed by: Jack Faulkner MD 11/15/2024 03:20 PM EDT
== END 2024-11-15 08:27 | disposition home or self-care (01) ==
LOC: HO.HOSX 08:26
PROVIDERS: Visit Provider Physician Assistant
DX: M47.816 Spondylosis without myelopathy or radiculopathy, lumbar region (principal); M25.551 Pain in right hip
CPT/HCPCS: 72170

== ENCOUNTER 2024-11-15 15:07 | Outpatient (AMB) | payer OTHER, SELFPAY ==
--- NOTE | 2024-11-15 15:10 | A.OFFVIS_ITS ---
Vital Signs 11/15/24 15:11 Height 5 ft 5 in Weight 190 lb BMI 31.6 Intake Visit Reasons: New Prob-Right hip arthritis Intake Note: Carolyn is a 59 year old female who presents today for a new problem visit with complains of right hip pain radiating to her lower back and down to the foot, posteriorly, without numbness or tingling. Patient states she fell years ago and had some groin pain at the pain. Patient denies any new injuries or previous surgeries to the right hip pain. She has been taking Tylenol without relief. She states she cannot take anything else due to having a gastric sleeve back in September. Allergies ibuprofen (IBUPROFEN) Allergy (Unknown, Verified 11/15/24 15:12) GI UPSET HPI HPI New Prob-Right hip arthritis: Details: Ms. Hope is a 59-year-old female who presents to the office today for right side lower extremity pain. She states that she has had groin pain for many years but this pain has gradually developed over time and is different. It is unclear for how long exactly she has been experiencing this pain. She describes the pain radiating from the lower back into the buttock down the posterior thigh and into the calf. She denies numbness and tingling. She reports that she does have a history of low back arthritis and bulging discs. She does not currently see a academic affairs specialist for this. She was seen at an urgent care because the pain began to become more severe. An x-ray was obtained at the urgent care and was significant for arthritis. Patient does not endorse any groin pain at this time. Patient has taken Tylenol without relief. She is unable to take anti- inflammatories due to a history of a gastric sleeve. [facility] Medical History (Reviewed 11/09/24 @ 09: by Greta Perez [facility]) Right hip pain Wrist pain, left H. pylori infection Colon cancer screening Impaired glucose tolerance Morbid obesity Epigastric pain Plantar fasciitis, right Right-sided chest pain Annual physical exam Fatty liver Steatosis, liver Osteoarthritis of right knee History of anemia History of vitamin D deficiency Hx of low back pain IBS (irritable bowel syndrome) Anxiety and depression Psoriasis Fibromyalgia Migraine Recurrent major depression Peripheral vascular disease Osteoarthritis Obesity (BMI 30-39.9) GERD (gastroesophageal reflux disease) Primary osteoarthritis of left knee COVID-19 Pneumonia Surgical History History of total right knee replacement Status post total knee replacement, left History of esophagogastroduodenoscopy (EGD) (08/10/24) History of total left knee replacement History of laparoscopic cholecystectomy History of endoscopy History of colonoscopy History of total right knee replacement (TKR) History of bunionectomy of both great toes S/P right unicompartmental knee replacement History of foot surgery History of tubal ligation History of arthroscopy of both knees S/P cholecystectomy Family History Father Diabetes Hypertension Mother Myocardial infarct Sister Myocardial infarct Daughter Migraine Daughter Migraine Other CVA (cerebral vascular accident) Social History Household Members: Spouse Housing: House Are you a primary care director to a significant other at home: No Do you presently have visiting nurse or other home services: No Alcohol intake: current Alcohol intake frequency: holidays/special occasions only Patient Tobacco Use Status: Former Tobacco user Tobacco use type: Cigarette Years Smoked: 2009 quit e-Cigarette/Vaping Use: Never Used Second Hand Smoke Exposure: No Advance Directives Date on File: 06/11/10 service: No Current occupational status: employed Cognitive needs: No Hearing needs: No Vision needs: Yes Review of Systems Const All systems reviewed & are unremarkable except as noted in HPI and below Physical Exam Vital Signs: BMI result Body Mass Index 31.6 Const General: cooperative, healthy appearing and no acute distress Resp Effort & Inspection: normal respiratory effort and able to speak in complete sentences Extrem Other: Right hip: Full hip ROM in all planes. No groin pain with internal and external rotation. Tenderness to palpation over the greater trochanteric bursa. Able to perform straight leg raise. NVI. Psych Appearance: grossly normal Mental Status: mental status grossly normal Attitude: cooperative Assessment & Plan Assessment & Plan (1) Arthritis, lumbar spine: Code(s): M47.816 - Spondylosis without myelopathy or radiculopathy, lumbar region Category: Medical Plan Ms. Hope is a 59-year-old female who presents to the office today for right side lower extremity pain. She states that she has had groin pain for many years but this pain has gradually developed over time and is different. It is unclear for how long exactly she has been experiencing this pain. She describes the pain radiating from the lower back into the buttock down the posterior thigh and into the calf. She denies numbness and tingling. She reports that she does have a history of low back arthritis and bulging discs. She does not currently see a academic affairs specialist for this. She was seen at an urgent care because the pain began to become more severe. An x-ray was obtained at the urgent care and was significant for arthritis. Patient does not endorse any groin pain at this time. Patient has taken Tylenol without relief. She is unable to take anti- inflammatories due to a history of a gastric sleeve. While in the office today, physical examination as well as patient reported symptoms is difficult to interpret as right hip osteoarthritis. The pain that is originating in the lower back in traveling down the posterior right lower extremity is likely related to her L-spine arthritis that she is aware of. I have recommended that she follow up with Dr. Braun for further evaluation and treatment. X-rays of the pelvis which were obtained while in the office today and were reviewed by me, Ann Ordoñez PA-C, revealed bilateral hip arthritis. Orders: Orders XR pelvis 1-2V Today M25.559 - Pain in unspecified hip Coding Level of Care Code Est Pt Level 3 (81760) Diagnoses Arthritis, lumbar spine M47.816
[2024-11-15 15:11] VITALS: BMI 31.6
== END 2024-11-15 15:37 | disposition home or self-care (01) ==
PROVIDERS: PCP Internal Medicine; Visit Provider Physician Assistant
DX: M47.816 Spondylosis without myelopathy or radiculopathy, lumbar region (principal)
CPT/HCPCS: 99213

== ENCOUNTER → 2024-11-15 15:09 | Outpatient (BNV) | payer OTHER, SELFPAY | PROVIDERS: Visit Provider Radiology Diagnostic Radiology | DX: M25.751 Osteophyte, right hip (principal) | CPT/HCPCS: 72170 ==

== ENCOUNTER 2024-11-16 14:49 | Outpatient (AMB) | payer OTHER, SELFPAY ==
--- NOTE | 2024-11-16 14:51 | A.OFFVIS_ITS ---
Vital Signs 11/16/24 14:56 Height 5 ft 5 in Weight 190 lb BMI 31.6 Intake Visit Reasons: New Prob-Left thumb to wrist pain Intake Note: Carolyn is a 59 year old right hand dominant female who presents today for New Problem visit with complaints of left thumb and wrist pain and swelling that started about one year ago. Pain is primarily located on the radial aspect from the thumb to the wrist. She has been wearing a sleeve. She is taking Tylenol with some relief. Denies previous injuries or surgeries to the left wrist/hand. Per patient, she has a history of bilateral hand carpal tunnel, treated with occupational therapy and bracing at night. Patient had a laparoscopic gasttri sleeve 09/25/24. Allergies ibuprofen (IBUPROFEN) Allergy (Unknown, Verified 11/16/24 14:52) GI UPSET HPI HPI New Prob-Left thumb to wrist pain: Details: Carolyn is a 59 year old right hand dominant female who presents today for New Problem visit with complaints of left thumb and wrist pain and swelling that started about one year ago. Pain is primarily located on the radial aspect from the thumb to the wrist. She has been wearing a sleeve. She is taking Tylenol with some relief. Denies previous injuries or surgeries to the left wrist/hand. Per patient, she has a history of bilateral hand carpal tunnel, treated with occupational therapy and bracing at night. Patient had a laparoscopic gasttri sleeve 09/25/24. REPLACED BY [facility] Medical History Right hip pain Wrist pain, left H. pylori infection Colon cancer screening Impaired glucose tolerance Morbid obesity Epigastric pain Plantar fasciitis, right Right-sided chest pain Annual physical exam Fatty liver Steatosis, liver Osteoarthritis of right knee History of anemia History of vitamin D deficiency Hx of low back pain IBS (irritable bowel syndrome) Anxiety and depression Psoriasis Fibromyalgia Migraine Recurrent major depression Peripheral vascular disease Osteoarthritis Obesity (BMI 30-39.9) GERD (gastroesophageal reflux disease) Primary osteoarthritis of left knee COVID-19 Pneumonia Surgical History History of total right knee replacement Status post total knee replacement, left History of esophagogastroduodenoscopy (EGD) (08/10/24) History of total left knee replacement History of laparoscopic cholecystectomy History of endoscopy History of colonoscopy History of total right knee replacement (TKR) History of bunionectomy of both great toes S/P right unicompartmental knee replacement History of foot surgery History of tubal ligation History of arthroscopy of both knees S/P cholecystectomy Family History Father Diabetes Hypertension Mother Myocardial infarct Sister Myocardial infarct Daughter Migraine Daughter Migraine Other CVA (cerebral vascular accident) Social History (Updated 11/16/24 @ 14:53 by KARINA Loco) Household Members: Spouse Housing: House Are you a primary client care coordinator to a significant other at home: No Do you presently have visiting nurse or other home services: No Alcohol intake: current Alcohol intake frequency: holidays/special occasions only Patient Tobacco Use Status: Former Tobacco user Tobacco use type: Cigarette Years Smoked: 2009 quit e-Cigarette/Vaping Use: Never Used Second Hand Smoke Exposure: No Advance Directives Date on File: 06/11/10 service: No Current occupational status: employed 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 Neuro: Normal sensation of the tips of all digits of the left hand at this time Vascular: Cap refill brisk Pain: Tenderness to palpation about the base of the thumb No tenderness to palpation of the left radial styloid Negative Yasmin in the left Positive CMC grind in the left ROM: Patient is able to make a closed fist and extend all digits of the left hand fully and without difficulty Skin: No lacerations or abrasions. General: No ecchymosis, erythema, or evidence of infection. Psych: Appears grossly normal Affect normal Attitude cooperative Results Reviewed Results Reviewed: X-rays obtained in the office today and independently reviewed by me, Sung Bright PA-C, demonstrate moderate to severe arthritis of the 1st CMC joint of the left hand. Assessment & Plan Assessment & Plan (1) Arthritis of carpometacarpal (CMC) joint of left thumb: Code(s): M18.12 - Unilateral primary osteoarthritis of first carpometacarpal joint, left hand Category: Medical Plan 1. 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 Once consent was obtained the skin over the dorsum of the left basal joint was sterilely prepped. Unfortunately, upon attempted injection, I was not able to advance the needle into the basal joint of the left thumb, hitting bone with all attempted repositioning. I did not inject any steroid into the area. Due to this, I have referred the patient to Dr. Chamorro for next available appointment for a basal joint injection under x-ray guidance. Patient understands this and is amenable to this plan Follow-up with Dr. Chamorro for left basal joint injection under x-ray guidance, sooner with any acute concerns Coding Level of Care Code Est Pt Level 3 (15929) Diagnoses Arthritis of carpometacarpal (CMC) joint of left thumb M18.12
[2024-11-16 14:56] VITALS: BMI 31.6
== END 2024-11-16 15:30 | disposition home or self-care (01) ==
LOC: HO.HOS 14:50
PROVIDERS: PCP Internal Medicine
DX: M18.12 Unilateral primary osteoarthritis of first carpometacarpal joint, left hand (principal)
CPT/HCPCS: 20600; 99213

== ENCOUNTER → 2024-11-16 14:49 | Outpatient (BNVA) | payer OTHER, SELFPAY | PROVIDERS: PCP Internal Medicine | DX: M18.12 Unilateral primary osteoarthritis of first carpometacarpal joint, left hand (principal) | CPT/HCPCS: 20600; J1010; J2003 ==

== ENCOUNTER 2024-12-20 15:08 | Outpatient (AMB) | payer OTHER, SELFPAY ==
--- NOTE | 2024-12-20 07:46 | MHC.OFFVISWM ---
VS Expanded 12/20/24 07:47 Height 5 ft 5 in Weight 178 lb 6 oz BMI 29.7 Body Fat % 37.8 Body Fat Mass 67.6 Fat Free Mass 111 Visceral Fat Rating 12 Body Water % 42.7 Body Water Mass 76.2 Muscle Mass/Score 104.4 Basal Metabolic Rate/Score 1,446 Intake Visit Reasons: (TV) PO LSG 09/25/24 Allergies ibuprofen (IBUPROFEN) Allergy (Unknown, Verified 11/16/24 14:52) GI UPSET Medication List - Last Reconciled 12/20/24 by GRICEL Frank [id number] [id number] mg (Excedrin Migraine) 1 tab PO Q4-6H PRN Held on 09/26/24. Instructions: until discussed with Dr Crabtree psyllium husk (Metamucil) 1 tbsp PO DAILY HPI Comments Details: This?a?59?yo female who is s/p LSG without hiatal hernia repair on?09/25/2024. Presents for 3 month post op visit. Weight today is 178.6 pounds, with a BMI of 29.7. There has been a 62.4 pound weight loss,(initial weight 241 pounds) since starting the program on 06/29/2024 reflecting a 25.8 % total body weight loss and a weight loss of 41.4 pounds since surgery (operative weight 220 pounds) reflecting a 18.8 % TBWL since surgery. No complaints of nausea, emesis, abdominal pain or reflux. Reports infrequent but normal bowel movements every 2-3 days and uses stool softeners regularly. Taking mvi daily She states that she has been having difficulty with left wrist and right hip arthritis. She had follow-up with orthopedics and had an injection in her hand but the hip was from a pinched nerve. She has been able to utilize the stationary bike although splitting routine in 2 sessions per day. Present meal plan includes: Celebrate rebuild with 1 scoop at 8-10, 2-4, 7-9 Celebrate bar at 11-1 (not eating the bar) Meal at 5 with 4 forks chicken or fish and 4 forks of broccoli or cauliflower. Drinking 60 oz fluids ? Exercise routine includes: stationary bike 300 calories 4 days per week walking 30 min 3-4 days per week [facility] Medical History Right hip pain Wrist pain, left H. pylori infection Colon cancer screening Impaired glucose tolerance Morbid obesity Epigastric pain Plantar fasciitis, right Right-sided chest pain Annual physical exam Fatty liver Steatosis, liver Osteoarthritis of right knee History of anemia History of vitamin D deficiency Hx of low back pain IBS (irritable bowel syndrome) Anxiety and depression Psoriasis Fibromyalgia Migraine Recurrent major depression Peripheral vascular disease Osteoarthritis Obesity (BMI 30-39.9) GERD (gastroesophageal reflux disease) Primary osteoarthritis of left knee COVID-19 Pneumonia Surgical History History of total right knee replacement Status post total knee replacement, left History of esophagogastroduodenoscopy (EGD) (08/10/24) History of total left knee replacement History of laparoscopic cholecystectomy History of endoscopy History of colonoscopy History of total right knee replacement (TKR) History of bunionectomy of both great toes S/P right unicompartmental knee replacement History of foot surgery History of tubal ligation History of arthroscopy of both knees S/P cholecystectomy Family History Father Diabetes Hypertension Mother Myocardial infarct Sister Myocardial infarct Daughter Migraine Daughter Migraine Other CVA (cerebral vascular accident) Social History (Updated 11/16/24 @ 14:53 by KARINA Loco) Household Members: Spouse Housing: House Are you a primary caregiver assisted living to a significant other at home: No Do you presently have visiting nurse or other home services: No Alcohol intake: current Alcohol intake frequency: holidays/special occasions only Patient Tobacco Use Status: Former Tobacco user Tobacco use type: Cigarette Years Smoked: 2009 quit e-Cigarette/Vaping Use: Never Used Second Hand Smoke Exposure: No Advance Directives Date on File: 06/11/10 service: No Current occupational status: employed 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, [employer]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 Crabtree Code(s): Z98.84 - Bariatric surgery status Category: Medical Plan: Patient will continue to communicate with Dr. Crabtree regarding her meal plan. She inquired about expanding beyond chicken and she certainly may use fish if she wishes to include cod or tilapia or salmon. She may have cauliflower or green beans in addition to broccoli. I have encouraged her to increase her exercise routine. She does split her calories burned on the stationary bike into 2 sessions. Previously doing 150 calories per session, 4 days per week. I have encouraged her to increase to 175 calories per session, 6 days per week and she states that she will do this. We will have her follow-up in the office as scheduled.
[2024-12-20 07:47] VITALS: BMI 29.7
== END 2024-12-20 15:26 | disposition home or self-care (01) ==
LOC: HO.HBS 15:09
PROVIDERS: PCP Internal Medicine; Visit Provider Physician Assistant Surgical
DX: Z98.84 Bariatric surgery status (principal)
CPT/HCPCS: 99024

== ENCOUNTER 2024-12-24 17:16 | Outpatient (AMB) | payer OTHER, SELFPAY ==
[2024-12-24 17:17] VITALS: BP 112/68; PULSE 62; O2SAT 98; BMI 29.8
--- NOTE | 2024-12-24 17:17 | MHC.PC.OV ---
Vital Signs 12/24/24 17:17 Height 5 ft 5 in Weight 179 lb BMI 29.8 BP 112/68 Blood Pressure Location Lt brachial Position Sitting Pulse 62 Pulse Source Pulse Oximeter Pulse Oximetry (%) 98 Oxygen Delivery Method Room Air Intake Visit Reasons: annual exam Allergies ibuprofen (IBUPROFEN) Allergy (Unknown, Verified 12/24/24 17:18) GI UPSET Medication List - Last Reconciled 12/24/24 by Negra Herrera MD [bariatric vitamins ] cholecalciferol (vitamin D3) 25 mcg PO DAILY psyllium husk (Metamucil) 1 tbsp PO DAILY Tobacco use date assessed: 06/11/24 Dental Screening Dental Screen Date: 06/11/24 HPI annual exam HPI Details noted 60 lb weight loss. [facility] Medical History (Updated 12/24/24 @ 17:38 by Negra Herrera MD) Annual physical exam BMI 35.0-35.9,adult Obesity (BMI 30-39.9) Right hip pain Wrist pain, left H. pylori infection Colon cancer screening Impaired glucose tolerance Morbid obesity Epigastric pain Plantar fasciitis, right Right-sided chest pain Fatty liver Steatosis, liver Osteoarthritis of right knee History of anemia History of vitamin D deficiency Hx of low back pain IBS (irritable bowel syndrome) Anxiety and depression Psoriasis Fibromyalgia Migraine Recurrent major depression Peripheral vascular disease Osteoarthritis GERD (gastroesophageal reflux disease) Primary osteoarthritis of left knee COVID-19 Pneumonia Surgical History History of total right knee replacement Status post total knee replacement, left History of esophagogastroduodenoscopy (EGD) (08/10/24) History of total left knee replacement History of laparoscopic cholecystectomy History of endoscopy History of colonoscopy History of total right knee replacement (TKR) History of bunionectomy of both great toes S/P right unicompartmental knee replacement History of foot surgery History of tubal ligation History of arthroscopy of both knees S/P cholecystectomy Family History Father Diabetes Hypertension Mother Myocardial infarct Sister Myocardial infarct Daughter Migraine Daughter Migraine Other CVA (cerebral vascular accident) Social History (Updated 12/24/24 @ 17:39 by Negra Herrera MD) Household Members: Spouse Housing: House Are you a primary senior care provider to a significant other at home: No Do you presently have visiting nurse or other home services: No Alcohol intake: current Alcohol intake frequency: holidays/special occasions only Comment: stopped after surgery- gastric Patient Tobacco Use Status: Former Tobacco user Tobacco use type: Cigarette Years Smoked: 2009 quit e-Cigarette/Vaping Use: Never Used Second Hand Smoke Exposure: No Advance Directives Date on File: 06/11/10 service: No Current occupational status: employed 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 1. Little interest or pleasure in doing things: not at all 2. Feeling down, depressed, or hopeless: not at all 3. Trouble falling or staying asleep, or sleeping too much: not at all 4. Feeling tired or having little energy: not at all 5. Poor appetite or overeating: not at all 6. Feeling bad about yourself - or that you are a failure or have let yourself or your family down: not at all 7. Trouble concentrating on things, such as reading the newspaper or watching television: not at all 8. Moving or speaking so slowly that other people could have noticed. Or the opposite - being so fidgety or restless that you have been moving around a lot more than usual: not at all 9. Thoughts that you would be better off or of hurting yourself in some way: not at all Total score: 0 Depression Screening Interpretation: Negative Depression Screening Done: Yes Source: Developed by Drs. Raffaele Bowman, Tomasa Rivas, John Gonzalez and colleagues, with an educational alexandra from [employer]. Thrive Questionnaire Date Thrive assessed: 12/18/24 I am a: Patient What is your living situation today?: I have a steady place to live Within the past 12 months, did the food you bought not last and you didn't have the money to get more?: I choose not to answer this question Within the past 12 months, did you worry whether your food would run out before you got money to buy more?: I choose not to answer this question Do you have trouble paying for medicines?: No Do you have trouble getting transportation to medical appointments?: No Do you have trouble paying your heating and electricity bill?: No Do you have trouble taking care of your child, family member or friend?: No Do you have trouble with day-to-day activities such as bathing, preparing meals, shopping, managing finances, etc.?: No Are you currently unemployed and looking for a job?: No Are you interested in more education?: No Please select the resources that you would like help with: None Currently or been in a relationship where the following occur: No concerns reported THRIVE Score: 0 AUDIT C Alcohol Use Questionnaire (AUDIT-C) 1. How often do you have a drink containing alcohol?: Monthly or less 2. How many drinks containing alcohol do you have on a typical day when you are drinking?: 1 or 2 3. How often do you have six or more drinks on one occasion?: Never Total Score: 1 HARRIS-7 AMB Questionnaire HARRIS-7 Date HARRIS - 7 assessed: 12/24/24 Feeling nervous, anxious, or on edge: 0 = Not at all Not being able to stop or control worryin = Not at all Worrying too much about different things: 0 = Not at all Trouble relaxin = Not at all Being so restless that it is hard to sit still: 0 = Not at all Becoming easily annoyed or irritable: 0 = Not at all Feeling afraid as if something awful might happen: 0 = Not at all Total HARRIS-7 score (0-4 normal; 5-9 mild; 10-14 moderate; 15-21 severe): 0 Source: Developed by Drs. Raffaele Bowman, Tomasa Rivas, John Gonzalez and colleagues, with an educational alexandra from [employer]. Review of Systems Const Denies poor appetite and Denies weakness Eyes Denies no additional complaints ENT Reports Normal hearing present, Denies dizziness, Denies nasal congestion, Denies tinnitus and Denies sore throat Card Denies chest pain, Denies syncope, Denies rapid heart rate and Denies dyspnea Resp Denies cough and Denies dyspnea GI Denies change in stool character, Reports constipation, Denies diarrhea, Denies nausea and Denies vomiting Denies urinary frequency, Denies difficulty voiding and Denies dysuria Neuro Reports Normal hearing present, Denies confusion, Denies dizziness, Denies syncope and Denies weakness Psych Denies confusion Physical exam (Primary Care) Vital Signs: Last Vital Signs Pulse 62 12/24/24 17:17 BP 112/68 12/24/24 17:17 Pulse Ox 98 12/24/24 17:17 Oxygen Delivery Method Room Air 12/24/24 17:17 BMI result Body Mass Index 29.8 Tobacco/Smoking Status: Tobacco use Status Tobacco use date assessed 06/11/24 12/24/24 17:22 Patient Tobacco Use Status Former Tobacco user 12/24/24 17:22 Tobacco use type Cigarette 12/24/24 17:22 e-Cigarette/Vaping Use Never Used 12/24/24 17:22 PHQ-9: PHQ-9 Score PHQ-9: Total score 0 12/24/24 17:22 Depression Screening Interpretation: Negative Thrive Assessment: Date of Thrive Assessment Date Thrive assessed 12/18/24 12/24/24 17:22 Currently or been in a relationship where the following occur: No concerns reported Const General: alert and awake; No confusion Orientation/consciousness: No confusion HENMT Head: Yes normocephalic Ears: external ears normal and TM's normal bilaterally Face and sinus: Yes normal facial exam Mouth: moist mucous membranes Throat: Yes tonsils normal Eyes Conjunctivae: conjunctivae normal Pupils: Equal, round and reactive pupils present and Pupil accommodation reflex normal Direct Ophthalmoscopy: normal light reflex Neck Neck: No lymphadenopathy Thyroid: Thyroid normal Chest Chest palpation & inspection: normal inspection of the chest Resp Effort & Inspection: normal respiratory effort and no audible wheezes Auscultation: clear to auscultation bilaterally, no crackles, no wheezes and lung sounds not diminished Cardio Rate: regular rate Rhythm: regular rhythm Peripheral pulses: radial pulses present and dorsalis pedis present GI Palpation (GI): no masses Auscultation: normal bowel sounds and normoactive bowel sounds Rectal Exam - Female: deferred Skin General skin exam: no rashes or lesions noted Rashes: no rashes Neuro General: deep tendon reflexes 2+ bilaterally and No confusion Cranial nerves: Yes Equal, round and reactive pupils present, Yes Midline tongue present, Yes Normal hearing present and Yes Ability to bilaterally elevate shoulders present Cognition (Neuro): normal cognition Gait exam (Neuro): Normal gait present Motor exam (neuro): 5/5 motor strength present throughout Deep tendon reflexes (DTR's): Right brachioradialis reflex intensity grade: 2+, Left brachioradialis reflex intensity grade: 2+, Right patellar reflex intensity grade: 2+ and Left patellar reflex intensity grade: 2+ Extrem General: No edema Coding Level of Care Code Est Pt Prev Care 40-64y(78535) Diagnoses Annual physical exam Z00.00 S/P laparoscopic sleeve gastrectomy Z98.84 Overweight (BMI 25.0-29.9) E66.3 Hypercholesterolemia E78.00 GERD (gastroesophageal reflux disease) K21.9 Steatosis, liver K76.0 CMC arthritis, thumb, degenerative M18.9 Assessment & Plan Assessment & Plan (1) Annual physical exam: Code(s): Z00.00 - Encounter for general adult medical examination without abnormal findings Category: Medical Plan: Patient is advised to eat healthy, keep well hydrated, keep active and have adequate sleep. (2) S/P laparoscopic sleeve gastrectomy: Comment: 09/25/2024 Dr. Crabtree Code(s): Z98.84 - Bariatric surgery status Category: Surgical Plan: Continue to follow-up with bariatric (3) Overweight (BMI 25.0-29.9): Code(s): E66.3 - Overweight Category: Medical Plan: Continue with diet and exercise (4) Hypercholesterolemia: Code(s): E78.00 - Pure hypercholesterolemia, unspecified Category: Medical Plan: Avoid fried foods, chicken skin, eggs, butter margarine, pastries and meat. Be it pork or beef they have a lot of cholesterol LDL goal of less than 130 and triglyceride of less than 150 (5) GERD (gastroesophageal reflux disease): Code(s): K21.9 - Gastro-esophageal reflux disease without esophagitis Category: Medical Plan: Avoid the foods that causes that usually spicy foods, tomato products, juices, coffee, soda and foods that your sensitive to. After eating do not lie down, allow 3-4 hours before in lie down. And keep the head of bed above 30 degrees to avoid the acid from going up. (6) Steatosis, liver: Code(s): K76.0 - Fatty (change of) liver, not elsewhere classified Category: Medical Plan: Low-fat diet and exercise (7) CMC arthritis, thumb, degenerative: Code(s): M18.9 - Osteoarthritis of first carpometacarpal joint, unspecified Category: Medical Plan History of Present Illness The patient is a 59-year-old female presenting for an annual physical examination and follow-up on her chronic conditions. She has a history of Gastroesophageal Reflux Disease (GERD), which has been managed with dietary modifications and medication adjustments to minimize discomfort associated with medication intake. The patient has been diagnosed with peripheral vascular disease and hepatic steatosis, both of which are being monitored regularly. She underwent a laparoscopic sleeve gastrectomy in September 2024, which has resulted in a significant weight loss of 63 pounds. She continues to follow up with bariatric specialists for weight management. The patient has a history of lumbar spine arthritis and osteoarthritis, which have been evaluated by orthopedics. She experiences occasional discomfort and uses a brace for support during activities. Her last blood work in September showed normal blood counts, electrolytes, and renal function. Her cholesterol levels are well-controlled with an LDL of 100 mg/dL and triglycerides of 104 mg/dL. Thyroid function tests were normal. The patient reports constipation, which is managed with magnesium supplements and increased water intake. Health Maintenance - Mammogram is up to date - Colonoscopy last performed in 2017 - Continues to follow up with bariatric specialists for weight management - Dietary modifications and exercise recommended for GERD management Social History - Alcohol: Currently abstaining, advised to wait six months post-surgery - Tobacco: Denies use - Exercise: Engages in regular physical activity as part of weight management - Nutrition: Following a low-fat diet, consuming 64 ounces of water daily Review of Systems - General: Denies fever, chills, or weight loss - Cardiovascular: Denies chest pain, palpitations, or syncope - Respiratory: Denies dyspnea, cough, or wheezing - Gastrointestinal: Reports constipation, denies nausea or vomiting - Musculoskeletal: Reports occasional joint discomfort, denies muscle weakness - Neurological: Denies dizziness, headaches, or vision changes Physical Exam General: Cooperative, healthy appearing, comfortable, no acute distress and well developed Orientation: Patient oriented x3 Limitations: No limitations Head: Normal to inspection Ears: Hearing grossly normal bilaterally Nose: Normal external nose present Face and sinus: Normal facial exam Eyes: Appearance normal, both eyes and all related structures Neck: Normal visual inspection and Yes full ROM Respiratory: Normal respiratory effort and able to speak in complete sentences. Clear to auscultation bilaterally Cardiovascular: Regular rate and rhythm. Normal S1 and S2 GI: Normal to inspection. Soft to palpation and nontender Skin: No rashes or lesions noted Neuro: Patient oriented x3 Extremities: Normal to inspection Results - Labs: Normal blood count, electrolytes, renal function, and thyroid function - Lipid Panel: LDL 100 mg/dL, Triglycerides 104 mg/dL, HDL 54 mg/dL - Imaging: X-ray of pelvis showing arthritis in the right acetabular roof - Liver Ultrasound: Hepatic steatosis Plan Patient was informed and verbally consented to the use of an ambient scribe for clinic note documentation during this visit. 1. Gastroesophageal Reflux Disease (Gerd) The patient is advised to continue with dietary modifications and exercise to manage GERD symptoms. Medication adjustments have been made to minimize discomfort associated with medication intake. 2. Peripheral Vascular Disease The patient is advised to continue regular monitoring of peripheral vascular disease. 3. Hepatic Steatosis The patient is advised to continue regular monitoring of hepatic steatosis. 4. Hypercholesterolemia The patient is advised to maintain cholesterol levels with a goal of LDL less than 130 mg/dL and triglycerides less than 150 mg/dL. 5. Lumbar Spine Arthritis The patient is advised to continue using a brace for support during activities and follow up with orthopedics as needed. 6. Osteoarthritis The patient is advised to continue using a brace for support during activities and follow up with orthopedics as needed. 7. Constipation The patient is advised to continue taking magnesium supplements and increase water intake to manage constipation. 8. Preventative Care The patient is advised to keep mammograms up to date and consider scheduling a colonoscopy as the last one was performed in 2018. Discussion Notes During the visit, I discussed the importance of maintaining a healthy lifestyle, including dietary modifications and regular exercise, to manage GERD and hypercholesterolemia. We reviewed the patient's current medication regimen and made adjustments to minimize gastrointestinal discomfort. I emphasized the need for regular monitoring of peripheral vascular disease and hepatic steatosis. The patient was advised to continue using a brace for lumbar spine arthritis and osteoarthritis and to follow up with orthopedics as needed. We also discussed the importance of keeping up with preventative care measures, including mammograms and colonoscopies. Patient Instructions - Continue dietary modifications and regular exercise to manage GERD and cholesterol levels. - Take medications as prescribed and report any discomfort. - Use a brace for support during activities if experiencing joint discomfort. - Schedule a follow-up appointment with orthopedics if needed. - Keep mammograms up to date and consider scheduling a colonoscopy. - Continue taking magnesium supplements and increase water intake for constipation management.
== END 2024-12-24 17:58 | disposition home or self-care (01) ==
LOC: HO.HMCH 17:17
PROVIDERS: PCP Internal Medicine; Visit Provider Internal Medicine
DX: Z00.00 Encounter for general adult medical examination without abnormal findings (principal); Z98.84 Bariatric surgery status; E66.3 Overweight; E78.00 Pure hypercholesterolemia, unspecified; K21.9 Gastro-esophageal reflux disease without esophagitis; K76.0 Fatty (change of) liver, not elsewhere classified; M18.9 Osteoarthritis of first carpometacarpal joint, unspecified

== ENCOUNTER 2025-01-18 09:43 | Outpatient (AMB) | payer OTHER, SELFPAY ==
--- NOTE | 2025-01-18 09:41 | A.OFFVIS_ITS ---
VS Expanded 01/18/25 09:43 Height 5 ft 5 in Weight 170 lb 8 oz BMI 28.4 Intake Visit Reasons: (TV) PO LSG 09/25/24 Allergies ibuprofen (IBUPROFEN) Allergy (Unknown, Verified 12/24/24 17:18) GI UPSET Medication List - Last Reconciled 01/18/25 by GRICEL Monroy [bariatric vitamins ] cholecalciferol (vitamin D3) 25 mcg PO DAILY psyllium husk (Metamucil) 1 tbsp PO DAILY HPI Comments Details: This?is a?60?yo F who is s/p LSG 09/25/2024. Presents for 4mo post op visit. Weight today is 170.8 pounds, representing a 7.8 pound weight loss from last visit on 12/20/2024 with a BMI today of 28.4.? No complaints of nausea, emesis, abdominal pain or reflux, or constipation. Present meal plan includes: Celebrate rebuild with 1 scoop at 8-10, 2-4, 7-9 Celebrate bar at 11-1 (not eating the bar- stopped this a while ago) Meal at 5 with 4 forks chicken or fish and 4 forks of broccoli or cauliflower. Drinking 60 oz fluids MVI Exercise routine includes: stationary bike 400 calories most days walking 30 min 3-4 days per week has arthritis in knees, hip [facility] Medical History (Updated 12/24/24 @ 17:38 by Negra Herrera MD) Annual physical exam BMI 35.0-35.9,adult Obesity (BMI 30-39.9) Right hip pain Wrist pain, left H. pylori infection Colon cancer screening Impaired glucose tolerance Morbid obesity Epigastric pain Plantar fasciitis, right Right-sided chest pain Fatty liver Steatosis, liver Osteoarthritis of right knee History of anemia History of vitamin D deficiency Hx of low back pain IBS (irritable bowel syndrome) Anxiety and depression Psoriasis Fibromyalgia Migraine Recurrent major depression Peripheral vascular disease Osteoarthritis GERD (gastroesophageal reflux disease) Primary osteoarthritis of left knee COVID-19 Pneumonia Surgical History History of total right knee replacement Status post total knee replacement, left History of esophagogastroduodenoscopy (EGD) (08/10/24) History of total left knee replacement History of laparoscopic cholecystectomy History of endoscopy History of colonoscopy History of total right knee replacement (TKR) History of bunionectomy of both great toes S/P right unicompartmental knee replacement History of foot surgery History of tubal ligation History of arthroscopy of both knees S/P cholecystectomy Family History Father Diabetes Hypertension Mother Myocardial infarct Sister Myocardial infarct Daughter Migraine Daughter Migraine Other CVA (cerebral vascular accident) Social History (Updated 12/24/24 @ 17:39 by Negra Herrera MD) Household Members: Spouse Housing: House Are you a primary rn palliative care to a significant other at home: No Do you presently have visiting nurse or other home services: No Alcohol intake: current Alcohol intake frequency: holidays/special occasions only Comment: stopped after surgery- gastric Patient Tobacco Use Status: Former Tobacco user Tobacco use type: Cigarette Years Smoked: 2009 quit e-Cigarette/Vaping Use: Never Used Second Hand Smoke Exposure: No Advance Directives Date on File: 06/11/10 service: No Current occupational status: employed 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, [employer]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 Crabtree Code(s): Z98.84 - Bariatric surgery status Category: Surgical (2) Overweight (BMI 25.0-29.9): Code(s): E66.3 - Overweight Category: Medical Plan Will continue meal plan as above. Has increased her exercise. Is avoiding Excedrin for migraines as directed. Takes Tylenol. She can take biotin for hair loss. RTC Mar 22 9am for 15 min phone call.
[2025-01-18 09:43] VITALS: BMI 28.4
== END 2025-01-18 09:57 | disposition home or self-care (01) ==
LOC: HO.HBS 09:43
PROVIDERS: PCP Internal Medicine; Visit Provider Physician Assistant Surgical
DX: E66.3 Overweight (principal); Z68.28 Body mass index [BMI] 28.0-28.9, adult; Z90.3 Acquired absence of stomach [part of]; Z98.84 Bariatric surgery status
CPT/HCPCS: 98967

== ENCOUNTER 2025-03-11 13:47 | Outpatient (AMB) | payer OTHER, SELFPAY ==
--- NOTE | 2025-03-11 14:14 | A.OFFPC_ITS ---
Vital Signs 03/11/25 14:15 Height 5 ft 5 in Weight 166 lb 8 oz BMI 27.7 BP 126/70 Blood Pressure Location Lt brachial Position Sitting Pulse 69 Pulse Source Pulse Oximeter Temp 97.3 F Temp Source Temporal Artery Scan Pulse Oximetry (%) 96 Oxygen Delivery Method Room Air Intake Visit Reasons: sinues infection Intake Note: Patient is here to follow up on Sinus infection. 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 Denies fever and chills. The patient tried Theraflu, NyQuil, and Sudafed without relief. reports a home COVID-19 test was negative, but a flu test was not performed. Past medical history is significant for a gastric bypass surgery in September 2024. The patient reports an allergy to ibuprofen and takes a daily multivitamin. [facility] Medical History (Updated 12/24/24 @ 17:38 by Negra Herrera MD) Annual physical exam BMI 35.0-35.9,adult Obesity (BMI 30-39.9) Right hip pain Wrist pain, left H. pylori infection Colon cancer screening Impaired glucose tolerance Morbid obesity Epigastric pain Plantar fasciitis, right Right-sided chest pain Fatty liver Steatosis, liver Osteoarthritis of right knee History of anemia History of vitamin D deficiency Hx of low back pain IBS (irritable bowel syndrome) Anxiety and depression Psoriasis Fibromyalgia Migraine Recurrent major depression Peripheral vascular disease Osteoarthritis GERD (gastroesophageal reflux disease) Primary osteoarthritis of left knee COVID-19 Pneumonia Surgical History (Updated 03/11/25 @ 14:28 by KARINA Guallpa) History of gastric surgery History of total right knee replacement Status post total knee replacement, left History of esophagogastroduodenoscopy (EGD) (08/10/24) History of total left knee replacement History of laparoscopic cholecystectomy History of endoscopy History of colonoscopy History of total right knee replacement (TKR) History of bunionectomy of both great toes S/P right unicompartmental knee replacement History of foot surgery History of tubal ligation History of arthroscopy of both knees S/P cholecystectomy Family History Father Diabetes Hypertension Mother Myocardial infarct Sister Myocardial infarct Daughter Migraine Daughter Migraine Other CVA (cerebral vascular accident) Social History Household Members: Spouse Housing: House Are you a primary child care director to a significant other at home: No Do you presently have visiting nurse or other home services: No Alcohol intake: current Alcohol intake frequency: holidays/special occasions only Comment: stopped after surgery- gastric Patient Tobacco Use Status: Former Tobacco user Tobacco use type: Cigarette Years Smoked: 2009 quit e-Cigarette/Vaping Use: Never Used Second Hand Smoke Exposure: Yes Advance Directives Date on File: 06/11/10 service: No Current occupational status: employed 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, [employer]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 Cognitive needs: No Hearing needs: No Vision needs: Yes Questionnaire Thrive Questionnaire Date Thrive assessed: 12/18/24 I am a: Patient What is your living situation today?: I have a steady place to live Within the past 12 months, did the food you bought not last and you didn't have the money to get more?: I choose not to answer this question Within the past 12 months, did you worry whether your food would run out before you got money to buy more?: I choose not to answer this question Do you have trouble paying for medicines?: No Do you have trouble getting transportation to medical appointments?: No Do you have trouble paying your heating and electricity bill?: No Do you have trouble taking care of your child, family member or friend?: No Do you have trouble with day-to-day activities such as bathing, preparing meals, shopping, managing finances, etc.?: No Are you currently unemployed and looking for a job?: No Are you interested in more education?: No Please select the resources that you would like help with: None Currently or been in a relationship where the following occur: No concerns reported THRIVE Score: 0 HARRIS-7 AMB Questionnaire HARRIS-7 Date HARRIS - 7 assessed: 12/24/24 Source: Developed by Sina Lopezet B.W. Rob, John Gonzalez and colleagues, with an educational alexandra from [employer]. Physical exam (Primary Care) Vital Signs: Last Vital Signs Temp 97.3 F 03/11/25 14:15 Oxygen Delivery Method Room Air 03/11/25 14:15 General: Well-appearing, alert, oriented ?3, in no acute distress. HEENT: Normocephalic, atraumatic, PERRLA, EOMI, no scleral icterus. External ears normal, tympanic membranes intact bilaterally, no erythema or effusion. Nares patent, erythematous nasal mucosa, no discharge. Posterior oropharyngeal erythema. Neck Supple. Cardiovascular: RRR, S1-S2 appreciated, no murmurs, rubs or gallops. Respiratory: Lungs clear to auscultation bilaterally, no wheezes, rales or rhonchi. BMI result Body Mass Index 27.7 Tobacco/Smoking Status: Tobacco use Status Tobacco use date assessed 06/11/24 03/11/25 14:15 Patient Tobacco Use Status Former Tobacco user 03/11/25 14:15 Tobacco use type Cigarette 03/11/25 14:15 e-Cigarette/Vaping Use Never Used 03/11/25 14:15 Thrive Assessment: Date of Thrive Assessment Date Thrive assessed 12/18/24 03/11/25 14:15 Currently or been in a relationship where the following occur: No concerns reported Coding Level of Care Code Est Pt Level 3 (59896) Diagnoses Viral URI J06.9 Assessment & Plan Assessment & Plan (1) Viral URI: Code(s): J06.9 - Acute upper respiratory infection, unspecified Plan: The patient's presentation with a one-week history of headache, sore throat, clear rhinorrhea, and congestion is most likely secondary to a viral URI. There are currently no signs to suggest a bacterial superinfection. The plan is for symptomatic management. The patient was advised to discontinue all decongestant products (Sudafed) to avoid rebound congestion. Will initiate Flonase (fluticasone) nasal spray once daily for seven days to reduce inflammation, and recommend [id number] saline nasal spray for irrigation twice daily as needed. For analgesia, Tylenol (acetaminophen) 500 mg, 1-2 tablets up to three times daily as needed. The patient was instructed to return if symptoms worsen, a high fever develops, or if purulent nasal discharge occurs, as these could indicate a bacterial infection requiring re-evaluation. Medications: New fluticasone propionate 50 mcg/actuation administer into each nostril 1 spray intranasal DAILY 16 grams 0RF post nasal drip 7 days sodium chloride 0.9% (Simply Saline) 1 spray intranasal BID PRN 45 grams 0RF dry nasal passages desloratadine 5 mg PO DAILY 30 tabs 0RF
[2025-03-11 14:15] VITALS: BP 126/70; PULSE 69; TEMP 36.3; O2SAT 96; BMI 27.7
== END 2025-03-11 14:46 | disposition home or self-care (01) ==
LOC: HO.HMCH 13:47
PROVIDERS: PCP Internal Medicine; Visit Provider Student in an Organized Health Care Education/Training Program
DX: J06.9 Acute upper respiratory infection, unspecified (principal)

== ENCOUNTER 2025-03-22 09:17 | Outpatient (AMB) | payer OTHER, SELFPAY ==
--- NOTE | 2025-03-22 09:06 | A.OFFVIS_ITS ---
VS Expanded 03/22/25 09:09 Height 5 ft 5 in Weight 165 lb 6 oz BMI 27.5 Intake Visit Reasons: Phone PO LSG 09/25/24 Allergies ibuprofen (IBUPROFEN) Allergy (Unknown, Verified 03/11/25 14:15) GI UPSET Medication List - Last Reconciled 03/22/25 by GRICEL Monroy [bariatric vitamins ] biotin (Hair, Skin and Nails (biotin)) mcg PO cholecalciferol (vitamin D3) 25 mcg PO DAILY desloratadine 5 mg PO DAILY fluticasone propionate 50 mcg/actuation 1 spray intranasal DAILY 7 days psyllium husk (Metamucil) 1 tbsp PO DAILY sodium chloride 0.9% (Simply Saline) 1 spray intranasal BID PRN HPI Comments Details: This is a 60 yo F who is s/p LSG 09/25/2024. Presents for 6mo post op visit. Weight today is 165.6 pounds, representing a 5.2 pound weight loss from last visit on 01/18/2025 with a BMI today of 27.5. No complaints of nausea, emesis, abdominal pain. Rare reflux but not daily. This is related to pace of eating/drinking. Takes a laxative bought OTC- takes every other day. Present meal plan includes: Celebrate rebuild with 1 scoop at 8-10, 2-4, 7-9 Meal at 5 with 4 forks chicken or fish and 4 forks of broccoli or cauliflower Drinking 60 oz fluids MVI Exercise routine includes: stationary bike 400 calories most days walking 30 min 3-4 days per week has arthritis in knees, hip [facility] Medical History (Updated 12/24/24 @ 17:38 by Negra Herrera MD) Annual physical exam BMI 35.0-35.9,adult Obesity (BMI 30-39.9) Right hip pain Wrist pain, left H. pylori infection Colon cancer screening Impaired glucose tolerance Morbid obesity Epigastric pain Plantar fasciitis, right Right-sided chest pain Fatty liver Steatosis, liver Osteoarthritis of right knee History of anemia History of vitamin D deficiency Hx of low back pain IBS (irritable bowel syndrome) Anxiety and depression Psoriasis Fibromyalgia Migraine Recurrent major depression Peripheral vascular disease Osteoarthritis GERD (gastroesophageal reflux disease) Primary osteoarthritis of left knee COVID-19 Pneumonia Surgical History (Updated 03/11/25 @ 14:28 by KARINA Guallpa) History of gastric surgery History of total right knee replacement Status post total knee replacement, left History of esophagogastroduodenoscopy (EGD) (08/10/24) History of total left knee replacement History of laparoscopic cholecystectomy History of endoscopy History of colonoscopy History of total right knee replacement (TKR) History of bunionectomy of both great toes S/P right unicompartmental knee replacement History of foot surgery History of tubal ligation History of arthroscopy of both knees S/P cholecystectomy Family History Father Diabetes Hypertension Mother Myocardial infarct Sister Myocardial infarct Daughter Migraine Daughter Migraine Other CVA (cerebral vascular accident) Social History Household Members: Spouse Housing: House Are you a primary manager critical care unit to a significant other at home: No Do you presently have visiting nurse or other home services: No Alcohol intake: current Alcohol intake frequency: holidays/special occasions only Comment: stopped after surgery- gastric Patient Tobacco Use Status: Former Tobacco user Tobacco use type: Cigarette Years Smoked: 2009 quit e-Cigarette/Vaping Use: Never Used Second Hand Smoke Exposure: Yes Advance Directives Date on File: 06/11/10 service: No Current occupational status: employed 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 Cognitive needs: No Hearing needs: No Vision needs: Yes Telehealth Telehealth Telehealth Platform: Telephone Location of provider rendering services: practice address Location of patient: address on file Patient Identification confirmed using: Name, : Yes Telehealth method: voice only Patient verbally consented to treatment: Yes Patient verbally consented to billing insurance company: Yes Patient informed of any privacy concerns related to visit: Yes Minutes spent on Phone/Video with Pt.: 10 Assessment & Plan Assessment & Plan (1) Overweight (BMI 25.0-29.9): Code(s): E66.3 - Overweight Category: Medical (2) S/P laparoscopic sleeve gastrectomy: Comment: 09/25/2024 Dr. Crabtree Code(s): Z98.84 - Bariatric surgery status Category: Surgical Plan Continue meal plan per Dr Stallworth and weekly communication- she texts him . No restrictions on exercise- may lift weights. Try MoM or Miralax for constipation- can titrate dose. Labs ordered. Sent healthy foods list. RTC 3mo with Lore. Orders: Orders Ferritin Today Z98.84 - Bariatric surgery status Vitamin B1 Today Z98.84 - Bariatric surgery status C Reactive Protein Today Z98.84 - Bariatric surgery status Comprehensive Met. Panel Today Z.84 - Bariatric surgery status Zinc Today Z98.84 - Bariatric surgery status Complete Blood Count Auto Diff Today Z98.84 - Bariatric surgery status Insulin Today Z98.84 - Bariatric surgery status TSH reflex Free T4 Today Z98.84 - Bariatric surgery status Vitamin D 25-OH Total Today Z98.84 - Bariatric surgery status Vitamin A Today Z98.84 - Bariatric surgery status Vitamin B12 and Folate Today Z98.84 - Bariatric surgery status IRON PROFILE Today Z98.84 - Bariatric surgery status Lipid Panel Today Z98.84 - Bariatric surgery status Hemoglobin A1c Today Z98.84 - Bariatric surgery status
[2025-03-22 09:09] VITALS: BMI 27.5
== END 2025-03-22 09:21 | disposition home or self-care (01) ==
LOC: HO.HBS 09:17
PROVIDERS: PCP Internal Medicine; Visit Provider Physician Assistant Surgical
DX: E66.3 Overweight (principal); Z98.84 Bariatric surgery status; Z90.3 Acquired absence of stomach [part of]; Z68.27 Body mass index [BMI] 27.0-27.9, adult
CPT/HCPCS: 98967

== ENCOUNTER 2025-04-01 07:14 | Outpatient (REF) | payer OTHER, SELFPAY ==
[2025-04-01 07:36] LABS: MANUAL DIFF FLAG NO
[2025-04-01 07:57] LABS: Hematocrit 40.3 % (37.0-47.0); Hemoglobin 13.2 g/dl (12.0-16.0); Imm Gran Abs Auto 0.01 X10*3/uL (0.00-0.03); Imm Gran Pct Auto 0.2 % (0.0-0.4); Lymphocytes Absolute Auto 1.8 X10*3/uL (1.2-4.9); Mean Corpuscular HGB Conc 32.8 g/dl (31.0-35.0); Mean Corpuscular Hemoglobin 29.5 pg (27.0-33.0); Mean Corpuscular Volume 90.2 fL (80.0-98.0); NRBC Abs Auto 0.000 X10*3/uL (0.0-0.012); NRBC Pct Auto 0.0 /100WBC (0.0-0.2); Platelet Count 173 X10*3/uL (160-400); Red Blood Count 4.47 X10*6/uL (4.20-5.50); White Blood Count 4.8 X10*3/uL (4.8-10.8)
[2025-04-01 08:39] LABS: Alanine Aminotransferase 18 U/L (0-31); Albumin Level 4.6 g/dL (3.5-5.0); Alkaline Phosphatase 105 U/L (39-117); Anion Gap 13 (12-20); Aspartate Amino Transferase 24 U/L (5-31); Blood Urea Nitrogen 15 mg/dL (9-16); Calcium 9.2 mg/dL (8.4-10.2); Carbon Dioxide 26 mmol/L (22-29); Chloride 107 mmol/L (96-108); Cholesterol 201 mg/dL (<200); Estimated Glomerular Filt Rate > 60; HDL Cholesterol 61 mg/dL (>40); Iron 65 mcg/dL (30-160); Percent Iron Saturation 27 % (15-50); Potassium 3.9 mmol/L (3.3-5.1); Sodium 142 mmol/L (135-145); Total Iron Binding Capacity 243 mcg/dL (228-428); Total Protein 7.6 g/dL (6.5-8.0); Triglycerides 99 mg/dL (<150); Unsaturated Iron Binding 178 ug/dL
[2025-04-01 08:41] LABS: Ferritin 132 ng/mL (10-250)
[2025-04-01 08:57] LABS: Folate 13.9 ng/mL (> or = 4.0); Vitamin B12 513 pg/mL (200-900)
== END 2025-04-01 07:15 | disposition home or self-care (01) ==
LOC: HO.LAB 07:14
PROVIDERS: PCP Internal Medicine; Visit Provider Physician Assistant Surgical
DX: Z98.84 Bariatric surgery status (principal); Z13.29 Encounter for screening for other suspected endocrine disorder; Z13.1 Encounter for screening for diabetes mellitus; Z13.6 Encounter for screening for cardiovascular disorders
CPT/HCPCS: 36415; 80053; 80061; 82306; 82607; 82728; 82746; 83036; 83525; 83540; 84425; 84443; 84590; 84630; 85025; 86140